=== PATIENT | male | born 1950 | race Caucasian/White ===

== ENCOUNTER 2020-03-28 08:29 | Outpatient (REF) | payer MEDICARE, SELFPAY ==
[2020-03-28 08:51] LABS: MANUAL DIFF FLAG NO
[2020-03-28 08:54] LABS: Basophils Absolute Auto 0.1 X10*3/uL (0.0-0.2); Basophils Percent Auto 0.6 % (0-2); Eosinophils Absolute Auto 0.3 X10*3/uL (0.0-0.4); Eosinophils Percent Auto 3.1 % (0-4); Hemoglobin 14.1 g/dl (14.0-18.0); Imm Gran Abs Auto 0.02 X10*3/uL (0.00-0.03); Imm Gran Pct Auto 0.2 % (0.0-0.4); Lymphocytes Absolute Auto 2.6 X10*3/uL (1.2-4.9); Lymphocytes Percent Auto 29.6 % (20-40); Mean Corpuscular Hemoglobin 30.7 pg (27.0-33.0); Mean Corpuscular Volume 95.9 fL (80-98); Mean Platelet Volume 10.6 fL (9.4-12.4); Monocytes Absolute Auto 0.6 X10*3/uL (0.1-1.2); Monocytes Percent Auto 6.4 % (2-11); Neutrophils Absolute Auto 5.2 X10*3/uL (2.0-8.3); Neutrophils Percent Auto 60.1 % (45-73); Platelet Count 245 X10*3/uL (160-400); Red Blood Count 4.59 X10*6/uL (4.60-5.80); Red Cell Distribution Width 11.8 % (11.0-16.0); White Blood Count 8.7 X10*3/uL (4.8-10.8)
[2020-03-28 09:02] LABS: Estimated Average Glucose 151 mg/dL; Hemoglobin A1c % 6.9 %
[2020-03-28 09:16] LABS: Alanine Aminotransferase 22 U/L (0-40); Albumin Level 4.3 g/dL (3.5-5.0); Alkaline Phosphatase 54 U/L (39-117); Anion Gap 12 (12-20); Aspartate Amino Transferase 18 U/L (5-37); Bilirubin Total 0.3 mg/dL (0.0-1.0); Blood Urea Nitrogen 23 mg/dL (9-16); Calcium 8.7 mg/dL (8.4-10.2); Carbon Dioxide 26 mmol/L (22-29); Chloride 106 mmol/L (96-108); Cholesterol 129 mg/dL; Estimated Glomerular Filt Rate 58; Glucose Fasting 144 mg/dL (60-99); HDL Cholesterol 41 mg/dL; LDL Cholesterol Calculated 56 mg/dl; Potassium 4.4 mmol/l (3.3-5.1); Sodium 140 mmol/L (135-145); Total Protein 6.6 g/dL (6.5-8.0); Triglycerides 160 mg/dL
[2020-03-28 09:36] LABS: Thyroid Stimulating Hormone 1.42 mIU/mL (0.32-4.0)
[2020-03-28 09:48] LABS: Creatinine Urine 137.87 mg/dL; Microalbum/Creatinine Ratio Ur 4.3 ug/mg cr
== END 2020-03-28 08:30 | disposition home or self-care (01) ==
LOC: HO.LAB 08:29
PROVIDERS: PCP Physician Assistant; Visit Provider Physician Assistant
DX: I25.10 Atherosclerotic heart disease of native coronary artery without angina pectoris (principal); E11.9 Type 2 diabetes mellitus without complications; I10 Essential (primary) hypertension
CPT/HCPCS: 36415; 80053; 80061; 82043; 83036; 84443; 85025

== ENCOUNTER 2020-04-03 09:29 | Day surgery (SDC) | payer MEDICARE, SELFPAY ==
[2020-03-31 14:42] VITALS: BMI 23.3
--- NOTE | 2020-04-01 10:01 | HO.ANESPROP2 ---
Documented by User: Evy Gallardo 04/01/20 10:04 HPI - Anesthesia Eval Consult details Narrative: 69yo M for Colonoscopy PMFSH Past Medical History Medical History Asthma Back pain CAD (coronary artery disease) Diabetes Elevated cholesterol HTN (hypertension) Myocardial infarction Family History Family History Father Medical history unknown Mother COPD (chronic obstructive pulmonary disease) Myocardial infarction CAD (coronary artery disease) Surgical History Surgical History H/O arthroscopy H/O colonoscopy Hx of heart artery stent Social History Social History Smoking Status: Former smoker Smoking Quit Date: 1989 Use of substances other than those prescribed or required for medical reasons: No Have you been hit, kicked, punched, or otherwise hurt by someone within the past year? If so, by whom?: No Advance Directives Information Provided: No Recently lost weight without trying: No Narrative Narrative: Stable CAD. Follows with PCP. Meds Allergies Allergy/AdvReac Type Severity Reaction Status Date / Time clopidogrel [Plavix] Allergy Intermediate extremity Verified 03/31/20 14:51 swelling, itch shellfish derived Allergy Intermediate Swelling Verified 03/31/20 14:51 simvastatin Allergy Intermediate Muscle Pain Verified 03/31/20 14:51 Ticlid Allergy Intermediate extremity Verified 03/31/20 14:51 swelling, itch atorvastatin AdvReac Intermediate muscle Verified 03/31/20 14:51 weakness, other Darvon AdvReac Mild headache/mi Verified 03/31/20 14:51 graine Home Medications Medication Instructions Recorded Confirmed Type albuterol sulfate 90 mcg/actuation 2 puff INHALATION Q6H PRN 03/30/20 03/31/20 History aerosol inhaler aspirin 81 mg tablet,delayed 81 mg PO DAILY 03/30/20 03/31/20 History release carvedilol 6.25 mg tablet 6.25 mg PO BID 03/30/20 03/31/20 History ezetimibe 10 mg tablet 10 mg PO DAILY 03/30/20 03/31/20 History latanoprost 0.005 % eye drops 1 drp OPHTHALMIC (EYE) QPM 03/30/20 03/31/20 History lisinopril 2.5 mg tablet 2.5 mg PO DAILY 03/30/20 03/31/20 History metformin 1,000 mg tablet 1,000 mg PO BID 03/30/20 03/31/20 History nitroglycerin 0.4 mg sublingual 0.4 mg SUBLINGUAL Q5M PRN 03/30/20 03/31/20 History tablet rosuvastatin 10 mg tablet 10 mg PO DAILY 03/30/20 03/31/20 History sitagliptin 100 mg tablet 100 mg PO DAILY 03/30/20 03/31/20 History tadalafil 5 mg tablet 5 mg PO DAILY 03/30/20 03/31/20 History Exam Exam Date and Time: April 01, 2020 1001 Height,Weight and Vital Signs: Height 5 ft 6 in Weight 65.771 kg Pertinent Lab Results Pertinent Lab Results: Laboratory Tests 03/28/20 03/28/20 08:42 08:42 WBC 8.7 Hgb 14.1 Hct 44.0 Plt Count 245 Sodium 140 Potassium 4.4 Chloride 106 BUN 23 H Creatinine 1.23 Assessment and Plan Assessment Anesthesia Assessment: Chart Reviewed Documented by User: Marta Paez 04/03/20 10:35 [facility] Past Medical History Medical History Asthma Back pain CAD (coronary artery disease) Diabetes Elevated cholesterol HTN (hypertension) Myocardial infarction Family History Family History Father Medical history unknown Mother COPD (chronic obstructive pulmonary disease) Myocardial infarction CAD (coronary artery disease) Surgical History Surgical History H/O arthroscopy H/O colonoscopy Hx of heart artery stent Social History Social History Smoking Status: Former smoker Smoking Quit Date: 1989 Use of substances other than those prescribed or required for medical reasons: No Have you been hit, kicked, punched, or otherwise hurt by someone within the past year? If so, by whom?: No Advance Directives Information Provided: No Recently lost weight without trying: No Meds Allergies Allergy/AdvReac Type Severity Reaction Status Date / Time clopidogrel [Plavix] Allergy Intermediate extremity Verified 03/31/20 14:51 swelling, itch shellfish derived Allergy Intermediate Swelling Verified 03/31/20 14:51 simvastatin Allergy Intermediate Muscle Pain Verified 03/31/20 14:51 Ticlid Allergy Intermediate extremity Verified 03/31/20 14:51 swelling, itch atorvastatin AdvReac Intermediate muscle Verified 03/31/20 14:51 weakness, other Darvon AdvReac Mild headache/mi Verified 03/31/20 14:51 graine Home Medications Medication Instructions Recorded Confirmed Type albuterol sulfate 90 mcg/actuation 2 puff INHALATION Q6H PRN 03/30/20 03/31/20 History aerosol inhaler aspirin 81 mg tablet,delayed 81 mg PO DAILY 03/30/20 03/31/20 History release carvedilol 6.25 mg tablet 6.25 mg PO BID 03/30/20 03/31/20 History ezetimibe 10 mg tablet 10 mg PO DAILY 03/30/20 03/31/20 History latanoprost 0.005 % eye drops 1 drp OPHTHALMIC (EYE) QPM 03/30/20 03/31/20 History lisinopril 2.5 mg tablet 2.5 mg PO DAILY 03/30/20 03/31/20 History metformin 1,000 mg tablet 1,000 mg PO BID 03/30/20 03/31/20 History nitroglycerin 0.4 mg sublingual 0.4 mg SUBLINGUAL Q5M PRN 03/30/20 03/31/20 History tablet rosuvastatin 10 mg tablet 10 mg PO DAILY 03/30/20 03/31/20 History sitagliptin 100 mg tablet 100 mg PO DAILY 03/30/20 03/31/20 History tadalafil 5 mg tablet 5 mg PO DAILY 03/30/20 03/31/20 History Exam Airway Mallampati Class: I TM Dist: >3cm Neck ROM: Full Heart: RRR Lungs: CTA Assessment and Plan Assessment Anesthesia Assessment: Anesthesia Plan Discussed and Chart Reviewed Final Anesthetic Review NPO: Yes ASA Class: III Final Preanesthetic Review: Meds/Allgs Chart Reviewed, Consent Obtained/Reviewed and Anes Risks/Benef Reviewed Patient Risk: Intermediate Procedure Risk: Low Anesthetic Plan Anesthetic Plan: MAC: Disposition: Standard PACU
[2020-04-03 10:04] VITALS: BP 106/63; PULSE 78; RESP 18; TEMP 36.2; O2SAT 98
[2020-04-03] MEDS: Lactated Ringers 1,000 ML 100 ML IVCONT (10:12)
[2020-04-03 10:14] LABS: Glucose, Whole Blood 120 mg/dL (60-115)
[2020-04-03 11:03] VITALS: BP 85/42; PULSE 73; RESP 12; TEMP 35.9; O2SAT 95
--- NOTE | 2020-04-03 11:05 | PM.OP ---
Brief Operative Note Date of procedure: 04/03/20 Pre-op diagnosis: Screening Post-op diagnosis: other (Colon polyps, Diverticulosis, Internal hemorrhoids) Procedure: Colonoscopy to cecum and TI with biopsy and removal of polyps Surgeon: Calixto Goncalves Anesthesia: MAC Estimated blood loss (mL): 3.0 Pathology: other (A. Proximal ascending colon polyps B. Transverse colon polyp C. Polyp at 50cm) Condition: stable Disposition: PACU
[2020-04-03 11:18] VITALS: BP 92/50; PULSE 67; RESP 16; O2SAT 96
--- NOTE | 2020-04-03 11:20 | OP_ITS ---
SURGEON: Calixto Goncalves MD INDICATIONS: The patient presents for evaluation of colorectal cancer screening and personal history of tubular adenoma of the colon. Full consent has been obtained from him for this, including risks of bleeding and perforation. PREOPERATIVE DIAGNOSIS: POSTOPERATIVE DIAGNOSIS: PROCEDURE PERFORMED: Colonoscopy to the cecum and terminal ileum with biopsy and removal of polyps. ESTIMATED BLOOD LOSS: COMPLICATIONS: ANESTHESIA: Monitored anesthesia care. ASSISTANTS: SPECIMENS: PREOPERATIVE DIAGNOSES: Colorectal cancer screening and personal history of tubular adenoma of the colon. POSTOPERATIVE DIAGNOSES: Colorectal cancer screening and personal history of tubular adenoma of the colon, colon polyps, diverticulosis and internal hemorrhoids. DESCRIPTION OF PROCEDURE: The patient was placed in the left lateral decubitus position. The digital rectal exam revealed no abnormalities. The Olympus video pediatric colonoscope was entered into the rectum and advanced easily to the cecum. Once in the cecum, I did identify cecal pouch with appendiceal orifice and a normal-appearing ileocecal valve. The terminal ileum was cannulated and appeared normal. The scope was withdrawn back in the colon. The entire cecum and ileocecal valve appeared normal. The scope was slowly withdrawn assessing all mucosal surfaces carefully. Preparation was excellent. In the proximal ascending colon, were several 5 mm or less flat polyps, which were all biopsied and completely removed with cold biopsy forceps. In the transverse colon and at 50 cm, were flat approximately 4 or 5 mm polyps, which were biopsied and completely removed with cold biopsy forceps. I did not visualize any other polyps, colitis, nor angiodysplasia. There was a moderate amount of sigmoid diverticulosis. In the rectum, scope was retroflexed visualizing internal hemorrhoids, but no other pathology. The rectal mucosa appeared normal. The scope was straightened out and withdrawn from the patient. He tolerated the procedure well and was returned to recovery area in stable condition. IMPRESSION: 1. Colon polyps, status post biopsy and removal. 2. Diverticulosis. 3. Internal hemorrhoids. PLAN: The results of the biopsy will be checked. I would recommend a repeat colonoscopy in 5 years for further surveillance. He was advised to resume his aspirin in 24 hours. This has been discussed with his . MD DERIC Infante/MARION / [id number]
[2020-04-03 11:33] VITALS: BP 111/68; PULSE 60; RESP 16; TEMP 36.1; O2SAT 97
--- NOTE | 2020-04-03 12:25 | HO.POSTANES ---
Post Anesthesia Evaluation Post Anesthesia Evaluation Vital Signs: Vital Signs Temp Pulse Resp BP Pulse Ox 04/03/20 11:33 97 F 60 16 111/68 97 04/03/20 11:18 67 16 92/50 L 96 04/03/20 11:03 96.6 F L 73 12 85/42 L 95 04/03/20 10:04 97.2 F 78 18 106/63 98 Anesthesia: Monitored Mental Status: Awake Pain Control: Satisfactory Nausea/Vomiting: None Hydration: Adequate Anesthesia-Related Issues: No Anes. Related Issues
== END 2020-04-03 12:15 | disposition home or self-care (01) ==
PROVIDERS: PCP Physician Assistant; Visit Provider Internal Medicine
PROC: 0DJD8ZZ Inspection of Lower Intestinal Tract, Via Natural or Artificial Opening Endoscopic (ICD-10-PCS; CPT 45378; principal; 2020-04-03 10:30)
DX: Z12.11 Encounter for screening for malignant neoplasm of colon (principal); Z86.010 Personal history of colon polyps; D12.2 Benign neoplasm of ascending colon; D12.3 Benign neoplasm of transverse colon; D12.5 Benign neoplasm of sigmoid colon; K57.30 Diverticulosis of large intestine without perforation or abscess without bleeding; K64.8 Other hemorrhoids; J45.909 Unspecified asthma, uncomplicated; I10 Essential (primary) hypertension; E11.9 Type 2 diabetes mellitus without complications; I25.10 Atherosclerotic heart disease of native coronary artery without angina pectoris; Z98.61 Coronary angioplasty status; Z79.82 Long term (current) use of aspirin; Z79.84 Long term (current) use of oral hypoglycemic drugs; Z79.899 Other long term (current) drug therapy; Z87.891 Personal history of nicotine dependence; Z88.8 Allergy status to other drugs, medicaments and biological substances
CPT/HCPCS: 45380; 82947; 88305

== ENCOUNTER 2020-06-29 08:58 | Outpatient (REF) | payer MEDICARE, SELFPAY ==
[2020-06-29 10:32] LABS: MANUAL DIFF FLAG NO
[2020-06-29 10:36] LABS: Basophils Absolute Auto 0.1 X10*3/uL (0.0-0.2); Basophils Percent Auto 0.8 % (0-2); Eosinophils Absolute Auto 0.2 X10*3/uL (0.0-0.4); Eosinophils Percent Auto 2.4 % (0-4); Hematocrit 46.4 % (42-52); Hemoglobin 14.9 g/dl (14.0-18.0); Imm Gran Abs Auto 0.04 X10*3/uL (0.00-0.03); Imm Gran Pct Auto 0.4 % (0.0-0.4); Lymphocytes Absolute Auto 2.4 X10*3/uL (1.2-4.9); Lymphocytes Percent Auto 24.1 % (20-40); Mean Corpuscular HGB Conc 32.1 g/dl (31.0-36.0); Mean Corpuscular Hemoglobin 30.8 pg (27.0-33.0); Mean Corpuscular Volume 95.9 fL (80-98); Monocytes Absolute Auto 0.6 X10*3/uL (0.1-1.2); Monocytes Percent Auto 6.5 % (2-11); Neutrophils Absolute Auto 6.5 X10*3/uL (2.0-8.3); Neutrophils Percent Auto 65.8 % (45-73); Platelet Count 221 X10*3/uL (160-400); Red Blood Count 4.84 X10*6/uL (4.60-5.80); White Blood Count 9.9 X10*3/uL (4.8-10.8)
[2020-06-29 11:08] LABS: Alanine Aminotransferase 22 U/L (0-40); Albumin Level 4.4 g/dL (3.5-5.0); Alkaline Phosphatase 61 U/L (39-117); Anion Gap 13 (12-20); Aspartate Amino Transferase 21 U/L (5-37); Bilirubin Total 0.6 mg/dL (0.0-1.0); Blood Urea Nitrogen 19 mg/dL (9-16); Calcium 9.6 mg/dL (8.4-10.2); Carbon Dioxide 29 mmol/L (22-29); Chloride 106 mmol/L (96-108); Cholesterol 117 mg/dL; Estimated Glomerular Filt Rate 57; Glucose Fasting 147 mg/dL (60-99); HDL Cholesterol 40 mg/dL; LDL Cholesterol Calculated 64 mg/dl; Potassium 5.2 mmol/L (3.3-5.1); Sodium 143 mmol/L (135-145); Total Protein 6.9 g/dL (6.5-8.0); Triglycerides 66 mg/dL
[2020-06-29 11:41] LABS: Estimated Average Glucose 143 mg/dL; Hemoglobin A1c % 6.6 %
== END 2020-06-29 08:59 | disposition home or self-care (01) ==
LOC: HO.WFDLDS 08:58
PROVIDERS: Visit Provider Physician Assistant
DX: E11.9 Type 2 diabetes mellitus without complications (principal); I25.10 Atherosclerotic heart disease of native coronary artery without angina pectoris
CPT/HCPCS: 36415; 80053; 80061; 83036; 85025

== ENCOUNTER 2021-01-02 08:11 | Outpatient (REF) | payer MEDICARE, SELFPAY ==
[2021-01-02 09:04] LABS: Hematocrit 44.9 % (42-52); Hemoglobin 14.6 g/dl (14.0-18.0); Mean Corpuscular HGB Conc 32.5 g/dl (31.0-36.0); Mean Corpuscular Hemoglobin 30.7 pg (27.0-33.0); Mean Corpuscular Volume 94.3 fL (80-98); Mean Platelet Volume 10.6 fL (9.4-12.4); Platelet Count 291 X10*3/uL (160-400); Red Blood Count 4.76 X10*6/uL (4.60-5.80); Red Cell Distribution Width 12.2 % (11.0-16.0); White Blood Count 10.2 X10*3/uL (4.8-10.8)
[2021-01-02 09:13] LABS: Estimated Average Glucose 151 mg/dL; Hemoglobin A1c % 6.9 %
[2021-01-02 09:58] LABS: Alanine Aminotransferase 20 U/L (0-40); Albumin Level 4.3 g/dL (3.5-5.0); Alkaline Phosphatase 61 U/L (39-117); Anion Gap 15 (12-20); Aspartate Amino Transferase 17 U/L (5-37); Bilirubin Total 0.5 mg/dL (0.0-1.0); Blood Urea Nitrogen 18 mg/dL (9-16); Calcium 10.1 mg/dL (8.4-10.2); Carbon Dioxide 24 mmol/L (22-29); Chloride 106 mmol/L (96-108); Cholesterol 111 mg/dL; Estimated Glomerular Filt Rate 50; Glucose Fasting 153 mg/dL (60-99); HDL Cholesterol 39 mg/dL; LDL Cholesterol Calculated 47 mg/dl; Sodium 140 mmol/L (135-145); Total Protein 6.8 g/dL (6.5-8.0); Triglycerides 127 mg/dL
[2021-01-02 10:12] LABS: TSH reflex Free T4 1.38 uIU/mL (0.32-4.0)
[2021-01-02 10:24] LABS: Creatinine Urine 69.08 mg/dL; Microalbum/Creatinine Ratio Ur 15.9 ug/mg cr
== END 2021-01-02 08:12 | disposition home or self-care (01) ==
LOC: HO.LAB 08:11
PROVIDERS: PCP Physician Assistant; Visit Provider Physician Assistant
DX: Z12.5 Encounter for screening for malignant neoplasm of prostate (principal); I10 Essential (primary) hypertension; E11.9 Type 2 diabetes mellitus without complications
CPT/HCPCS: 36415; 80053; 80061; 82043; 83036; 84153; 84443; 85027

== ENCOUNTER 2021-01-27 09:41 | Outpatient (REF) | payer MEDICARE, SELFPAY ==
--- NOTE | ~2021-01-27 | CT_ITS ---
EXAMINATION: CT ABDOMEN AND PELVIS WITH CONTRAST CLINICAL INFORMATION: Left lower quadrant pain COMPARISON: None TECHNIQUE: Multidetector volumetric images were obtained from the superior aspect of the liver through the pubic symphysis following administration 85 mL of Omnipaque 350 intravenous contrast. Sagittal and coronal reformatted images were obtained on the technologist's workstation. Oral contrast: Yes This CT examination was performed using dose optimization techniques as appropriate, variously including the following: *Automated exposure control *Adjustment of mA and/or kV according to patient size (this includes techniques or standardized protocols for targeted exams where dose is matched to indication/reason for exam; i.e. extremities or head) *Use of iterative reconstruction technique DLP: 351 mGy-cm FINDINGS: LUNG BASES: There is a 3 mm semisolid left lower lobe pulmonary nodule. Bases are otherwise clear. LIVER, GALLBLADDER, AND BILIARY TREE: The liver is normal in size, shape, and attenuation. No focal hepatic lesion or biliary ductal dilatation is present. The gallbladder is unremarkable with no evidence of radiopaque gallstones, gallbladder wall thickening, or obvious pericholecystic inflammatory changes. PANCREAS: Unremarkable. SPLEEN: There is a wedge-shaped area of decreased attenuation seen in the spleen. This probably represents a splenic infarct. Differential would include changes related to trauma. There is no ascites. ADRENAL GLANDS: Unremarkable. KIDNEYS AND URETERS: The kidneys are normal in size, shape, and attenuation. No hydronephrosis, hydroureter, or calculi seen. No perinephric stranding. BLADDER: Unremarkable. GASTROINTESTINAL TRACT: There is diverticulosis of the colon. No evidence of diverticulitis is seen. There is question of mild bowel wall thickening of the duodenum. The small and large bowel are otherwise unremarkable. The appendix is unremarkable. ABDOMINAL WALL: There is a small right inguinal hernia containing fat. LYMPH NODES: Normal. VASCULAR: There is evidence of atherosclerotic disease. No aneurysm is seen. PELVIC VISCERA: The prostate gland is slightly enlarged measuring 3.8 x 4.2 cm. OSSEOUS STRUCTURES: Unremarkable. CT/CT abdomen pelvis w con IMPRESSION: Wedge-shaped low-attenuation in the spleen suggestive of a splenic infarct. Differential would include changes related to trauma. Clinical correlation recommended. Diverticulosis of the colon. No evidence of diverticulitis. Question wall thickening of the duodenum.
[2021-01-27] MEDS: iohexoL 350 MG/ML 100 ML INFUS..BTL IV (12:51)
[2021-01-27] MEDS: Barium Sulfate Oral (Berry) 450 ML ORAL.SUSP 900 ML PO (12:52)
== END 2021-01-27 09:42 | disposition home or self-care (01) ==
LOC: HO.CT 09:41
PROVIDERS: PCP Physician Assistant; Visit Provider Physician Assistant
DX: R10.32 Left lower quadrant pain (principal)
CPT/HCPCS: 74177; Q9967

== ENCOUNTER 2021-04-17 08:02 | Outpatient (REF) | payer MEDICARE, SELFPAY ==
[2021-04-17 10:14] LABS: Estimated Average Glucose 140 mg/dL; Hemoglobin A1c % 6.5 %
[2021-04-17 10:20] LABS: Alanine Aminotransferase 27 U/L (0-40); Albumin Level 4.2 g/dL (3.5-5.0); Alkaline Phosphatase 55 U/L (39-117); Anion Gap 12 (12-20); Aspartate Amino Transferase 18 U/L (5-37); Bilirubin Total 0.6 mg/dL (0.0-1.0); Blood Urea Nitrogen 17 mg/dL (9-16); Calcium 9.5 mg/dL (8.4-10.2); Carbon Dioxide 26 mmol/L (22-29); Chloride 107 mmol/L (96-108); Cholesterol 134 mg/dL; Estimated Glomerular Filt Rate 58; Glucose Fasting 125 mg/dL (60-99); HDL Cholesterol 39 mg/dL; LDL Cholesterol Calculated 69 mg/dl; Potassium 5.2 mmol/L (3.3-5.1); Sodium 140 mmol/L (135-145); Total Protein 6.5 g/dL (6.5-8.0); Triglycerides 130 mg/dL
[2021-04-17 10:43] LABS: TSH reflex Free T4 1.54 uIU/mL (0.32-4.0)
== END 2021-04-17 08:03 | disposition home or self-care (01) ==
LOC: HO.LAB 08:02
PROVIDERS: PCP Physician Assistant; Visit Provider Physician Assistant
DX: R10.32 Left lower quadrant pain (principal); I10 Essential (primary) hypertension; E11.9 Type 2 diabetes mellitus without complications
CPT/HCPCS: 36415; 80048; 80053; 80061; 83036; 84443

== ENCOUNTER 2021-07-16 09:16 | Outpatient (REF) | payer MEDICARE, SELFPAY ==
[2021-07-16 10:00] LABS: Hematocrit 43.2 % (42.0-52.0); Mean Corpuscular HGB Conc 32.4 g/dl (31.0-36.0); Mean Corpuscular Hemoglobin 30.7 pg (27.0-33.0); Mean Corpuscular Volume 94.7 fL (80.0-98.0); Mean Platelet Volume 10.9 fL (9.4-12.4); Platelet Count 227 X10*3/uL (160-400); Red Blood Count 4.56 X10*6/uL (4.60-5.80); Red Cell Distribution Width 12.1 % (11.0-16.0); White Blood Count 8.5 X10*3/uL (4.8-10.8)
[2021-07-16 10:25] LABS: Alanine Aminotransferase 27 U/L (0-40); Albumin Level 4.2 g/dL (3.5-5.0); Alkaline Phosphatase 55 U/L (39-117); Anion Gap 12 (12-20); Aspartate Amino Transferase 19 U/L (5-37); Bilirubin Total 0.5 mg/dL (0.0-1.0); Blood Urea Nitrogen 22 mg/dL (9-16); Calcium 9.7 mg/dL (8.4-10.2); Carbon Dioxide 27 mmol/L (22-29); Chloride 108 mmol/L (96-108); Cholesterol 128 mg/dL; Estimated Glomerular Filt Rate > 60; Glucose Fasting 133 mg/dL (60-99); HDL Cholesterol 40 mg/dL; LDL Cholesterol Calculated 61 mg/dl; Potassium 4.7 mmol/L (3.3-5.1); Sodium 142 mmol/L (135-145); Total Protein 6.6 g/dL (6.5-8.0); Triglycerides 138 mg/dL
[2021-07-16 10:26] LABS: Estimated Average Glucose 148 mg/dL; Hemoglobin A1c % 6.8 %
[2021-07-16 10:50] LABS: TSH reflex Free T4 1.22 uIU/mL (0.32-4.0)
[2021-07-16 11:19] LABS: Creatinine Urine 177.25 mg/dL; Microalbum/Creatinine Ratio Ur 12.9 ug/mg cr
[2021-07-16 11:21] LABS: Prostate Specific Antigen Scr 3.94 ng/mL (<0.05-4.0)
== END 2021-07-16 09:17 | disposition home or self-care (01) ==
LOC: HO.LAB 09:16
PROVIDERS: PCP Physician Assistant; Visit Provider Physician Assistant
DX: Z12.5 Encounter for screening for malignant neoplasm of prostate (principal); E11.9 Type 2 diabetes mellitus without complications; I10 Essential (primary) hypertension
CPT/HCPCS: 36415; 80053; 80061; 82043; 83036; 84153; 84443; 85027

== ENCOUNTER 2021-12-18 07:13 | Outpatient (REF) | payer MEDICARE, SELFPAY ==
[2021-12-18 07:49] LABS: Hematocrit 46.1 % (42.0-52.0); Hemoglobin 14.8 g/dl (14.0-18.0); Mean Corpuscular HGB Conc 32.1 g/dl (31.0-36.0); Mean Corpuscular Hemoglobin 30.3 pg (27.0-33.0); Mean Corpuscular Volume 94.5 fL (80.0-98.0); Mean Platelet Volume 10.2 fL (9.4-12.4); Platelet Count 247 X10*3/uL (160-400); Red Blood Count 4.88 X10*6/uL (4.60-5.80); Red Cell Distribution Width 12.3 % (11.0-16.0); White Blood Count 7.9 X10*3/uL (4.8-10.8)
[2021-12-18 08:21] LABS: Estimated Average Glucose 148 mg/dL; Hemoglobin A1c % 6.8 %
[2021-12-18 09:07] LABS: Alanine Aminotransferase 32 U/L (0-40); Albumin Level 4.3 g/dL (3.5-5.0); Alkaline Phosphatase 59 U/L (39-117); Anion Gap 10 (12-20); Aspartate Amino Transferase 25 U/L (5-37); Bilirubin Total < 0.2 mg/dL (0.0-1.0); Blood Urea Nitrogen 17 mg/dL (9-16); Calcium 9.4 mg/dL (8.4-10.2); Carbon Dioxide 28 mmol/L (22-29); Chloride 107 mmol/L (96-108); Cholesterol 124 mg/dL; Estimated Glomerular Filt Rate 50; Glucose Fasting 173 mg/dL (60-99); HDL Cholesterol 35 mg/dL; LDL Cholesterol Calculated 57 mg/dl; Sodium 140 mmol/L (135-145); Total Protein 6.7 g/dL (6.5-8.0); Triglycerides 160 mg/dL
== END 2021-12-18 07:14 | disposition home or self-care (01) ==
LOC: HO.LAB 07:13
PROVIDERS: PCP Physician Assistant; Visit Provider Physician Assistant
DX: E11.9 Type 2 diabetes mellitus without complications (principal); I10 Essential (primary) hypertension
CPT/HCPCS: 36415; 80053; 80061; 83036; 85027

== ENCOUNTER 2021-12-23 13:57 | Outpatient (REF) | payer MEDICARE, SELFPAY ==
--- NOTE | ~2021-12-23 | XR_ITS ---
EXAMINATION: XR CHEST CLINICAL INFORMATION: Shortness of breath COMPARISON: Previous chest x-ray November 2007 TECHNIQUE: 2 views of the chest were obtained. FINDINGS: No significant abnormality is noted involving the heart, lungs, mediastinum, bony thorax or soft tissues. XR/XR chest 2V IMPRESSION: Unremarkable examination.
== END 2021-12-23 13:58 | disposition home or self-care (01) ==
LOC: HO.XRAY 13:57
PROVIDERS: PCP Physician Assistant; Visit Provider Physician Assistant
DX: R06.02 Shortness of breath (principal)
CPT/HCPCS: 71046

== ENCOUNTER 2022-01-13 07:50 | Outpatient (REF) | payer MEDICARE, SELFPAY ==
--- NOTE | 2022-01-13 13:13 | PFT_ITS ---
FLOWS: FEV1 96% of predicted at 2.69 L. FVC 94% of predicted at 3.59 L. FEV1 to FVC ratio of 0.75. No bronchodilator response. LUNG VOLUMES: Total lung capacity 83% of predicted at 5.30 L. Residual volume 73% of predicted at 1.67 L. Slow vital capacity 89% of predicted at 3.63 L. Expiratory reserve volume 57% of predicted at 0.60 L. Diffusion capacity is mildly decreased. IMPRESSION: No obstructive or restrictive ventilatory defect. No bronchodilator response. Decreased diffusion capacity suggests emphysema. Mitch Torres MD AP/MODL / [id number]
== END 2022-01-13 07:51 | disposition home or self-care (01) ==
LOC: HO.RESP 07:50
PROVIDERS: PCP Physician Assistant; Visit Provider Physician Assistant
DX: R06.02 Shortness of breath (principal)
CPT/HCPCS: 94060; 94727; 94729

== ENCOUNTER 2022-06-18 07:37 | Outpatient (REF) | payer MEDICARE, SELFPAY ==
[2022-06-18 08:32] LABS: Hematocrit 43.6 % (42.0-52.0); Hemoglobin 14.1 g/dl (14.0-18.0); Mean Corpuscular HGB Conc 32.3 g/dl (31.0-36.0); Mean Corpuscular Hemoglobin 30.7 pg (27.0-33.0); Mean Platelet Volume 10.8 fL (9.4-12.4); Platelet Count 236 X10*3/uL (160-400); Red Blood Count 4.59 X10*6/uL (4.60-5.80); Red Cell Distribution Width 11.9 % (11.0-16.0); White Blood Count 7.6 X10*3/uL (4.8-10.8)
[2022-06-18 08:50] LABS: Estimated Average Glucose 148 mg/dL; Hemoglobin A1c % 6.8 %
[2022-06-18 09:16] LABS: Alanine Aminotransferase 18 U/L (0-40); Albumin Level 4.1 g/dL (3.5-5.0); Alkaline Phosphatase 47 U/L (39-117); Anion Gap 12 (12-20); Aspartate Amino Transferase 15 U/L (5-37); Bilirubin Total 0.5 mg/dL (0.0-1.0); Blood Urea Nitrogen 19 mg/dL (9-16); Calcium 9.6 mg/dL (8.4-10.2); Carbon Dioxide 27 mmol/L (22-29); Chloride 109 mmol/L (96-108); Cholesterol 119 mg/dL; Estimated Glomerular Filt Rate 58; Glucose Fasting 128 mg/dL (60-99); HDL Cholesterol 37 mg/dL; LDL Cholesterol Calculated 55 mg/dl; Potassium 4.7 mmol/L (3.3-5.1); Sodium 143 mmol/L (135-145); Total Protein 6.3 g/dL (6.5-8.0); Triglycerides 138 mg/dL
[2022-06-18 09:36] LABS: TSH reflex Free T4 1.56 uIU/mL (0.32-4.0)
[2022-06-18 10:40] LABS: Creatinine Urine 214.05 mg/dL; Microalbum/Creatinine Ratio Ur 14.9 ug/mg cr
== END 2022-06-18 07:38 | disposition home or self-care (01) ==
LOC: HO.LAB 07:37
PROVIDERS: PCP Physician Assistant; Visit Provider Physician Assistant
DX: E11.9 Type 2 diabetes mellitus without complications (principal); I10 Essential (primary) hypertension; I25.10 Atherosclerotic heart disease of native coronary artery without angina pectoris
CPT/HCPCS: 36415; 80053; 80061; 82043; 83036; 84443; 85027

== ENCOUNTER 2022-06-21 13:31 | Outpatient (REF) | payer MEDICARE, SELFPAY ==
--- NOTE | ~2022-06-21 | XR_ITS ---
EXAMINATION: XR LUMBOSACRAL SPINE CLINICAL INFORMATION: Dorsalgia COMPARISON: None TECHNIQUE: Three views of the lumbosacral spine. FINDINGS: There is maintained thoracic kyphosis. The vertebral heights and alignment is normal. The disc heights are normal. No visible acute fracture, dislocation or subluxation seen. No aggressive lytic or sclerotic process seen. The paravertebral soft tissues are normal. The SI joints are normal. XR/XR lumbar spine 2-3V IMPRESSION: Unremarkable lumbar spine exam. No visible acute fracture, dislocation or lytic process seen.
== END 2022-06-21 13:32 | disposition home or self-care (01) ==
LOC: HO.XRAY 13:31
PROVIDERS: PCP Physician Assistant; Visit Provider Nurse Practitioner Family
DX: M54.9 Dorsalgia, unspecified (principal)
CPT/HCPCS: 72100

== ENCOUNTER 2022-07-15 13:00 | Outpatient (RCR) | payer MEDICARE, SELFPAY ==
--- NOTE | 2022-07-12 17:12 | MHC.PT.EP ---
[facility] [place] Office [place] Office [place] Office [address] Padmini Sylvester [address] [phone] F: [phone] F: [phone] F: [phone] F: [phone] Physical Therapy Plan of Care Date of Evaluation: Date of Surgery: Diagnosis: dorsalgia Assessment: Patient is a 71 y.o. male who is referred to PT by Dr. Lizette Pineda MD with Dx of dorsalgia. PT diagnosis is acute on chronic low back pain from mechanical dysfunction from muscle imbalances in L hip and lumbar spine. Patient impairments include pain, limited ROM, weakness, antalgic gait. Patient current functional limitations are bending, twisting, lifting, golfing, prolonged sitting. Patient will benefit from skilled PT to address aforementioned impairments and functional limitations to meet established goals. Frequency and Duration: The patient will be seen 1x/week for 6 weeks Short Term Goals: 3 weeks Patient demonstrates consistency and independence with HEP to self manage symptoms. Patient presents with L hip flexion strength 5/5 to be able to bend/squat to low surfaces. Correction Goals: 6 weeks Patient presents with increased L glute med strength 5/5 to be able to sit for prolonged period of time without sxs. Patient presents with increased lumbar SB 15 degrees bilaterally to be able to play gold. Treatment Plan: Modalities to reduce pain, spasms and effusion. Manual therapy to restore motion and function. Therapeutic exercise to improve strength and flexibility. Neuromuscular re-education for posture and balance. Therapeutic activities to return to functional activities of daily living. Electronically signed by: Cameron Mathew, PT, DPT Please sign and return to therapist. Thank you for your referral.
--- NOTE | 2022-08-25 17:45 | MHC.PT.DC ---
[facility] [place] Office [place] Office [place] Office [address] Padmini Sylvester [address] [phone] F: [phone] F: [phone] F: [phone] F: [phone] Physical Therapy Discharge Report Diagnosis: dorsalgia Date of Surgery: Date of Evaluation: 07/12/22 Date of Discharge: 08/25/22 Treatments to Date: 2 Cancellations to Date: No Shows to Date: Discharge Status: Visit Non-compliance Discharge Summary: Patient was last treated in PT on 07/15/2022. He then let us know he was going on vacation and scheduled FUP for his return on 08/24/2022. He did not show to this appointment and is therefore discharged from PT. He will need new Rx to return to PT in the future. Electronically signed by: Cameron Mathew, PT, DPT Please sign and return to therapist. Thank you for your referral.
== END 2022-08-25 17:45 | disposition home or self-care (01) ==
LOC: HO.PT 13:00
PROVIDERS: PCP Physician Assistant; Visit Provider Nurse Practitioner Family
DX: M54.9 Dorsalgia, unspecified (principal)
CPT/HCPCS: 97110; 97140; 97162

== ENCOUNTER 2022-12-16 07:22 | Outpatient (REF) | payer MEDICARE, SELFPAY ==
[2022-12-16 08:46] LABS: Hematocrit 41.9 % (42.0-52.0); Hemoglobin 13.5 g/dl (14.0-18.0); Mean Corpuscular HGB Conc 32.2 g/dl (31.0-36.0); Mean Corpuscular Hemoglobin 30.7 pg (27.0-33.0); Mean Corpuscular Volume 95.2 fL (80.0-98.0); Mean Platelet Volume 10.7 fL (9.4-12.4); Platelet Count 245 X10*3/uL (160-400); Red Cell Distribution Width 11.9 % (11.0-16.0); White Blood Count 8.9 X10*3/uL (4.8-10.8)
[2022-12-16 09:35] LABS: Alanine Aminotransferase 17 U/L (0-40); Alkaline Phosphatase 50 U/L (39-117); Anion Gap 11 (12-20); Aspartate Amino Transferase 18 U/L (5-37); Bilirubin Total 0.3 mg/dL (0.0-1.0); Blood Urea Nitrogen 21 mg/dL (9-16); Calcium 9.4 mg/dL (8.4-10.2); Carbon Dioxide 25 mmol/L (22-29); Chloride 106 mmol/L (96-108); Cholesterol 113 mg/dL; Estimated Glomerular Filt Rate > 60; Glucose Fasting 98 mg/dL (60-99); HDL Cholesterol 35 mg/dL; LDL Cholesterol Calculated 43 mg/dl; Potassium 3.8 mmol/L (3.3-5.1); Sodium 138 mmol/L (135-145); Total Protein 6.5 g/dL (6.5-8.0); Triglycerides 175 mg/dL
[2022-12-16 09:36] LABS: Creatinine Urine 124.37 mg/dL; Microalbum/Creatinine Ratio Ur 15.2 ug/mg cr
== END 2022-12-16 07:23 | disposition home or self-care (01) ==
LOC: HO.LAB 07:22
PROVIDERS: PCP Internal Medicine; Visit Provider Physician Assistant
DX: I10 Essential (primary) hypertension (principal); I25.10 Atherosclerotic heart disease of native coronary artery without angina pectoris; E11.9 Type 2 diabetes mellitus without complications
CPT/HCPCS: 36415; 80053; 80061; 82043; 85027

== ENCOUNTER 2022-12-20 08:36 | Outpatient (AMB) | payer MEDICARE, SELFPAY ==
--- NOTE | 2022-12-20 08:42 | A.OFFPC_ITS ---
Vital Signs 12/20/22 08:43 Height 5 ft 7 in Weight 156 lb BMI 24.4 BP 138/72 Blood Pressure Location Lt brachial Position Sitting Pulse 59 Pulse Source Pulse Oximeter Temp Source Skin Pulse Oximetry (%) 98 Oxygen Delivery Method Room Air Intake Visit Reasons: DM, HTN, Back pain Allergies clopidogrel [Plavix] Allergy (Intermediate, Verified 12/20/22 09:04) extremity swelling, itch shellfish derived Allergy (Intermediate, Verified 12/20/22 09:04) Swelling simvastatin Allergy (Intermediate, Verified 12/20/22 09:04) Muscle Pain ticlopidine [From Ticlid] Allergy (Intermediate, Verified 12/20/22 09:04) Extremity swelling, itch atorvastatin Adverse Reaction (Intermediate, Verified 12/20/22 09:04) muscle weakness, other propoxyphene [From Darvon] Adverse Reaction (Mild, Verified 12/20/22 09:04) Headache, Migraine Medication List - Last Reconciled 12/20/22 by Lamont Currie PA-C albuterol sulfate 90 mcg/actuation 2 puffs inhalation Q6H aspirin 81 mg PO DAILY carvedilol 9.375 mg (1.5 x 6.25 mg) PO BID codeine-guaifenesin 10-100 mg/5 mL 5 mL PO Q6H PRN 5 days diclofenac sodium 1% (Arthritis Pain (diclofenac)) 2 grams topical QID PRN 10 days ezetimibe 10 mg PO DAILY latanoprost 0.005% 1 drp ophthalmic (eye) QPM lisinopril 2.5 mg PO DAILY metformin 1,000 mg PO BID 90 days nitroglycerin 0.4 mg sublingual Q5M PRN rosuvastatin 10 mg PO DAILY sitagliptin phosphate (Januvia) 100 mg PO DAILY 90 days tadalafil 5 mg PO DAILY Tobacco use date assessed: 12/20/22 Fall risk assessment: No Falls in past year Last assessed Fall Risk: 12/20/22 Dental Screening Dental Screen Date: 12/20/22 Did you have a dental visit in the last 12 months?: Yes Did you have a dental problem in the last 6 months where you did not have access to dental care?: No Was dental information given to patient?: Patient has dentist HPI DM, HTN, Back pain HPI Details Patient is a 72-year-old male here today for a f/u visit. Patient has a past medical history significant for type 2 diabetes, hypertension, hyperlipidemia, coronary artery disease, asthma, splenic infarct . . Concerns--> report having loose / water stools as of late, unclear if diet related. does report having heart burn at time as of late. Uses Tums which does relieve the symptoms. Of note noted slight anemia on most recent labs which makes peptic ulcer disease concerning. Will refer to GI for possible endoscopy. Also weighed reports issues with his concentration over the last 2 years, he is unsure if this is related to COVID infections or new COVID MRNA vaccines. He reports family members have noticed he has been impulsive and having difficulty with his concentration. He reports this has became an issue in his life. ? .. ? Type 2 diabetes: Most recent A1c is 6.8. Patient reports his diet has not changed much over last 3 months. LDL below 100. ? .. ? Hypertension: Patient reports blood pressures have been stable at home. Denies any headaches, chest pain, shortness of breath. .. CAD: Lipid panel has been acceptable on current dose of statin therapy. He otherwise denies any chest discomfort, dizziness, shortness of breath. 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 Laboratory Tests 12/16/22 12/16/22 12/16/22 07:32 07:32 07:35 RBC 4.40 L Hgb 13.5 L BUN 21 H Creatinine 1.10 Cholesterol 113 LDL Cholesterol, C alc 43 Urine Microalbumin 19.0 PFSH Medical History (Updated 12/20/22 @ 09:20 by Lamont Currie PA-C) Asthma Back pain CAD (coronary artery disease) Diabetes Elevated cholesterol HTN (hypertension) Myocardial infarction Surgical History H/O arthroscopy H/O cataract extraction H/O colonoscopy Hx of heart artery stent Family History Father Medical history unknown Mother COPD (chronic obstructive pulmonary disease) Myocardial infarction CAD (coronary artery disease) Social History Housing: House Alcohol intake: current Alcohol intake frequency: holidays/special occasions only Patient Tobacco Use Status: Former Tobacco user (33 years ago) Quit Date: 1985 Tobacco use type: Cigarette Cigarette Packs Per Day: 0.5 e-Cigarette/Vaping Use: Never Used Second Hand Smoke Exposure: No service: Yes Current occupational status: retired Cognitive needs: No Hearing needs: No Vision needs: No Questionnaire Thrive Questionnaire Date Thrive assessed: 06/20/22 AUDIT C Alcohol Use Questionnaire (AUDIT-C) 1. How often do you have a drink containing alcohol?: Monthly or less 2. How many drinks containing alcohol do you have on a typical day when you are drinking?: 1 or 2 3. How often do you have six or more drinks on one occasion?: Never Total Score: 1 AMARILYS-7 AMB Questionnaire AMARILYS-7 Date AMARILYS - 7 assessed: 06/20/22 Source: Developed by Drs. Calixto Gold, Daina Escobar, Jeremie Porras and colleagues, with an educational carri from [employer]. Review of Systems Const Denies headache(s) Eyes Denies loss of vision ENT Denies vertigo, Denies dizziness, Denies headache(s) and Denies sore throat Card Denies chest pain, Denies leg edema and Denies lightheadedness Resp Denies cough, Denies hemoptysis and Denies wheezing GI Denies abdominal pain, Denies melena, Denies constipation, Denies diarrhea and Denies vomiting Denies dysuria, Denies urinary frequency and Denies urinary urgency Musc Denies arthralgias, Denies joint swelling, Denies numbness and Denies tingling Neuro Denies Abnormal speech present, Denies behavioral changes, Denies vertigo, Denies dizziness, Denies headache(s), Denies loss of vision, Reports memory loss, Denies numbness and Denies tingling Psych Denies anxiety, Denies behavioral changes, Denies depression, Reports difficulty concentrating, Reports memory loss and Denies panic attacks Sumeet/Lymph Denies easy bleeding and Denies easy bruising Aller/Immun Denies wheezing Physical exam (Primary Care) Vital Signs: Last Vital Signs Pulse 59 12/20/22 08:43 BP 138/72 12/20/22 08:43 Pulse Ox 98 12/20/22 08:43 Oxygen Delivery Method Room Air 12/20/22 08:43 BMI result Body Mass Index 24.4 Tobacco/Smoking Status: Tobacco use Status Tobacco use date assessed 12/20/22 12/20/22 08:44 Patient Tobacco Use Status Former Tobacco user (33 12/20/22 08:44 years ago) Tobacco use type Cigarette 12/20/22 08:44 e-Cigarette/Vaping Use Never Used 12/20/22 08:44 Thrive Assessment: Date of Thrive Assessment Date Thrive assessed 06/20/22 12/20/22 08:44 Const General: healthy appearing, no acute distress, alert and awake Nutritional Appearance: well nourished Orientation/consciousness: oriented to person, oriented to place and oriented to time HENMT Ears: TM's normal bilaterally General nose exam: Normal nasal mucous membranes and turbinates present Eyes Conjunctivae: conjunctivae normal Sclerae: sclerae normal Pupils: Equal, round and reactive pupils present Neck Neck: Yes no lymphadenopathy and Yes no JVD Thyroid: Thyroid normal Carotids: no bruits Resp Effort & Inspection: normal respiratory effort and not tachypneic Auscultation: no crackles, no rales, no rhonchi and no wheezes Cardio Rate: regular rate Rhythm: regular rhythm Heart sounds: no murmurs and normal S1 and S2 GI Palpation (GI): Soft to palpation, nontender, no hepatomegaly and no splenomegaly Auscultation: normal bowel sounds Skin General skin exam: no rashes or lesions noted and dry skin Neuro General: oriented to person, oriented to place and oriented to time Cranial nerves: Yes Equal, round and reactive pupils present Speech: No Abnormal speech present Gait exam (Neuro): Normal gait present Motor exam (neuro): no tremor noted Extrem Right upper extremity: full ROM Left upper extremity: full ROM Right lower extremity: full ROM; no edema Left lower extremity: full ROM; no edema Psych Mental Status: mental status grossly normal Speech and movement: Normal speech and movement present Affect: normal affect Attitude: cooperative Thought process: Normal thought process present Results AMB Hemoglobin A1c AMB Hemoglobin A1c 6.8 % Last Edit by KAYLEIGH Link on 12/20/22 09:04 Results Reviewed Results Reviewed: Laboratory Last Values Hgb A1c (Clinic) 6.8 % (4.0-6.0) H 12/20/22 08:44 Assessment and Plan Assessment & Plan (1) DMII (diabetes mellitus, type 2): Code(s): E11.9 - Type 2 diabetes mellitus without complications Qualifiers: Diabetes mellitus complication status: without complication 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 Goal A1c is to remain below 7.0. (2) CAD (coronary artery disease): Code(s): I25.10 - Atherosclerotic heart disease of [place] coronary artery without angina pectoris Qualifiers: Associated angina: without angina Coronary Disease-Associated Artery/Lesion type: [place] artery [place] vs. transplanted heart: [place] heart Qualified Code(s): I25.10 - Atherosclerotic heart disease of [place] coronary artery without angina pectoris Plan: Patient has been asymptomatic, most recent lipid panel showing excellent control over his total cholesterol and LDL. Goal LDL to remain below 70 (3) HTN (hypertension): Code(s): I10 - Essential (primary) hypertension Qualifiers: Hypertension type: essential hypertension Qualified Code(s): I10 - Essential (primary) hypertension Plan: Patient's blood pressure acceptable today in office. Will continue current antihypertensive medication with goal blood pressure to remain below 140/90 (4) GERD (gastroesophageal reflux disease): Code(s): K21.9 - Gastro-esophageal reflux disease without esophagitis Qualifiers: Esophagitis presence: without esophagitis Qualified Code(s): K21.9 - Gastro-esophageal reflux disease without esophagitis Plan: Patient reports recently having intermittent episodes of GERD like symptoms to which he takes Tums and relieves his symptoms. Also having some lower abdominal pain and some loose stools at times. Unsure if this is diet related. Noted slight anemia on most recent labs which raises concern for peptic ulcer disease. Will start PPI therapy and refer to GI for possible endoscopy. (5) Anemia: Code(s): D64.9 - Anemia, unspecified Qualifiers: Anemia type: iron deficiency Iron deficiency anemia type: chronic blood loss Qualified Code(s): D50.0 - Iron deficiency anemia secondary to blood loss (chronic) (6) Short-term memory loss: Code(s): R41.3 - Other amnesia (7) Concentration deficit: Code(s): R41.840 - Attention and concentration deficit Plan: As above patient has noted some concentration deficits that have been hinder to his lifestyle. He reports his family has noted his concentration issues and impulsivity. Also having some memory impairment in the short-term. Will send for MRI of brain to evaluate for any intracranial pathology that could explain his symptoms. Orders: Orders IRON PROFILE Today D50.0 - Iron deficiency anemia secondary to blood loss (chronic), D50.9 - Iron deficiency anemia, unspecified Complete Blood Count no Diff Today D50.0 - Iron deficiency anemia secondary to blood loss (chronic) Lipid Panel Today I25.10 - Atherosclerotic heart disease of [place] coronary artery without angina pectoris Comprehensive [place]. Panel Fast Today I25.10 - Atherosclerotic heart disease of [place] coronary artery without angina pectoris Prostate Specific Antigen Scr Today I25.10 - Atherosclerotic heart disease of [place] coronary artery without angina pectoris, Z12.5 - Encounter for screening for malignant neoplasm of prostate MR head/brain wo con Today R41.3 - Other amnesia, R41.840 - Attention and concentration deficit AMB Hemoglobin A1c Today E11.9 - Type 2 diabetes mellitus without complications Referrals Gastroenterology Referral D64.9 - Anemia, unspecified, K21.9 - Gastro- esophageal reflux disease without esophagitis Neurology Referral R41.3 - Other amnesia, R41.840 - Attention and concentration deficit Medications: New omeprazole 20 mg PO DAILY 90 days 90 caps 1RF D50.0 - Iron deficiency anemia secondary to blood loss (chronic), K21.9 - Gastro-esophageal reflux disease without esophagitis Refilled tadalafil 5 mg PO DAILY 90 tabs 1RF N52.9 - Male erectile dysfunction, unsp ecified Coding Level of Care Code Est Pt Level 4 (38159) Diagnoses DMII (diabetes mellitus, type 2) E11.9 Diabetes mellitus complication status: without complication Diabetes mellitus [facility] insulin use: without [facility] use CAD (coronary artery disease) I25.10 Associated angina: without angina Coronary Disease-Associated Artery/Lesion type: [place] artery [place] vs. transplanted heart: [place] heart HTN (hypertension) I10 Hypertension type: essential hypertension GERD (gastroesophageal reflux disease) K21.9 Esophagitis presence: without esophagitis Anemia D50.0 Anemia type: iron deficiency Iron deficiency anemia type: chronic blood loss Short-term memory loss R41.3 Concentration deficit R41.840
[2022-12-20 08:43] VITALS: BP 138/72; PULSE 59; O2SAT 98; BMI 24.4
== END 2022-12-20 09:35 | disposition home or self-care (01) ==
PROVIDERS: PCP Internal Medicine; Visit Provider Physician Assistant
DX: E11.9 Type 2 diabetes mellitus without complications (principal); I25.10 Atherosclerotic heart disease of native coronary artery without angina pectoris; I10 Essential (primary) hypertension; K21.9 Gastro-esophageal reflux disease without esophagitis; D50.0 Iron deficiency anemia secondary to blood loss (chronic); R41.3 Other amnesia; R41.840 Attention and concentration deficit
CPT/HCPCS: 83036; 99214

== ENCOUNTER 2023-01-23 12:51 | Outpatient (REF) | payer MEDICARE, SELFPAY ==
[2023-01-23 13:30] LABS: Hematocrit 47.3 % (42.0-52.0); Hemoglobin 15.3 g/dl (14.0-18.0); Mean Corpuscular HGB Conc 32.3 g/dl (31.0-36.0); Mean Corpuscular Volume 95.7 fL (80.0-98.0); Mean Platelet Volume 10.7 fL (9.4-12.4); Platelet Count 247 X10*3/uL (160-400); Red Blood Count 4.94 X10*6/uL (4.60-5.80); Red Cell Distribution Width 12.2 % (11.0-16.0); White Blood Count 10.7 X10*3/uL (4.8-10.8)
[2023-01-23 13:53] LABS: Alanine Aminotransferase 27 U/L (0-40); Albumin Level 4.3 g/dL (3.5-5.0); Alkaline Phosphatase 57 U/L (39-117); Anion Gap 13 (12-20); Aspartate Amino Transferase 21 U/L (5-37); Bilirubin Total 0.4 mg/dL (0.0-1.0); Blood Urea Nitrogen 19 mg/dL (9-16); Calcium 9.9 mg/dL (8.4-10.2); Carbon Dioxide 25 mmol/L (22-29); Chloride 106 mmol/L (96-108); Cholesterol 134 mg/dL (<200); Estimated Glomerular Filt Rate > 60; Glucose Fasting 93 mg/dL (60-99); HDL Cholesterol 43 mg/dL (>40); Iron 87 mcg/dL (45-160); LDL Cholesterol Calculated 61 mg/dL (<100); Percent Iron Saturation 28 % (15-50); Potassium 4.6 mmol/L (3.3-5.1); Sodium 139 mmol/L (135-145); Total Iron Binding Capacity 313 mcg/dL (228-428); Triglycerides 152 mg/dL (<150); Unsaturated Iron Binding 226 ug/dL
[2023-01-23 14:06] LABS: Prostate Specific Antigen Scr 4.32 ng/mL (<0.05-4.0)
== END 2023-01-23 12:52 | disposition home or self-care (01) ==
LOC: HO.LAB 12:51
PROVIDERS: PCP Physician Assistant; Visit Provider Physician Assistant
DX: Z12.5 Encounter for screening for malignant neoplasm of prostate (principal); D50.0 Iron deficiency anemia secondary to blood loss (chronic); I25.10 Atherosclerotic heart disease of native coronary artery without angina pectoris
CPT/HCPCS: 36415; 80053; 80061; 83540; 84153; 85027

== ENCOUNTER 2023-02-03 10:43 | Outpatient (REF) | payer MEDICARE, SELFPAY ==
[2023-02-03 12:31] LABS: PSA,Total (Free>4and<10) 4.74 ng/mL (0.00-4.00)
[2023-02-05 11:13] LABS: Free Prostate Spec Ag 1.5 ng/mL; Percent Free Prostate Spec Ag 35 % (calc) (>25); Prostate Specific Ag Total 4.3 ng/mL (< OR = 4.0)
== END 2023-02-03 10:44 | disposition home or self-care (01) ==
LOC: HO.LAB 10:43
PROVIDERS: PCP Physician Assistant; Visit Provider Nurse Practitioner Family
DX: Z12.5 Encounter for screening for malignant neoplasm of prostate (principal); R97.20 Elevated prostate specific antigen [PSA]
CPT/HCPCS: 36415; 84153; 84154

== ENCOUNTER 2023-02-10 08:01 | Outpatient (REF) | payer MEDICARE, SELFPAY ==
--- NOTE | ~2023-02-10 | MR_ITS ---
EXAMINATION: MR BRAIN WITHOUT CONTRAST CLINICAL INFORMATION: Attention and concentration deficit COMPARISON: None TECHNIQUE: Multiplanar multisequence MR imaging of the brain was obtained without intravenous contrast. FINDINGS: There is no acute infarct on diffusion-weighted imaging. There is a 6 mm focus of susceptibility artifact and T2 hypointense signal in the anterior mesial left temporal lobe, which may reflect sequela of microhemorrhage versus a small cavernoma. No extra-axial collection or mass effect/herniation. Scattered periventricular and deep white matter T2 FLAIR hyperintensities consistent with mild underlying microangiopathy. No hydrocephalus. The ventricles are normal in morphology and size. The major flow voids at the skull base are preserved. The midline structures are normal. The cerebellar tonsils are normally positioned. The craniocervical junction is normal. Marrow signal is within normal limits. The visualized soft tissues are without significant abnormality. Small left maxillary sinus retention cyst. Mild ethmoid sinus mucosal thickening. MR/MR head/brain wo con IMPRESSION: 1. No acute intracranial abnormality. 2. Mild chronic white matter microangiopathy. 3. 6 mm focus of susceptibility artifact in the mesial left temporal lobe may reflect sequela of microhemorrhage versus a small cavernoma.
== END 2023-02-10 08:02 | disposition home or self-care (01) ==
LOC: HO.MRI 08:01
PROVIDERS: PCP Physician Assistant; Visit Provider Physician Assistant
DX: R41.840 Attention and concentration deficit (principal); R41.3 Other amnesia
CPT/HCPCS: 70551

== ENCOUNTER 2023-05-16 08:22 | Outpatient (AMB) | payer MEDICARE, SELFPAY ==
--- NOTE | 2023-05-16 08:41 | MHC.OFFVIS ---
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 Intake Note: Pt presents tothe office for new pt evaluation for attention and concentration deficit. 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 Allergies clopidogrel [Plavix] Allergy (Intermediate, Verified 05/16/23 08:44) extremity swelling, itch shellfish derived Allergy (Intermediate, Verified 05/16/23 08:44) Swelling simvastatin Allergy (Intermediate, Verified 05/16/23 08:44) Muscle Pain ticlopidine [From Ticlid] Allergy (Intermediate, Verified 05/16/23 08:44) Extremity swelling, itch atorvastatin Adverse Reaction (Intermediate, Verified 05/16/23 08:44) muscle weakness, other propoxyphene [From Darvon] Adverse Reaction (Mild, Verified 05/16/23 08:44) Headache, Migraine Medication List - Last Reconciled 05/16/23 by Regina Stratton MD albuterol sulfate 90 mcg/actuation 2 puffs inhalation Q6H aspirin 81 mg PO DAILY carvedilol 9.375 mg (1.5 x 6.25 mg) PO BID codeine-guaifenesin 10-100 mg/5 mL 5 mL PO Q6H PRN 5 days diclofenac sodium 1% (Arthritis Pain (diclofenac)) 2 grams topical QID PRN 10 days ezetimibe 10 mg PO DAILY latanoprost 0.005% 1 drp ophthalmic (eye) QPM lisinopril 2.5 mg PO DAILY metformin 1,000 mg PO BID 90 days nitroglycerin 0.4 mg sublingual Q5M PRN omeprazole 20 mg PO DAILY 90 days rosuvastatin 10 mg PO DAILY sitagliptin phosphate (Januvia) 100 mg PO DAILY 90 days tadalafil 10 mg PO DAILY HPI HPI Comments History of Present Illness Details 72y/o male comes for evaluation of short term memory issues.He had COVID last year and since then he has noticed short term memory issues. He has trouble recalling thoughts, conversations etc.He also feels he frequently interjects conversations so he would not forget what he was going to say. He denies misplacing things or forgetting medications. He always had problems with names. He is independent in all his ADLS.He usually has a routine of prayer and meditation in the morning. But he has realized he cannot focus and sit through , he is distracted in 5 minutes. His sleep is good. He denies any head injury . He denies depression and anxiety. [facility] Medical History (Updated 05/16/23 @ 09:35 by Regina Stratton MD) Mild cognitive disorder Back pain Diabetes Asthma Elevated cholesterol Myocardial infarction CAD (coronary artery disease) HTN (hypertension) Surgical History H/O cataract extraction H/O colonoscopy Hx of heart artery stent H/O arthroscopy Family History Father Medical history unknown Mother COPD (chronic obstructive pulmonary disease) Myocardial infarction CAD (coronary artery disease) Social History Housing: House Alcohol intake: current Alcohol intake frequency: holidays/special occasions only Patient Tobacco Use Status: Former Tobacco user (33 years ago) Quit Date: 1985 Tobacco use type: Cigarette Cigarette Packs Per Day: 0.5 e-Cigarette/Vaping Use: Never Used Second Hand Smoke Exposure: No service: Yes Current occupational status: retired Cognitive needs: No Hearing needs: No Vision needs: No Physical Exam Vital Signs: Last Vital Signs Pulse 64 05/16/23 08:44 Resp 15 05/16/23 08:44 BP 132/78 05/16/23 08:44 Pulse Ox 98 05/16/23 08:44 Oxygen Delivery Method Room Air 05/16/23 08:44 BMI result Body Mass Index 25.3 Const General: cooperative, healthy appearing, comfortable and no acute distress Nutritional Appearance: average body habitus Orientation/consciousness: patient oriented x3 Eyes Pupils: Equal, round and reactive pupils present Neuro General: patient oriented x3, gait normal, tone normal and no focal motor deficits Cranial nerves: Yes Facial sensation intact/muscles of mastication intact, Yes Equal, round and reactive pupils present, Yes Bilaterally intact EOM present, Yes Nystagmus not present, Yes Normal facial strength present, Yes Midline tongue present and Yes Symmetric palate elevation present Cognition (Neuro): normal cognition Gait exam (Neuro): Normal gait present Motor exam (neuro): 5/5 motor strength present throughout and Normal motor muscle tone present throughout Deep tendon reflexes (DTR's): Right triceps reflex intensity grade: 1+, Left triceps reflex intensity grade: 1+, Rt Biceps (C5, C6): 1+, Left biceps reflex intensity grade: 1+, Right brachioradialis reflex intensity grade: 1+, Left brachioradialis reflex intensity grade: 1+, Right patellar reflex intensity grade: 1+ and Left patellar reflex intensity grade: 1+ Coordination: [id number] test normal Orientation What is the (year) (season) (date) (day) (month)?: year, season, date, day and month Where are we (state) (county) (town or city) (hospital) (floor)?: state, county, town or city, hospital/clinic and floor Registration Name of 3 unrelated objects clearly and slowly, then ask patient to repeat all 3 of them. (1st repeat determines score. Make sure they can repeat all three): object 1, object 2 and object 3 Attention & Calculation (CHOOSE ONE) Spell WORLD backwards (DLROW): 5 letters Recall Ask patient to repeat the 3 items from question #3.: object 1 Language Show patient a wristwatch & ask what it is. Repeat for pencil.: watch and pencil Ask the patient to repeat the phrase 'No ifs, ands, or buts' after you.: correct Ask the patient to 'take a piece of paper with their right hand' 'fold paper in half' 'place paper on floor': take paper in right hand, fold paper in half and place paper on floor Print the sentence 'CLOSE YOUR EYES' on a piece. If patient actually closes eyes then score.: followed written direction Give patient a blank piece of paper & ask to write a sentence. Score if it contains a noun & verb.: sentence contains subject and verb Ask patient to copy figure of intersecting pentagons exactly. Score if all 10 angles & 2 intersects are included.: all 10 angles present & 2 are intersected Score Score: 28 Assessment & Plan Assessment & Plan (1) Mild cognitive disorder: Comment: age related ? poor attention ? anxiety Code(s): F09 - Unspecified mental disorder due to known physiological condition Plan He did well on MMSE. I reviewed his MRI- showed mild white matter changes and an incidental cavernoma I will check his TSH B12 Vit D levels Discussed about various mind games and i will refer him for cognitive therapy to improve attention. Orders: Orders TSH reflex Free T4 Today R41.3 - Other amnesia Vitamin B12 and Folate Today R41.3 - Other amnesia Vitamin D 25-OH (D2 and D3) Today R41.3 - Other amnesia Erythrocyte Sedimentation Rate Today R41.3 - Other amnesia Referrals Speech and Hearing Referral R41.3 - Other amnesia Coding Level of Care Code New Pt Level 4 (91335) Diagnoses Mild cognitive disorder F09
[2023-05-16 08:44] VITALS: BP 132/78; PULSE 64; RESP 15; O2SAT 98; BMI 25.3
== END 2023-05-16 09:24 | disposition home or self-care (01) ==
PROVIDERS: PCP Internal Medicine; Visit Provider Psychiatry & Neurology Neurology
DX: G31.84 Mild cognitive impairment of uncertain or unknown etiology (principal)
CPT/HCPCS: 99204

== ENCOUNTER 2023-05-16 08:22 | Outpatient (REF) | payer MEDICARE, SELFPAY ==
[2023-05-16 11:33] LABS: Erythrocyte Sedimentation Rate 7 MM/HR (0-15)
[2023-05-16 11:40] LABS: TSH reflex Free T4 1.52 uIU/mL (0.32-4.0)
[2023-05-16 12:17] LABS: Vitamin B12 207 pg/mL (200-900)
[2023-05-16 13:30] LABS: Folate 10.5 ng/mL (> or = 4.0)
[2023-05-20 12:13] LABS: Vitamin D 25-OH, D2 <4 ng/mL; Vitamin D 25-OH, D3 15 ng/mL; Vitamin D 25-OH, Total 15 ng/mL (30-100)
== END 2023-05-16 08:23 | disposition home or self-care (01) ==
LOC: HO.LAB 08:22
PROVIDERS: PCP Internal Medicine; Visit Provider Psychiatry & Neurology Neurology
DX: R41.3 Other amnesia (principal); F09 Unspecified mental disorder due to known physiological condition
CPT/HCPCS: 36415; 82306; 82607; 82746; 84443; 85652; 99202

== ENCOUNTER 2023-05-24 13:58 | Outpatient (REF) | payer MEDICARE, SELFPAY ==
[2023-05-25 12:48] LABS: Gliadin Deamidated IgA Ab <1.0 U/mL; Gliadin Deamidated IgG Ab <1.0 U/mL; Immunoglobulin A 210 mg/dL (70-320); Transglutaminase Ab IgG <1.0 U/mL; Transglutaminase IgA <1.0 U/mL
[2023-05-27 12:38] LABS: Endomysial IgA Antibody Negative (Negative)
== END 2023-05-24 13:59 | disposition home or self-care (01) ==
LOC: HO.LAB 13:58
PROVIDERS: PCP Physician Assistant; Visit Provider Internal Medicine
DX: R19.4 Change in bowel habit (principal); R19.7 Diarrhea, unspecified
CPT/HCPCS: 36415; 82784; 86231; 86258; 86364

== ENCOUNTER 2023-05-30 06:23 | Day surgery (SDC) | payer MEDICARE, SELFPAY ==
[2023-05-30 06:41] VITALS: BMI 25.0
--- NOTE | 2023-05-30 07:20 | HO.ANESPROP2 ---
Documented by User: Evy Gallardo NP 05/26/23 09:34 HPI - Anesthesia Eval Consult details Narrative: 72yo M for Upper Endoscopy Anesthesia Pre-Procedure Meds Is the patient on any of the following meds?: Any other SGL-1 drugs or drugs that delay gastric emptying (Januvia) [facility] Active Problems Active Problems: All Active Problems (Updated 05/16/23 @ 09:35 by Regina Stratton MD) Mild cognitive disorder (Acute) Elevated PSA (Acute) Concentration deficit (Acute) Short-term memory loss (Acute) Anemia (Acute) GERD (gastroesophageal reflux disease) (Acute) Post-viral cough syndrome (Acute) SOB (shortness of breath) (Acute) BPPV (benign paroxysmal positional vertigo) (Acute) Exposure to COVID-19 virus (Acute) Back pain (Acute) Pre-op evaluation (Acute) Splenic infarct (Chronic) Cough (Acute) Loose stools (Acute) LLQ abdominal pain (Acute) Annual physical exam (Acute) Erectile dysfunction (Acute) Tick bite (Acute) HTN (hypertension) (Acute) DMII (diabetes mellitus, type 2) (Acute) CAD (coronary artery disease) (Acute) Past Medical History Medical History Mild cognitive disorder Back pain Diabetes Asthma Elevated cholesterol Myocardial infarction CAD (coronary artery disease) HTN (hypertension) Family History Family History Father Medical history unknown Mother COPD (chronic obstructive pulmonary disease) Myocardial infarction CAD (coronary artery disease) Surgical History Surgical History H/O foot surgery H/O cataract extraction H/O colonoscopy Hx of heart artery stent H/O arthroscopy Social History Social History Housing: House Alcohol intake: current Alcohol intake frequency: holidays/special occasions only Patient Tobacco Use Status: Former Tobacco user Quit Date: 1989 Tobacco use type: Cigarette Cigarette Packs Per Day: 0.5 Smoked in Last 30 Days: No e-Cigarette/Vaping Use: Never Used Second Hand Smoke Exposure: No Use of substances other than those prescribed or required for medical reasons: No Are you DNR?: No Advance Directives: No Advance Directives Information Provided: Yes service: Yes Current occupational status: retired Cognitive needs: No Hearing needs: No Vision needs: No Meds Allergies Allergy/AdvReac Type Severity Reaction Status Date / Time clopidogrel [Plavix] Allergy Intermediate extremity Verified 05/30/23 06:40 swelling, itch shellfish derived Allergy Intermediate Swelling Verified 05/30/23 06:40 simvastatin Allergy Intermediate Muscle Pain Verified 05/30/23 06:40 ticlopidine [From Ticlid] Allergy Intermediate Extremity Verified 05/30/23 06:40 swelling, itch atorvastatin AdvReac Intermediate muscle Verified 05/30/23 06:40 weakness, other propoxyphene [From Darvon] AdvReac Mild Headache, Verified 05/30/23 06:40 Migraine Home Medications Medication Instructions Recorded Confirmed Last Taken Type aspirin 81 mg tablet,delayed 81 mg PO DAILY 03/30/20 05/30/23 05/27/23 History release latanoprost 0.005 % eye drops 1 drp ophthalmic (eye) QPM 03/30/20 05/30/23 Unknown History nitroglycerin 0.4 mg sublingual 0.4 mg sublingual Q5M PRN Chest 03/30/20 05/30/23 Unknown History tablet Pain Exam Pertinent Lab Results Pertinent Lab Results: Laboratory Tests 01/23/23 13:07 WBC 10.7 Hgb 15.3 Hct 47.3 Plt Count 247 Sodium 139 Potassium 4.6 D Chloride 106 Carbon Dioxide 25 BUN 19 H Creatinine 1.11 Assessment and Plan Assessment Anesthesia Assessment: Chart Reviewed Documented by User: Elissa Hood DO 05/30/23 07:32 HPI - Anesthesia Eval Anesthesia Pre-Procedure Meds If Yes to any meds - educate patient: Pt education - increased risk of aspiration (last dose 05/27/23) PMFSH Past Medical History Medical History Mild cognitive disorder Back pain Diabetes Asthma Elevated cholesterol Myocardial infarction CAD (coronary artery disease) HTN (hypertension) Family History Family History Father Medical history unknown Mother COPD (chronic obstructive pulmonary disease) Myocardial infarction CAD (coronary artery disease) Family history of problems with anesthesia: No Surgical History Surgical History H/O foot surgery H/O cataract extraction H/O colonoscopy Hx of heart artery stent H/O arthroscopy History of Problems with Anesthesia: No Social History Social History Housing: House Alcohol intake: current Alcohol intake frequency: holidays/special occasions only Patient Tobacco Use Status: Former Tobacco user Quit Date: 1989 Tobacco use type: Cigarette Cigarette Packs Per Day: 0.5 Smoked in Last 30 Days: No e-Cigarette/Vaping Use: Never Used Second Hand Smoke Exposure: No Use of substances other than those prescribed or required for medical reasons: No Are you DNR?: No Advance Directives: No Advance Directives Information Provided: Yes service: Yes Current occupational status: retired Cognitive needs: No Hearing needs: No Vision needs: No Meds Allergies Allergy/AdvReac Type Severity Reaction Status Date / Time clopidogrel [Plavix] Allergy Intermediate extremity Verified 05/30/23 06:40 swelling, itch shellfish derived Allergy Intermediate Swelling Verified 05/30/23 06:40 simvastatin Allergy Intermediate Muscle Pain Verified 05/30/23 06:40 ticlopidine [From Ticlid] Allergy Intermediate Extremity Verified 05/30/23 06:40 swelling, itch atorvastatin AdvReac Intermediate muscle Verified 05/30/23 06:40 weakness, other propoxyphene [From Darvon] AdvReac Mild Headache, Verified 05/30/23 06:40 Migraine Home Medications Medication Instructions Recorded Confirmed Last Taken Type aspirin 81 mg tablet,delayed 81 mg PO DAILY 03/30/20 05/30/23 05/27/23 History release latanoprost 0.005 % eye drops 1 drp ophthalmic (eye) QPM 03/30/20 05/30/23 Unknown History nitroglycerin 0.4 mg sublingual 0.4 mg sublingual Q5M PRN Chest 03/30/20 05/30/23 Unknown History tablet Pain Exam Exam Date and Time: May 30, 2023 0720 Height,Weight and Vital Signs: Height 5 ft 7 in Weight 72.393 kg Vital Signs Temperature 98.0 F 05/30/23 07:24 Pulse Rate 77 05/30/23 07:24 Respiratory Rate 16 05/30/23 07:24 Blood Pressure 141/76 H 05/30/23 07:24 Pulse Oximetry 98 05/30/23 07:24 Oxygen Delivery Method Room Air 05/30/23 07:24 Temperature 98.0 F 05/30/23 07:24 Pulse Rate 77 05/30/23 07:24 Respiratory Rate 16 05/30/23 07:24 Blood Pressure 141/76 H 05/30/23 07:24 Pulse Oximetry 98 05/30/23 07:24 Oxygen Delivery Method Room Air 05/30/23 07:24 Airway Mallampati Class: I TM Dist: >3cm Neck ROM: Full Loose/Missing/Broken Teeth: No Heart: S1S2 Lungs: CTAB Assessment and Plan Final Anesthetic Review Family History of Problems with Anesthesia: No History of Problems with Anesthesia: No NPO: Yes ASA Class: III Final Preanesthetic Review: No Changes in Pt Med Stat, Meds/Allgs Chart Reviewed, Consent Obtained/Reviewed and Anes Risks/Benef Reviewed Patient Risk: Intermediate Procedure Risk: Low Anesthetic Plan Anesthetic Plan: GA (elective intubation - patient had full meal last night and is on Januvia) and Agree w/ Assess. and Plan Disposition: Standard PACU
[2023-05-30 07:24] VITALS: BP 141/76; PULSE 77; RESP 16; TEMP 36.7; O2SAT 98
[2023-05-30] MEDS: Lactated Ringers 1,000 ML 100 ML IVCONT (07:26)
[2023-05-30 08:03] VITALS: BP 105/51; PULSE 81; RESP 16; TEMP 36.2; O2SAT 98
[2023-05-30 08:06] LABS: Glucose, Whole Blood 146 mg/dL (60-115)
[2023-05-30 08:08] VITALS: BP 105/61; PULSE 74; RESP 16; O2SAT 98
--- NOTE | 2023-05-30 08:08 | P.BOP_ITS ---
Brief Operative Note Date of Service: 05/30/23 Pre-op diagnosis: GERD, Abdominal pain Post-op diagnosis: other (Esophagitis, R/O Greenwood's, Hiatal hernia) Procedure: EGD with biopsies Surgeon: Calixto Goncalves MD Anesthesia: GETA Was an Beauty [employer] used for this Procedure?: No Estimated blood loss (mL): 2.0 Pathology: other (A. Descending duodenum B. Gastric antrum C. Esophagus 34-35cm) Condition: stable Disposition: PACU
[2023-05-30 08:13] VITALS: BP 102/54; PULSE 78; RESP 16; O2SAT 96
[2023-05-30 08:18] VITALS: BP 114/55; PULSE 78; RESP 16; O2SAT 96
[2023-05-30 08:33] VITALS: BP 114/53; PULSE 67; RESP 18; TEMP 36.5; O2SAT 97
--- NOTE | 2023-05-30 09:06 | OP_ITS ---
DATE OF SERVICE: 05/30/2023 SURGEON: Calixto Goncalves MD INDICATIONS: The patient presents for evaluation of gastroesophageal reflux and abdominal discomfort. Full consent was obtained from him for this, including risks of bleeding and perforation. PREOPERATIVE DIAGNOSIS: POSTOPERATIVE DIAGNOSIS: Gastroesophageal reflux and abdominal discomfort. Erosive esophagitis, rule out Greenwood's esophagus, hiatal hernia, rule out celiac disease, minimal gastric retention. PROCEDURE PERFORMED: Esophagogastroduodenoscopy with biopsies. ESTIMATED BLOOD LOSS: COMPLICATIONS: ANESTHESIA: General anesthesia. ASSISTANTS: SPECIMENS: PREOPERATIVE DIAGNOSES: Gastroesophageal reflux and abdominal discomfort. DESCRIPTION OF PROCEDURE: The patient was placed in the supine position. The Olympus video gastroscope was passed in the posterior oropharynx and upper esophagus under direct vision. The scope was passed slowly to the distal esophagus. The gastroesophageal junction appeared at 35 cm. Extending from this to 34 cm were 2 segments of possible Greenwood's mucosa with some overlying ulceration. There was no evidence of any lesions. There was no stricture. The scope entered the stomach. There was a small to moderate-sized hiatal hernia. The scope was advanced to the pylorus and the duodenum was cannulated to the descending portion. The duodenum including the bulb appeared normal without mass or ulceration. Biopsies were obtained in the duodenum. The scope was withdrawn back to the stomach. There was a small amount of retained old food but peristalsis appeared normal. The gastric antrum and body appeared normal. Biopsies were obtained from the gastric antrum. The scope was retroflexed visualizing the proximal stomach carefully, which appeared normal, without any sign of mass, ulceration, nor any food. The scope was straightened and withdrawn back to the esophagus. Biopsies were obtained between 34 and 35 cm. Proximal to 34 cm, the esophageal mucosa appeared normal. The scope was withdrawn from the patient. He tolerated the procedure well and was returned to the recovery area in stable condition. IMPRESSION: 1. Erosive esophagitis, rule out Greenwood's esophagus. 2. Hiatal hernia. 3. Minimal gastric retention. 4. Rule out celiac disease. 5. Rule out Helicobacter pylori. PLAN: The results of the biopsies will be checked. He had been using omeprazole 20 mg daily but did stop that recently. I shall switch him to omeprazole 40 mg daily. He has been advised to continue that electronic wirer. He was advised not to use any NSAIDs, but he will resume his daily 81 mg aspirin tomorrow. He was advised to not eat for several hours before bedtime. Given the ulcerations, I will plan to repeat the endoscopy after he returns from his trip in the early spring. This has been discussed with his . MD DERIC Infante/MARION / [id number] MTDD
== END 2023-05-30 09:16 | disposition home or self-care (01) ==
PROVIDERS: PCP Internal Medicine; Visit Provider Internal Medicine
PROC: 0DJ08ZZ Inspection of Upper Intestinal Tract, Via Natural or Artificial Opening Endoscopic (ICD-10-PCS; CPT 43235; principal; 2023-05-30 07:30)
DX: K21.9 Gastro-esophageal reflux disease without esophagitis (principal); K20.80 Other esophagitis without bleeding; K31.89 Other diseases of stomach and duodenum; K44.9 Diaphragmatic hernia without obstruction or gangrene; D64.9 Anemia, unspecified; I25.2 Old myocardial infarction; I25.10 Atherosclerotic heart disease of native coronary artery without angina pectoris; Z95.5 Presence of coronary angioplasty implant and graft; I10 Essential (primary) hypertension; E78.5 Hyperlipidemia, unspecified; E11.9 Type 2 diabetes mellitus without complications; Z79.84 Long term (current) use of oral hypoglycemic drugs; Z79.899 Other long term (current) drug therapy; Z79.82 Long term (current) use of aspirin; Z86.16 Personal history of COVID-19; Z87.891 Personal history of nicotine dependence
CPT/HCPCS: 43239; 82947; 88305; 88342; J0330; J1100; J2405; J2704

== ENCOUNTER 2023-06-01 09:17 | Outpatient (AMB) | payer MEDICARE, SELFPAY ==
--- NOTE | 2023-06-01 09:18 | MHC.PC.OV ---
Vital Signs 06/01/23 09:21 Height 5 ft 7 in Weight 156 lb 8 oz BMI 24.5 BP 120/62 Blood Pressure Location Lt brachial Position Sitting Respiration 17 Pulse 80 Pulse Source Palpation Intake Visit Reasons: f/u CAD/ DMII/ anemia Intake Note: Patient is here today for a physical. 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 Accompanied by: Self / Same As Patient Allergies clopidogrel [Plavix] Allergy (Intermediate, Verified 06/01/23 09:47) extremity swelling, itch shellfish derived Allergy (Intermediate, Verified 06/01/23 09:47) Swelling simvastatin Allergy (Intermediate, Verified 06/01/23 09:47) Muscle Pain ticlopidine [From Ticlid] Allergy (Intermediate, Verified 06/01/23 09:47) Extremity swelling, itch atorvastatin Adverse Reaction (Intermediate, Verified 06/01/23 09:47) muscle weakness, other propoxyphene [From Darvon] Adverse Reaction (Mild, Verified 06/01/23 09:47) Headache, Migraine Medication List - Last Reconciled 06/01/23 by Lamont Currie PA-C albuterol sulfate 90 mcg/actuation 2 puffs inhalation Q6H aspirin 81 mg PO DAILY carvedilol 9.375 mg (1.5 x 6.25 mg) PO BID diclofenac sodium 1% (Arthritis Pain (diclofenac)) 2 grams topical QID PRN 10 days ezetimibe 10 mg PO DAILY latanoprost 0.005% 1 drp ophthalmic (eye) QPM lisinopril 2.5 mg PO DAILY metformin 1,000 mg PO BID 90 days nitroglycerin 0.4 mg sublingual Q5M PRN omeprazole 20 mg PO DAILY 90 days rosuvastatin 10 mg PO DAILY sitagliptin phosphate (Januvia) 100 mg PO DAILY 90 days tadalafil 10 mg PO DAILY Tobacco use date assessed: 06/01/23 Fall risk assessment: No Falls in past year Last assessed Fall Risk: 06/01/23 Dental Screening Dental Screen Date: 06/01/23 Did you have a dental visit in the last 12 months?: Yes Did you have a dental problem in the last 6 months where you did not have access to dental care?: No Was dental information given to patient?: Patient has dentist HPI f/u CAD/ DMII/ anemia HPI Details Patient is a 72-year-old male here today for a f/u visit. Patient has a past medical history significant for type 2 diabetes, hypertension, hyperlipidemia, coronary artery disease, asthma, splenic infarct . . Concerns--> continues to have some memory deficit in the short-term. Has follow-up with Neurology about this and no future concerns. ? .. ? Type 2 diabetes:. Patient's type 2 diabetes has been slightly suboptimally controlled. Today's A1c is 7.2. Dietary indiscretion due to the holidays. Will get up back on track with his diet.. ? .. ? Hypertension: Patient reports blood pressures have been stable at home. Denies any headaches, chest pain, shortness of breath. .. CAD: Lipid panel has been acceptable on current dose of statin therapy. He otherwise denies any chest discomfort, dizziness, shortness of breath. 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 .. Vaccine: UTD with Tdap, UTD with PCV, UTD with COVID pfizer. Up-to-date with RSV and shingles vaccines Laboratory Tests 12/20/22 06/01/23 08:44 09:37 Hgb A1c (Clinic) 6.8 H 7.2 H PFSH Medical History Mild cognitive disorder Back pain Diabetes Asthma Elevated cholesterol Myocardial infarction CAD (coronary artery disease) HTN (hypertension) Surgical History H/O foot surgery H/O cataract extraction H/O colonoscopy Hx of heart artery stent H/O arthroscopy Family History Father Medical history unknown Mother COPD (chronic obstructive pulmonary disease) Myocardial infarction CAD (coronary artery disease) Social History Housing: House Alcohol intake: current Alcohol intake frequency: holidays/special occasions only Patient Tobacco Use Status: Former Tobacco user Quit Date: 1989 Tobacco use type: Cigarette Cigarette Packs Per Day: 0.5 e-Cigarette/Vaping Use: Never Used Second Hand Smoke Exposure: No service: Yes Current occupational status: retired Cognitive needs: No Hearing needs: No Vision needs: No Questionnaire PHQ-9 Over the last 2 weeks, how often have you been bothered by any of the following problems? 1. Little interest or pleasure in doing things: not at all 2. Feeling down, depressed, or hopeless: not at all 3. Trouble falling or staying asleep, or sleeping too much: not at all 4. Feeling tired or having little energy: not at all 5. Poor appetite or overeating: not at all 6. Feeling bad about yourself - or that you are a failure or have let yourself or your family down: not at all 7. Trouble concentrating on things, such as reading the newspaper or watching television: not at all 8. Moving or speaking so slowly that other people could have noticed. Or the opposite - being so fidgety or restless that you have been moving around a lot more than usual: not at all 9. Thoughts that you would be better off or of hurting yourself in some way: not at all Total score: 0 Depression Screening Interpretation: Negative Depression Screening Done: Yes 31697 - PHQ-9 Billing: Yes Source: Developed by Drs. Calixto Gold, Daina Escobar, Jeremie Porras and colleagues, with an educational carri from [employer]. Thrive Questionnaire Date Thrive assessed: 06/01/23 I am a: Patient What is your living situation today?: I have a steady place to live Within the past 12 months, did the food you bought not last and you didn't have the money to get more?: Never true Within the past 12 months, did you worry whether your food would run out before you got money to buy more?: Never true Do you have trouble paying for medicines?: No Do you have trouble getting transportation to medical appointments?: No Do you have trouble paying your heating and electricity bill?: No Do you have trouble taking care of your child, family member or friend?: No Do you have trouble with day-to-day activities such as bathing, preparing meals, shopping, managing finances, etc.?: No Are you currently unemployed and looking for a job?: No Are you interested in more education?: No Please select the resources that you would like help with: None Currently or been in a relationship where the following occur: no concerns reported AUDIT C Alcohol Use Questionnaire (AUDIT-C) 1. How often do you have a drink containing alcohol?: Monthly or less 2. How many drinks containing alcohol do you have on a typical day when you are drinking?: 1 or 2 3. How often do you have six or more drinks on one occasion?: Never Total Score: 1 Score Reviewed/Action Taken: Yes AMARILYS-7 AMB Questionnaire AMARILYS-7 Date AMARILYS - 7 assessed: 06/01/23 Feeling nervous, anxious, or on edge: 0 = Not at all Not being able to stop or control worryin = Not at all Worrying too much about different things: 0 = Not at all Trouble relaxin = Not at all Being so restless that it is hard to sit still: 0 = Not at all Becoming easily annoyed or irritable: 0 = Not at all Feeling afraid as if something awful might happen: 0 = Not at all Total AMARILYS-7 score (0-4 normal; 5-9 mild; 10-14 moderate; 15-21 severe): 0 Source: Developed by Drs. Calixto Gold, Daina Escobar, Jeremie Porras and colleagues, with an educational carri from [employer]. AMARILYS-7 Assessment Billing AMARILYS-7 Assessment Tool: AMARILYS-7 Assessment 39753 Review of Systems Const Denies body aches, Denies chills, Denies excessive sweating, Denies fatigue, Denies fever(s) and Denies headache(s) Eyes Denies blurry vision ENT Denies dysphagia, Denies vertigo, Denies dizziness, Denies headache(s), Denies hearing loss and Denies tinnitus Card Denies chest pain, Denies chest pain with activity, Denies syncope, Denies irregular heart rhythm and Denies dyspnea Resp Denies chest congestion, Denies cough, Denies hemoptysis, Denies dyspnea and Denies wheezing GI Denies abdominal pain, Denies melena, Denies hematochezia, Denies coffee ground emesis, Denies dysphagia, Denies diarrhea, Denies nausea and Denies vomiting Denies difficulty urinating, Denies dysuria, Denies urinary frequency, Denies urinary hesitancy and Denies urinary urgency Musc Denies arthralgias, Denies limited range of motion, Denies muscle cramps and Denies muscle weakness Skin/Breast Denies rash and Denies skin ulcer Neuro Denies Abnormal speech present, Denies confusion, Denies vertigo, Denies dizziness, Denies syncope, Denies headache(s), Denies memory loss and Denies seizure-like activity Psych Denies anxiety, Denies confusion, Denies depression, Denies memory loss, Denies panic attacks and Denies paranoia Endo Denies excessive sweating, Denies fatigue, Denies flushing, Denies polydipsia and Denies polyuria Aller/Immun Denies wheezing Physical exam (Primary Care) Vital Signs: Last Vital Signs Pulse 80 06/01/23 09:21 Resp 17 06/01/23 09:21 BP 120/62 06/01/23 09:21 BMI result Body Mass Index 24.5 Tobacco/Smoking Status: Tobacco use Status Tobacco use date assessed 06/01/23 06/01/23 09:37 Patient Tobacco Use Status Former Tobacco user 06/01/23 09:18 Tobacco use type Cigarette 06/01/23 09:18 e-Cigarette/Vaping Use Never Used 06/01/23 09:18 PHQ-9: PHQ-9 Score PHQ-9: Total score 0 06/01/23 09:37 Depression Screening Interpretation: Negative Thrive Assessment: Date of Thrive Assessment Date Thrive assessed 06/01/23 06/01/23 09:37 Currently or been in a relationship where the following occur: no concerns reported Const General: cooperative, comfortable, no acute distress, alert and awake; No confusion Orientation/consciousness: oriented to person, oriented to place, patient oriented x3 and No confusion HENMT Head: Yes normocephalic Ears: external ears normal and TM's normal bilaterally Face and sinus: No sinus tenderness Mouth: Normal oral and palatal mucosa present and tongue normal Teeth and gingiva: dentition normal and gingiva normal Throat: Yes posterior oropharynx normal, Yes tonsils normal and Yes uvula midline Eyes Conjunctivae: conjunctivae normal Sclerae: sclerae normal Pupils: Equal, round and reactive pupils present EOM: EOMs intact bilaterally Direct Ophthalmoscopy: No no photophobia Neck Neck: Yes no lymphadenopathy, No tender and Yes no JVD Thyroid: Thyroid normal Carotids: no bruits Chest Chest palpation & inspection: no tenderness Resp Effort & Inspection: normal respiratory effort, no audible wheezes, not labored and no stridor Auscultation: no crackles, no rales, no rhonchi and no wheezes Cardio Jugular venous distension: no JVD Rate: regular rate, not bradycardic and not tachycardic Rhythm: regular rhythm Bruits: no carotid bruits Peripheral pulses: Peripheral pulses 2+ throughout GI Inspection: Yes normal to inspection, No abdominal wall ecchymosis and No visible herniation Palpation (GI): Soft to palpation, nontender, no guarding, not rigid and No hepatosplenomegaly present Auscultation: normoactive bowel sounds General: Yes no CVA tenderness Back/Spine/Pelvis Back: no CVA tenderness and No back tenderness Cervical Spine: cervical ROM normal Thoracic/Lumbar Spine: thoracic and lumbar spine normal to inspection, straight leg raise negative bilaterally, No thoraco-lumbar ROM limited and No lumbar spinal tenderness Skin Lesions: no lesions Rashes: no rashes Wounds: no wounds Neuro General: oriented to person, oriented to place, patient oriented x3, CN's II-XI intact bilaterally and No confusion Cranial nerves: Yes Equal, round and reactive pupils present and Yes Normal accommodation reflex present Cognition (Neuro): normal cognition Speech: No Abnormal speech present Gait exam (Neuro): Normal gait present Motor exam (neuro): 5/5 motor strength present throughout Extrem Right upper extremity: full ROM; no cyanosis Left upper extremity: full ROM; no cyanosis Right lower extremity: no edema Left lower extremity: no edema Psych Appearance: grossly normal Mental Status: mental status grossly normal Affect: normal affect Attitude: cooperative Thought process: Normal thought process present Results AMB Hemoglobin A1c AMB Hemoglobin A1c 7.2 % Last Edit by KENNEDY Dawson on 06/01/23 09:38 Results Reviewed Results Reviewed: Laboratory Last Values Hgb A1c (Clinic) 7.2 % (4.0-6.0) H 06/01/23 09:37 Assessment and Plan Assessment & Plan (1) Annual physical exam: Code(s): Z00.00 - Encounter for general adult medical examination without abnormal findings (2) DMII (diabetes mellitus, type 2): Code(s): E11.9 - Type 2 diabetes mellitus without complications Qualifiers: Diabetes mellitus residential insulin use: without residential use Diabetes mellitus complication status: without complication Qualified Code(s): E11.9 - Type 2 diabetes mellitus without complications Plan: Patient's type 2 diabetes has been suboptimally cold told recently. Today's A1c is 7.2. He does admit to dietary indiscretion over the holidays. Will continue his current dose of anti-hyperglycemic medication. Goal A1c is to remain below 7.0. (3) CAD (coronary artery disease): Code(s): I25.10 - Atherosclerotic heart disease of [place] coronary artery without angina pectoris Qualifiers: Coronary Disease-Associated Artery/Lesion type: [place] artery [place] vs. transplanted heart: [place] heart Associated angina: without angina Qualified Code(s): I25.10 - Atherosclerotic heart disease of [place] coronary artery without angina pectoris Plan: Patient has been asymptomatic, most recent lipid panel showing excellent control over his total cholesterol and LDL. Goal LDL to remain below 70 (4) HTN (hypertension): Code(s): I10 - Essential (primary) hypertension Qualifiers: Hypertension type: essential hypertension Qualified Code(s): I10 - Essential (primary) hypertension Plan: Patient's blood pressure acceptable today in office. Will continue current antihypertensive medication with goal blood pressure to remain below 140/90 (5) GERD (gastroesophageal reflux disease): Code(s): K21.9 - Gastro-esophageal reflux disease without esophagitis Qualifiers: Esophagitis presence: without esophagitis Qualified Code(s): K21.9 - Gastro-esophageal reflux disease without esophagitis Plan: Recently underwent endoscopy and did have small ulcerations, no [place]'s esophagus. Recommendations to made of increasing his omeprazole to 40 mg. (6) Concentration deficit: Code(s): R41.840 - Attention and concentration deficit Plan: Has followed up with Neurology and reviewed his brain MRI. Concentration and memory deficits likely due to age. Patient does attribute his memory issues to COVID infection. Orders: Orders AMB Hemoglobin A1c Today E11.9 - Type 2 diabetes mellitus without complications Complete Blood Count no Diff Today D50.0 - Iron deficiency anemia secondary to blood loss (chronic) IRON PROFILE Today D50.0 - Iron deficiency anemia secondary to blood loss (chronic), D50.9 - Iron deficiency anemia, unspecified Comprehensive [place]. Panel Fast Today E11.9 - Type 2 diabetes mellitus without complications Microalbumin, Random (w Creat) Today E11.9 - Type 2 diabetes mellitus without complications Lipid Panel Today I25.10 - Atherosclerotic heart disease of [place] coronary artery without angina pectoris Prostate Specific Antigen Scr Today I25.10 - Atherosclerotic heart disease of [place] coronary artery without angina pectoris, Z12.5 - Encounter for screening for malignant neoplasm of prostate Medications: New omeprazole 40 mg PO DAILY 90 days 90 caps 1RF K21.9 - Gastro-esophageal reflux disease without esophagitis Discontinued omeprazole Discontinued Reason: Doctor's Order 20 mg PO DAILY 90 days 90 caps 1RF D50.0 - Iron deficiency anemia secondary to blood loss (chronic), K21.9 - Gastro-esophageal reflux disease without esophagitis Coding Level of Care Code Est Pt Prev Care >65y(49906) Diagnoses Annual physical exam Z00.00 Type 2 diabetes mellitus without complication, without long-term current use of insulin E11.9 Diabetes mellitus residential insulin use: without residential use Diabetes mellitus complication status: without complication Coronary artery disease involving [place] coronary artery of [place] heart without angina pectoris I25.10 Coronary Disease-Associated Artery/Lesion type: [place] artery [place] vs. transplanted heart: [place] heart Associated angina: without angina Essential hypertension I10 Hypertension type: essential hypertension Gastroesophageal reflux disease without esophagitis K21.9 Esophagitis presence: without esophagitis Concentration deficit R41.840 Additional Codes AMARILYS-7 Assessment Billing - AMARILYS-7 Assessment Tool: AMARILYS-7 Assessment [id number] ([id number])
[2023-06-01 09:21] VITALS: BP 120/62; PULSE 80; RESP 17; BMI 24.5
== END 2023-06-01 10:16 | disposition home or self-care (01) ==
PROVIDERS: PCP Internal Medicine; Visit Provider Physician Assistant
DX: Z00.00 Encounter for general adult medical examination without abnormal findings (principal); E11.9 Type 2 diabetes mellitus without complications; I25.10 Atherosclerotic heart disease of native coronary artery without angina pectoris; I10 Essential (primary) hypertension; K21.9 Gastro-esophageal reflux disease without esophagitis; R41.840 Attention and concentration deficit
CPT/HCPCS: 83036; 99397

== ENCOUNTER 2023-06-02 08:53 | Outpatient (REF) | payer MEDICARE, SELFPAY | END 2023-06-02 08:54 | disposition home or self-care (01) | LOC: HO.HMGCX 08:53 | PROVIDERS: PCP Internal Medicine; Visit Provider Internal Medicine | DX: R10.10 Upper abdominal pain, unspecified (principal) | CPT/HCPCS: 76700 ==

== ENCOUNTER 2023-08-31 12:40 | Outpatient (RCR) | payer MEDICARE, SELFPAY ==
--- NOTE | 2023-08-31 16:28 | MHC.SP.ADU ---
Referring provider: Regina Costa MD Reason for Referral: cognitive-linguistic testing Type of Treatment: 38456 Standardized Cognitive Performance Testing, per hour Date of Plan of Treatment: 08/31/23 Onset of Symptoms/Illness: 05/29/2022 Date Treatment Started: 08/31/23 Medical Diagnosis: Other amnesia Primary Speech Language Diagnosis: R41.841 Cognitive communication disorder History Deepak is a 72 year old male referred to [facility] for cognitive-linguistic testing by Regina Stratton MD. Deepak?s referral reported a score of 28 on the Mini-Mental State Examination (MMSE). A score of 25 or higher is classified as normal, with 30 as the highest possible score. His referral also noted a recent MRI which showed ?mild white matter changes and an incidental cavernoma.? Per patient intake form, Deepak reported concern in following areas: expressing thoughts, being understood by others, understanding what others are saying to you, orientation/memory, problem solving, focusing/attention, finding words, maintaining topic of conversation, and following directions. During the patient interview Deepak highlights difficulty in the areas of memory and sustained attention, particularly when distractions are present. He reports difficulty in his activities of daily living that are of great importance to him, including getting through daily prayer in the mornings and engaging in social situations. He reports that he sometimes gets accused of not listening in conversations with others. Deepak reports using memory strategies such as repetition and writing down information to assist in daily activities at home and socially. He reports that he noticed these challenges began and progressively worsened after he had COVID in May 2022. Medical History: Acid Reflux Allergies Bronchitis Cardiovascular Disease Diabetes Head Injury Heart Attack Pneumonia Other: Ear Infections Medication List: crestor, metformin, lisinopril, zetia, coreg, xalatan, aspirin, nitroglycerine, cialis, famotidine, januvia Recent Hospitalizations: No Respiratory Needs: Room Air Patient Orientation: Alert & Oriented x 4 Social History: Employment Status: Retired Highest level of education obtained: Some college Current Living Situation: Private residence w/ spouse Past Speech Language Therapy: None reported Other Therapies Seen in Current Calendar Year: None Swallowing History: Dysphagia Specific: Within Functional Limits Comments: No difficulty swallowing was reported Pre-eval Risk for Aspiration: History of Pneumonia Reported Speech, Language, Cognition difficulties: Understanding Attention Memory Cognition Problem Solving Assessment Tests of Cognition: RBANS: Repeatable Battery for the Assessment of Neuropsychological Status The RBANS-Updated Form A assesses aspects of cognitive memory, language, and attention skills. The RBANS is considered a screening battery for cognitive function and is repeatable for the purpose of evaluating any changes in function. It is intended for use with adolescents and adults, ages 12 to 89 years. Composite domains assessed in this test are: Immediate Memory, Visuospatial/Constructional, Language, Attention, and Delayed Memory. Interpretation of test performance is based on normative data on individuals between ages 70-79. Deepak?s performance is summarized below: IMMEDIATE MEMORY: This domain assesses the individual's ability to remember information immediately after it is presented. Deepak was read a list of 10 words and asked to repeat back as many words as he could. Upon the first reading of the wordlist, Deepak recalled 4 words accurately. The word list was repeated three additional times and Deepak was able to recall an increasing number of words; up to 9. Deepak was then read aloud a story and asked to recall as many details as possible. Upon the first reading of the story, Deepak recalled 7 of 12 henriquez details. Following the second reading, Deepak recalled 12 of 12 henriquez details. Because Deepak was able to recall more words from a wordlist and more details of a story with subsequent repetitions, this may indicate that repetition of information is a strategy to help facilitate memory recall. List Learning Total Score: 26 Scaled Score: 10 Interpretation: Average Story Memory Total Score: 18 Scaled Score: 11 Interpretation: Average Immediate Memory Index Score: 103 Interpretation: Average VISUOSPATIAL/CONSTUCTIONAL: This domain assesses the individual's ability to perceive spatial relations and to construct a spatially accurate copy of a drawing. During the Figure Copy task, Deepak was given an example of a specific figure to copy onto a piece of paper. At times, he presented with difficulty with size and location of placing specific details of the figure onto the paper. He was later asked to draw the figure again out of memory towards the end of the test. This figure looked nearly identical to the first drawing, with one item out of place, and a few others demonstrating difficutly with size and location. He also demonstrated difficulty in the Line Orientation task in which she was asked to match two lines below to a series of numbered lines above. It is recommended that visuospatial skills be evaluated further through the Cognitive Linguistic Quick Test (CLQT). Figure Copy Total Score: 17 Scaled Score: 9 Interpretation: Average Line Orientation Total Score: 13 Percentile Group: 10-16 Interpretation: Low Average Visuospatial/Constructional Index Score: 87 Interpretation: Low Average LANGUAGE: This domain assesses the individual's ability to respond verbally to either naming or retrieving learned material. Deepak presents with a relative strength of naming the word of various line drawings presented, scoring 10/10. He was then asked to name as many fruits and vegetables as he could in one minute in a Semantic Fluency task. Deepak was observed to name 15 items in the first 30 seconds and 5 in the second 30 seconds, one of which was a repetition (apple). Picture Naming Total Score: 10 Percentile Group: 51-75 Interpretation: Average Semantic Fluency Total Score: 19 Scaled Score: 9 Interpretation: Average Language Index Score: 99 Interpretation: Average ATTENTION: This domain assesses the individual's capacity to remember and manipulate both visually and orally presented information in short-term memory storage Deepak was read aloud strings of numbers of varying lengths then asked to recall the numbers. He quickly and accurately recalled strings of 5 numbers. When given strings of 6 numbers, he inverted the third and fourth number both times. In the coding subtest, Deepak was asked to write numbers to their matching symbols as quickly and efficiently as possible within 90 seconds. Deepak attended appropriately to the 90 second task and produced no errors. Digit Span Total Score: 8 Scaled Score: 7 Interpretation: Low Average Coding Total Score: 46 Scaled Score: 12 Interpretation: High Average Attention Index Score: 97 Interpretation: Average DELAYED MEMORY: This domain assesses the individual's anterograde memory capacity. Low scores indicate difficulties with recognition and retrieval of information from long-term memory stores. Deepak demonstrated a greater strength with recognizing the words in the 10-wordlist than recalling the words without any cueing. He also demonstrated a greater strength recalling the details of a story as compared to a novel wordlist. This may indicate that recognition cueing and storytelling may be incorporated into strategies to support Deepak?s memory. List Recall Total Score: 3 Percentile Group: 17-25 Interpretation: Low Average List Recognition Total Score: 19 Percentile Group: 26-50 Interpretation: Average Story Recall Total Score: 8 Scaled Score: 9 Interpretation: Average Figure Recall Total Score: 14 Scaled Score: 11 Interpretation: Average Delayed Memory Index Score: 101 Interpretation: Average Sum of Index Scores: 487 Total Scale Score: 95 Percentile: 37 Interpretation: Average Jaun Whitmore (1998). Repeatable Battery for the Assessment of Neuropsychological Status [Manual]. [place]: Ilene. Impressions and Recommendations Summary: Although Deepak scored low average to high average on all sections of the RBANS, he reports daily challenges associated with cognitive-linguistic skills. Some of the reported challenges may be related to hearing loss. It is recommended that Deepak be referred for an audiological evaluation to rule in/out hearing loss. It is recommended that Deepak attend speech therapy for 3-6 sessions to participate in further testing and treatment to improve skills in the areas of attention and memory to ultimately support cognitive-linguistic function during social and personal activities of daily living. Deepak presents as motivated and has the potential of gaining useful and tangible skills through speech therapy. ? Impact on Daily Function/Activity Limitations: Daily Activities: Mild Interpersonal Interactions: Mild Employment: Mild Prognosis for Improvement: Good Recommendation for Speech Therapy: Further Testing Needed Outpatient Speech Therapy Frequency/Duration: 1x/week x 3-6 weeks [facility] Goals: LTG 1 Deepak will complete additional standardized testing to obtain standardized scores and update goals as appropriate. LTG 2 Deepak will improve cognitive skills in the area of memory LTG 3 Deepak will improve cognitive skills in the area of sustained attention Short Term Goals: STG 1.1 Deepak will complete the Cognitive Linguistic Quick Test (CLQT) with 100% completion to better inform goals. Goal Status: New Goal STG 2.1 Deepak will independently recall 3 memory strategies STG 2.2 Deepak will recall information with >80% accuracy using spaced retrieval throughout one speech therapy with minimal cueing Goal Status: New Goal STG 3.1 Deepak will sustain attention to a task for 10+ minutes in an environment, with noise and/or other distractions present, across three consecutive sessions Goal Status: New Goal Recommended Referrals to be Discussed with Primary Care Provider: Audiological Evaluation It is recommended that Deepak be referred for an audiological evaluation to rule in/out hearing loss Patient Education: Completed: Yes Patient/Caregiver Education: Described Results of Evaluation Patient expressed understanding of evaluation Patient agrees with goals and treatment plan It was a pleasure to meet and work with Deepak. If you have any questions about the contents of this report, do not hesitate to contact me at [phone] or [email or web address] Demographic Analyst Clinican/Clinical Fellow: No Supervisory Statement: N/A Speech Language Pathologist: Manuela Sterling M.A., CCC-CDL [employer]
== END 2023-09-08 12:15 | disposition still patient (30) ==
LOC: HO.SH 12:40
PROVIDERS: PCP Physician Assistant; Visit Provider Psychiatry & Neurology Neurology
DX: R41.3 Other amnesia (principal); R41.841 Cognitive communication deficit
CPT/HCPCS: 96125

== ENCOUNTER 2023-11-22 10:50 | Outpatient (AMB) | payer MEDICARE, SELFPAY ==
[2023-11-22 10:56] VITALS: BP 120/70; PULSE 82; O2SAT 99; BMI 24.1
--- NOTE | 2023-11-22 10:56 | MHC.PC.OV ---
Vital Signs 11/22/23 10:56 Height 5 ft 7 in Weight 154 lb BMI 24.1 BP 120/70 Blood Pressure Location Lt brachial Position Sitting Pulse 82 Pulse Source Pulse Oximeter Pulse Oximetry (%) 99 Oxygen Delivery Method Room Air Intake Visit Reasons: cough/diarrea Trial Examiner Required: No Accompanied by: Spouse Allergies clopidogrel [Plavix] Allergy (Intermediate, Verified 11/22/23 11:26) extremity swelling, itch shellfish derived Allergy (Intermediate, Verified 11/22/23 11:26) Swelling simvastatin Allergy (Intermediate, Verified 11/22/23 11:26) Muscle Pain ticlopidine [From Ticlid] Allergy (Intermediate, Verified 11/22/23 11:26) Extremity swelling, itch atorvastatin Adverse Reaction (Intermediate, Verified 11/22/23 11:26) muscle weakness, other propoxyphene [From Darvon] Adverse Reaction (Mild, Verified 11/22/23 11:26) Headache, Migraine Medication List - Last Reconciled 11/22/23 by Lamont Currie PA-C albuterol sulfate 2.5 mg (3 mL) inhalation Q6H PRN 30 days albuterol sulfate 90 mcg/actuation 2 puffs inhalation Q6H aspirin 81 mg PO DAILY carvedilol 9.375 mg (1.5 x 6.25 mg) PO BID cholecalciferol (vitamin D3) 125 mcg PO DAILY codeine-guaifenesin 10-100 mg/5 mL 5 mL PO Q6H PRN 5 days diclofenac sodium 1% (Arthritis Pain (diclofenac)) 2 grams topical QID PRN 10 days ezetimibe 10 mg PO DAILY famotidine 20 mg PO DAILY latanoprost 0.005% 1 drp ophthalmic (eye) QPM lisinopril 2.5 mg PO DAILY metformin 1,000 mg PO BID 90 days nebulizers (AeroEclipse II Nebulizer) As directed nitroglycerin 0.4 mg sublingual Q5M PRN prednisone 10 mg PO DIRECTED 9 days rosuvastatin 10 mg PO DAILY sitagliptin phosphate (Januvia) 100 mg PO DAILY 90 days tadalafil 10 mg PO DAILY Tobacco use date assessed: 06/01/23 Fall risk assessment: No Falls in past year Last assessed Fall Risk: 11/22/23 Dental Screening Dental Screen Date: 06/01/23 HPI cough/diarrea HPI Details Patient is a 73 year-old male here today for a problem visit. Patient has a past medical history significant for type 2 diabetes, hypertension, hyperlipidemia, coronary artery disease, asthma, splenic infarct . . Concerns--> reports having a cough and some diarrhea over the last 5 weeks. Reports being on vacation and may have caught a viral illness. Has been using [id number] cough medication and prescription codeine cough medication without much relief. Of note patient does have asthma and has been using his albuterol inhaler without much relief. Interested in getting a nebulizer to do updraft treatments. He does report prednisone has been helpful for him in the past for his pulmonary symptoms. [facility] Medical History Mild cognitive disorder Back pain Diabetes Asthma Elevated cholesterol Myocardial infarction CAD (coronary artery disease) HTN (hypertension) Surgical History H/O foot surgery H/O cataract extraction H/O colonoscopy Hx of heart artery stent H/O arthroscopy Family History Father Medical history unknown Mother COPD (chronic obstructive pulmonary disease) Myocardial infarction CAD (coronary artery disease) Social History Housing: House Alcohol intake: current Alcohol intake frequency: holidays/special occasions only Patient Tobacco Use Status: Former Tobacco user Tobacco use type: Cigarette Cigarette Packs Per Day: 0.5 e-Cigarette/Vaping Use: Never Used Second Hand Smoke Exposure: No service: Yes Current occupational status: retired Cognitive needs: No Hearing needs: No Vision needs: No Questionnaire Thrive Questionnaire Date Thrive assessed: 06/01/23 AMARILYS-7 AMB Questionnaire AMARILYS-7 Date AMARILYS - 7 assessed: 06/01/23 Source: Developed by Drs. Calixto Gold, Daina Escobar, Jeremie Porras and colleagues, with an educational carri from [employer]. Review of Systems Const Denies headache(s) Eyes Denies loss of vision ENT Denies vertigo, Denies dizziness, Denies headache(s) and Denies sore throat Card Denies chest pain, Denies leg edema and Denies lightheadedness Resp Reports cough, Denies hemoptysis and Denies wheezing GI Denies abdominal pain, Denies melena, Denies constipation, Denies diarrhea and Denies vomiting Denies dysuria, Denies urinary frequency and Denies urinary urgency Musc Denies arthralgias, Denies joint swelling, Denies numbness and Denies tingling Neuro Denies Abnormal speech present, Denies behavioral changes, Denies vertigo, Denies dizziness, Denies headache(s), Denies loss of vision, Denies memory loss, Denies numbness and Denies tingling Psych Denies anxiety, Denies behavioral changes, Denies depression, Denies memory loss and Denies panic attacks Sumeet/Lymph Denies easy bleeding and Denies easy bruising Aller/Immun Denies wheezing Physical exam (Primary Care) Vital Signs: Last Vital Signs Pulse 82 11/22/23 10:56 BP 120/70 11/22/23 10:56 Pulse Ox 99 11/22/23 10:56 Oxygen Delivery Method Room Air 11/22/23 10:56 BMI result Body Mass Index 24.1 Tobacco/Smoking Status: Tobacco use Status Tobacco use date assessed 06/01/23 11/22/23 10:59 Patient Tobacco Use Status Former Tobacco user 11/22/23 10:59 Tobacco use type Cigarette 11/22/23 10:59 e-Cigarette/Vaping Use Never Used 11/22/23 10:59 Thrive Assessment: Date of Thrive Assessment Date Thrive assessed 06/01/23 11/22/23 10:59 Const General: healthy appearing, no acute distress, alert and awake Nutritional Appearance: well nourished Orientation/consciousness: oriented to person, oriented to place and oriented to time [facility] Ears: TM's normal bilaterally General nose exam: Normal nasal mucous membranes and turbinates present Eyes Conjunctivae: conjunctivae normal Sclerae: sclerae normal Pupils: Equal, round and reactive pupils present Neck Neck: Yes no lymphadenopathy and Yes no JVD Thyroid: Thyroid normal Carotids: no bruits Resp Effort & Inspection: normal respiratory effort and not tachypneic Auscultation: no crackles, no rales, no rhonchi and no wheezes Cardio Rate: regular rate Rhythm: regular rhythm Heart sounds: no murmurs and normal S1 and S2 GI Palpation (GI): Soft to palpation, nontender, no hepatomegaly and no splenomegaly Auscultation: normal bowel sounds Skin General skin exam: no rashes or lesions noted and dry skin Neuro General: oriented to person, oriented to place and oriented to time Cranial nerves: Yes Equal, round and reactive pupils present Speech: No Abnormal speech present Gait exam (Neuro): Normal gait present Motor exam (neuro): no tremor noted Extrem Right upper extremity: full ROM Left upper extremity: full ROM Right lower extremity: full ROM; no edema Left lower extremity: full ROM; no edema Psych Mental Status: mental status grossly normal Speech and movement: Normal speech and movement present Affect: normal affect Attitude: cooperative Thought process: Normal thought process present Assessment and Plan Assessment & Plan (1) Asthma: Comment: allergy induced symptoms-has prn inhaler Code(s): J45.909 - Unspecified asthma, uncomplicated Qualifiers: Asthma severity: mild Asthma persistence: persistent Asthma complication type: with acute exacerbation Qualified Code(s): J45.31 - Mild persistent asthma with (acute) exacerbation Plan: Patient seems to be having an asthma exacerbation. Will supply patient paper Rx for nebulizer and albuterol solution. Will supply also a prednisone taper to reduce his asthma symptoms and cough. Will send for chest x-ray to evaluate for any pulmonary infiltrate (2) SNHL (sensorineural hearing loss): Code(s): H90.5 - Unspecified sensorineural hearing loss Qualifiers: Laterality: bilateral Qualified Code(s): H90.3 - Sensorineural hearing loss, bilateral Plan: Has been having worsening hearing over the last few years. He reports his hearing is worse when there is background noise. Would like to get hearing exam Orders: Orders XR chest 2V Today J45.31 - Mild persistent asthma with (acute) exacerbation Referrals Speech and Hearing Referral H90.3 - Sensorineural hearing loss, bilateral Medications: New nebulizers (AeroEclipse II Nebulizer) As directed 1 ea 0RF J45.31 - Mild persistent asthma with (acute) exacerbation albuterol sulfate 2.5 mg (3 mL) inhalation Q6H 30 days PRN 180 mL 0RF shortness of breath or wheezing J45.31 - Mild persistent asthma with (acute) exacerbation prednisone take 3 tablets x3 days, 2 tablets x3 days, 1 tablet x3 days 10 mg PO DIRECTED 9 days 18 tabs 0RF J45.31 - Mild persistent asthma with (acute) exacerbation codeine-guaifenesin 10-100 mg/5 mL 5 mL PO Q6H 5 days PRN 120 mL 0RF cough J45.31 - Mild persistent asthma with (acute) exacerbation Coding Level of Care Code Est Pt Level 3 (45134) Diagnoses Mild persistent asthma with acute exacerbation J45.31 Asthma severity: mild Asthma persistence: persistent Asthma complication type: with acute exacerbation Sensorineural hearing loss (SNHL) of both ears H90.3 Laterality: bilateral
== END 2023-11-22 11:32 | disposition home or self-care (01) ==
PROVIDERS: PCP Internal Medicine; Visit Provider Physician Assistant
DX: J45.31 Mild persistent asthma with (acute) exacerbation (principal); H90.3 Sensorineural hearing loss, bilateral
CPT/HCPCS: 99213

== ENCOUNTER 2023-11-22 11:38 | Outpatient (REF) | payer MEDICARE, SELFPAY ==
--- NOTE | ~2023-11-22 | XR_ITS ---
EXAMINATION: XR CHEST CLINICAL INFORMATION: Mild persistent asthma with acute exacerbation, cough for five weeks. COMPARISON: 12/23/2021. TECHNIQUE: 2 views of the chest were obtained. FINDINGS: There is no gross pneumothorax. Heart size is normal. Possible 1.5 cm nodule versus nipple shadow at the left lung base and possible similar, less prominent nodular opacity at the right lung base. Repeat view with nipple markers recommended. If findings persist, CT scan recommended for further evaluation. No gross pleural effusion. Degenerative changes in the thoracic spine. XR/XR chest 2V IMPRESSION: Possible 1.5 cm nodule versus nipple shadow at the left lung base and possible similar, less prominent nodular opacity at the right lung base. Repeat view with nipple markers recommended. If findings persist, CT scan recommended for further evaluation. This study was presented to [place] December 13, 2023 for interpretation. PSA staff will provide results to referring provider at this time.
== END 2023-11-22 11:39 | disposition home or self-care (01) ==
LOC: HO.XRAY 11:38
PROVIDERS: PCP Physician Assistant; Visit Provider Physician Assistant
DX: J45.31 Mild persistent asthma with (acute) exacerbation (principal)
CPT/HCPCS: 71046

== ENCOUNTER 2023-11-29 13:30 | Outpatient (RCR) | payer MEDICARE, SELFPAY ==
--- NOTE | 2024-01-04 13:46 | MHC.SL.SOA ---
Referring Provider: Regina Costa MD Reason for Referral: cognitive-linguistic testing Date of Plan of Treatment:08/31/23 Onset of Symptoms/Illness:05/29/22 Date Treatment Started:08/31/23 Medical Diagnosis:MCI Primary Speech Language Diagnosis:R41.841 Cognitive communication disorder Reason for Visit:[id number] Individual Treatment Subjective:This an administrative discharge for Deepak Bauer. Deepak was initially evaluated on 08/31/23. He was seen for 4 visits on 10/04/23, 10/11/23, 10/18/23 and 11/29/23. I Objective: The following goals were recommended at evaluation: STG 1.1 Deepak will complete the Cognitive Linguistic Quick Test (CLQT) with 100% completion to better inform goals. STG 2.1 Deepak will independently recall 3 memory strategies STG 2.2 Deepak will recall information with >80% accuracy using spaced retrieval throughout one speech therapy with minimal cueing STG 3.1 Deepak will sustain attention to a task for 10+ minutes in an environment, with noise and/or other distractions present, across three consecutive sessions. During his return visit on 11/29/23 he reports resolution of his symptoms. Assessment:Deepak initially wanted to trial therapy before a planned Summer vacation. Unfortunately he suffered a in the family at the end of September, and would not have been able to dedicate his focus to treatment. It was deemed appropriate for him to return after his vacation for a one month follow-up. At that time, he reported feeling much better about his symptoms and the he did not feel he needed to continue with Cognitive-Communication Therapy at this time. ACTUARIAL MATHEMATICIAN concurred, and he was invited to return for re-assessment at a later date if he though he would benefit from our services. Plan: Goal # : STG 1.1 Deepak will complete the Cognitive Linguistic Quick Test (CLQT) with 100% completion to better inform goals. Status of Goal: Discharge Goal Goal # : STG 2.1 Deepak will independently recall 3 memory strategies STG 2.2 Deepak will recall information with >80% accuracy using spaced retrieval throughout one speech therapy with minimal cueing Status of Goal: Discharge Goal Goal # : STG 3.1 Deepak will sustain attention to a task for 10+ minutes in an environment, with noise and/or other distractions present, across three consecutive sessions Status of Goal: Discharge Goal Seen by: Graduate/Clinical Fellow: No Supervisory Statement: f_Reg Query Last Value , MHC.AU.SIGNATUR Speech Language Pathologist: Sai Barker M.A., [facility]-ACTUARIAL MATHEMATICIAN
== END 2024-01-05 09:15 | disposition home or self-care (01) ==
LOC: HO.SH 13:30
PROVIDERS: PCP Internal Medicine; Visit Provider Psychiatry & Neurology Neurology
DX: R41.3 Other amnesia (principal)
CPT/HCPCS: 92507

== ENCOUNTER 2023-12-04 10:39 | Outpatient (REF) | payer MEDICARE, SELFPAY | END 2023-12-04 10:40 | disposition home or self-care (01) | LOC: HO.SH 10:39 | PROVIDERS: PCP Physician Assistant; Visit Provider Physician Assistant | DX: Z01.118 Encounter for examination of ears and hearing with other abnormal findings (principal); H90.3 Sensorineural hearing loss, bilateral | CPT/HCPCS: 92557; 92567 ==

== ENCOUNTER 2023-12-13 10:15 | Outpatient (REF) | payer MEDICARE, SELFPAY ==
--- NOTE | ~2023-12-13 | XR_ITS ---
EXAMINATION: XR chest 2V CLINICAL INFORMATION: Reason for Exam J45.31 - Mild persistent asthma with (acute) exacerbation COMPARISON: No prior chest x-ray available in our system for comparison at the time of this dictation. TECHNIQUE: XR chest 2V, 2 Views Lungs and Stephanie: Both lungs are clear. Nipple marker superimposed on the density left lung base consistent with a nipple shadow. Pleura: Normal. Costophrenic angles are sharp. No pneumothorax. Heart: The heart is normal in size. Mediastinum: The mediastinum is within normal limits.. Bones: Skeletal structures included are normal for patient's age. XR/XR chest 2V IMPRESSION: Nipple shadow projecting over the left lung base superimposed on a nipple marker. No radiographic evidence of acute cardiopulmonary disease.
== END 2023-12-13 10:16 | disposition home or self-care (01) ==
LOC: HO.XRAY 10:15
PROVIDERS: PCP Physician Assistant; Visit Provider Physician Assistant
DX: J45.31 Mild persistent asthma with (acute) exacerbation (principal)
CPT/HCPCS: 71046

== ENCOUNTER 2023-12-13 10:53 | Day surgery (SDC) | payer MEDICARE, SELFPAY ==
[2023-12-11 14:12] VITALS: BMI 25.5
[2023-12-13 11:12] VITALS: BMI 25.3
[2023-12-13 11:29] VITALS: BP 134/66; PULSE 70; RESP 16; TEMP 36.3; O2SAT 98
--- NOTE | 2023-12-13 11:35 | HO.ANESPROP2 ---
Documented by User: Evy Gallardo NP 12/12/23 10:28 HPI - Anesthesia Eval Consult details Narrative: 73yo M for Upper Endoscopy s/p EGD 05/2023 with GA-ETT 7.5 (elective intubation - patient had full meal last night and is on Januvia) Anesthesia Pre-Procedure Meds Is the patient on any of the following meds?: GLP1/DPP4 PMFSH Active Problems Active Problems: All Active Problems SNHL (sensorineural hearing loss) (Acute) Asthma (Acute) Elevated PSA (Acute) Concentration deficit (Acute) Short-term memory loss (Acute) Anemia (Acute) GERD (gastroesophageal reflux disease) (Acute) Post-viral cough syndrome (Acute) SOB (shortness of breath) (Acute) BPPV (benign paroxysmal positional vertigo) (Acute) Exposure to COVID-19 virus (Acute) Pre-op evaluation (Acute) Splenic infarct (Chronic) Cough (Acute) Loose stools (Acute) LLQ abdominal pain (Acute) Annual physical exam (Acute) Erectile dysfunction (Acute) Tick bite (Acute) CAD (coronary artery disease) (Acute) DMII (diabetes mellitus, type 2) (Acute) HTN (hypertension) (Acute) Mild cognitive disorder (Acute) Back pain (Acute) Past Medical History Medical History Mild cognitive disorder Back pain Diabetes Asthma Elevated cholesterol Myocardial infarction CAD (coronary artery disease) HTN (hypertension) Family History Family History Father Medical history unknown Mother COPD (chronic obstructive pulmonary disease) Myocardial infarction CAD (coronary artery disease) Family history of problems with anesthesia: No Surgical History Surgical History H/O foot surgery H/O cataract extraction H/O colonoscopy Hx of heart artery stent H/O arthroscopy History of Problems with Anesthesia: No Social History Social History Housing: House Alcohol intake: current Alcohol intake frequency: holidays/special occasions only Patient Tobacco Use Status: Former Tobacco user Tobacco use type: Cigarette Cigarette Packs Per Day: 0.5 Years Smoked: 20 e-Cigarette/Vaping Use: Never Used Second Hand Smoke Exposure: No Use of substances other than those prescribed or required for medical reasons: No Are you DNR?: No Advance Directives: No Advance Directives Information Provided: Yes service: Yes Current occupational status: retired Cognitive needs: No Hearing needs: No Vision needs: No Meds Allergies Allergy/AdvReac Type Severity Reaction Status Date / Time clopidogrel [Plavix] Allergy Intermediate extremity Verified 11/22/23 11:26 swelling, itch shellfish derived Allergy Intermediate Swelling Verified 11/22/23 11:26 simvastatin Allergy Intermediate Muscle Pain Verified 11/22/23 11:26 ticlopidine [From Ticlid] Allergy Intermediate Extremity Verified 11/22/23 11:26 swelling, itch atorvastatin AdvReac Intermediate muscle Verified 11/22/23 11:26 weakness, other propoxyphene [From Darvon] AdvReac Mild Headache, Verified 11/22/23 11:26 Migraine Home Medications ?Medication ?Instructions ?Recorded ?Confirmed ?Last Taken ?Type aspirin 81 mg tablet,delayed 81 mg PO DAILY 03/30/20 12/11/23 05/27/23 History release latanoprost 0.005 % eye drops 1 drp ophthalmic (eye) QPM 03/30/20 12/11/23 Unknown History nitroglycerin 0.4 mg sublingual 0.4 mg sublingual Q5M PRN Chest 03/30/20 12/11/23 Unknown History tablet Pain Exam Height,Weight and Vital Signs: Height 5 ft 6 in Weight 71.668 kg Assessment and Plan Assessment Anesthesia Assessment: Chart Reviewed Final Anesthetic Review Family History of Problems with Anesthesia: No History of Problems with Anesthesia: No Documented by User: Elissa Hood DO 12/13/23 11:41 HPI - Anesthesia Eval Anesthesia Pre-Procedure Meds Is the patient on any of the following meds?: GLP1/DPP4 If yes to any meds - educate patient: Pt education - increased risk of aspiration and/or euvolemic DKA [facility] Past Medical History Medical History Mild cognitive disorder Back pain Diabetes Asthma Elevated cholesterol Myocardial infarction CAD (coronary artery disease) HTN (hypertension) Family History Family History Father Medical history unknown Mother COPD (chronic obstructive pulmonary disease) Myocardial infarction CAD (coronary artery disease) Family history of problems with anesthesia: No Surgical History Surgical History H/O foot surgery H/O cataract extraction H/O colonoscopy Hx of heart artery stent H/O arthroscopy History of Problems with Anesthesia: No Social History Social History Housing: House Alcohol intake: current Alcohol intake frequency: holidays/special occasions only Patient Tobacco Use Status: Former Tobacco user Tobacco use type: Cigarette Cigarette Packs Per Day: 0.5 Years Smoked: 20 e-Cigarette/Vaping Use: Never Used Second Hand Smoke Exposure: No Use of substances other than those prescribed or required for medical reasons: No Are you DNR?: No Advance Directives: No Advance Directives Information Provided: Yes service: Yes Current occupational status: retired Cognitive needs: No Hearing needs: No Vision needs: No Meds Allergies Allergy/AdvReac Type Severity Reaction Status Date / Time clopidogrel [Plavix] Allergy Intermediate extremity Verified 11/22/23 11:26 swelling, itch shellfish derived Allergy Intermediate Swelling Verified 11/22/23 11:26 simvastatin Allergy Intermediate Muscle Pain Verified 11/22/23 11:26 ticlopidine [From Ticlid] Allergy Intermediate Extremity Verified 11/22/23 11:26 swelling, itch atorvastatin AdvReac Intermediate muscle Verified 11/22/23 11:26 weakness, other propoxyphene [From Darvon] AdvReac Mild Headache, Verified 11/22/23 11:26 Migraine Home Medications ?Medication ?Instructions ?Recorded ?Confirmed ?Last Taken ?Type aspirin 81 mg tablet,delayed 81 mg PO DAILY 03/30/20 12/11/23 05/27/23 History release latanoprost 0.005 % eye drops 1 drp ophthalmic (eye) QPM 03/30/20 12/11/23 Unknown History nitroglycerin 0.4 mg sublingual 0.4 mg sublingual Q5M PRN Chest 03/30/20 12/11/23 Unknown History tablet Pain Exam Exam Date and Time: December 13, 2023 1135 Height,Weight and Vital Signs: Height 5 ft 6 in Weight 71.668 kg Vital Signs Temperature 97.4 F 12/13/23 11:29 Pulse Rate 70 12/13/23 11:29 Respiratory Rate 16 12/13/23 11:29 Blood Pressure 134/66 12/13/23 11:29 Pulse Oximetry 98 12/13/23 11:29 Oxygen Delivery Method Room Air 12/13/23 11:29 Temperature 97.4 F 12/13/23 11:29 Pulse Rate 70 12/13/23 11:29 Respiratory Rate 16 12/13/23 11:29 Blood Pressure 134/66 12/13/23 11:29 Pulse Oximetry 98 12/13/23 11:29 Oxygen Delivery Method Room Air 12/13/23 11:29 Airway Mallampati Class: I TM Dist: >3cm Neck ROM: Full Partial: Upper Heart: S1S2 Lungs: CTAB Assessment and Plan Assessment Anesthesia Assessment: Anesthesia Plan Discussed and Chart Reviewed Final Anesthetic Review Family History of Problems with Anesthesia: No History of Problems with Anesthesia: No NPO: Yes ASA Class: III Final Preanesthetic Review: No Changes in Pt Med Stat, Meds/Allgs Chart Reviewed, Consent Obtained/Reviewed and Anes Risks/Benef Reviewed Patient Risk: Intermediate Procedure Risk: Low Anesthetic Plan Anesthetic Plan: MAC: and Agree w/ Assess. and Plan Disposition: Standard PACU
[2023-12-13] MEDS: Lactated Ringers 1,000 ML 100 ML IVCONT (11:37)
--- NOTE | 2023-12-13 11:46 | PC.NURSE ---
24hr update documented on paper
--- NOTE | 2023-12-13 12:25 | PM.OP ---
Brief Operative Note Date of Service: 12/13/23 Pre-op diagnosis: Erosive esophagitis Post-op diagnosis: other (Hiatal hernia, healed esophagitis, R/O Greenwood's, mild gastric retention) Procedure: EGD with biopsies Surgeon: Calixto Goncalves MD Anesthesia: GETA Was an Tank Shop Supervisor used for this Procedure?: No Estimated blood loss (mL): 2.0 Pathology: other (A. EG Junction at 35cm) Condition: stable Disposition: PACU
[2023-12-13 12:28] VITALS: BP 127/68; PULSE 75; RESP 16; TEMP 36.4; O2SAT 99
[2023-12-13 12:33] VITALS: BP 127/67; PULSE 78; RESP 17; O2SAT 99
[2023-12-13 12:38] VITALS: BP 130/64; PULSE 76; RESP 17; O2SAT 96
[2023-12-13 12:43] VITALS: BP 114/57; PULSE 80; RESP 17; O2SAT 95
[2023-12-13 12:59] VITALS: BP 121/73; PULSE 76; TEMP 36.1; O2SAT 96
--- NOTE | 2023-12-13 13:01 | OP_ITS ---
DATE OF SERVICE: 12/13/2023 SURGEON: Calixto Goncalves MD INDICATIONS: The patient presents for followup of erosive esophagitis and belching. Full consent has been obtained from him for this, including risks of bleeding and perforation. PREOPERATIVE DIAGNOSIS: POSTOPERATIVE DIAGNOSIS: PROCEDURE PERFORMED: Esophagogastroduodenoscopy with biopsies. ESTIMATED BLOOD LOSS: COMPLICATIONS: ANESTHESIA: Monitored anesthesia care, which was then converted to general anesthesia during the case as it was noted he had food in his stomach. ASSISTANTS: SPECIMENS: PREOPERATIVE DIAGNOSES: Erosive esophagitis and belching. POSTOPERATIVE DIAGNOSES: Erosive esophagitis and belching, healed esophagitis, rule out Greenwood esophagus, hiatal hernia, small amount of gastric retention. DESCRIPTION OF PROCEDURE: The patient was initially placed in the left lateral decubitus position. The Olympus video gastroscope was passed in the posterior oropharynx and upper esophagus under direct vision. The scope was passed slowly into the distal esophagus. The gastroesophageal junction appeared at 35 cm. I did not see any sign of residual erosive esophagitis, although there was some slight irregularity consistent with reflux and possible small areas of Greenwood mucosa. The scope entered the stomach. Immediately upon entering the stomach, there was a small amount of retained food and therefore, the scope was removed. The patient was then intubated and kept in the supine position. I passed the gastroscope under direct vision again into the stomach. The scope was advanced to the pylorus, and the duodenum was cannulated to the descending portion. The duodenum including the bulb appeared normal without mass or ulceration. The scope was withdrawn back to the stomach. The gastric antrum and body appeared normal without any sign of mass or ulceration. Subjectively, peristalsis did appear to be diminished. The scope was retroflexed, visualizing the proximal stomach carefully, which appeared normal, without mass or ulceration. The small amount of gastric retained food was noted in the proximal stomach. The scope was straightened and withdrawn back to the esophagus. Multiple biopsies were obtained at the EG junction at 35 cm. Proximal to that, the esophageal mucosa appeared normal. The scope was withdrawn from the patient. He tolerated the procedure well and was returned to recovery area in stable condition. IMPRESSION: 1. Healed esophagitis. 2. Hiatal hernia. 3. Rule out Greenwood esophagus. 4. Gastric retention. PLAN: The patient will continue famotidine, but I will increase it to 40 mg b.i.d. He was not able to tolerate a PPI due to headaches. I shall also arrange for a nuclear medicine gastric emptying study to further assess his gastric retention. He may have some component of diabetes-induced gastroparesis, but may also be having some side effects from his Januvia medication. He was instructed not to eat for 3 hours before bedtime and to try to eat smaller meals during the day. His belching may very well be in relation to the gastric retention. He will see me in followup as well. This has been discussed with his . MD DERIC Infante/MARION / [phone]
== END 2023-12-13 13:25 | disposition home or self-care (01) ==
PROVIDERS: PCP Physician Assistant; Visit Provider Internal Medicine
PROC: 0DJ08ZZ Inspection of Upper Intestinal Tract, Via Natural or Artificial Opening Endoscopic (ICD-10-PCS; CPT 43235; principal; 2023-12-13 11:50)
DX: K20.80 Other esophagitis without bleeding (principal); R14.2 Eructation; K31.89 Other diseases of stomach and duodenum; K21.9 Gastro-esophageal reflux disease without esophagitis; K44.9 Diaphragmatic hernia without obstruction or gangrene; I10 Essential (primary) hypertension; I25.10 Atherosclerotic heart disease of native coronary artery without angina pectoris; Z95.5 Presence of coronary angioplasty implant and graft; I25.2 Old myocardial infarction; E78.5 Hyperlipidemia, unspecified; E11.9 Type 2 diabetes mellitus without complications; Z79.82 Long term (current) use of aspirin; Z79.84 Long term (current) use of oral hypoglycemic drugs; Z79.899 Other long term (current) drug therapy; Z88.8 Allergy status to other drugs, medicaments and biological substances; Z87.891 Personal history of nicotine dependence
CPT/HCPCS: 43239; 88305; 88313

== ENCOUNTER 2023-12-25 08:11 | Outpatient (REF) | payer MEDICARE, SELFPAY ==
[2023-12-25 09:22] LABS: Hematocrit 42.2 % (42.0-52.0); Hemoglobin 13.7 g/dl (14.0-18.0); Mean Corpuscular HGB Conc 32.5 g/dl (31.0-36.0); Mean Corpuscular Hemoglobin 31.5 pg (27.0-33.0); Mean Platelet Volume 10.6 fL (9.4-12.4); Platelet Count 234 X10*3/uL (160-400); Red Blood Count 4.35 X10*6/uL (4.60-5.80); Red Cell Distribution Width 12.8 % (11.0-16.0); White Blood Count 6.5 X10*3/uL (4.8-10.8)
[2023-12-25 10:09] LABS: Alanine Aminotransferase 18 U/L (0-40); Albumin Level 4.2 g/dL (3.5-5.0); Alkaline Phosphatase 54 U/L (39-117); Anion Gap 11 (12-20); Aspartate Amino Transferase 15 U/L (5-37); Bilirubin Total 0.3 mg/dL (0.0-1.0); Blood Urea Nitrogen 16 mg/dL (9-16); Calcium 9.6 mg/dL (8.4-10.2); Carbon Dioxide 27 mmol/L (22-29); Chloride 108 mmol/L (96-108); Cholesterol 116 mg/dL (<200); Estimated Glomerular Filt Rate > 60; Glucose Fasting 145 mg/dL (60-99); HDL Cholesterol 42 mg/dL (>40); Iron 94 mcg/dL (45-160); LDL Cholesterol Calculated 53 mg/dL (<100); Percent Iron Saturation 33 % (15-50); Potassium 4.3 mmol/L (3.3-5.1); Sodium 142 mmol/L (135-145); Total Iron Binding Capacity 288 mcg/dL (228-428); Total Protein 6.6 g/dL (6.5-8.0); Triglycerides 106 mg/dL (<150); Unsaturated Iron Binding 194 ug/dL
[2023-12-25 10:31] LABS: Prostate Specific Antigen Scr 4.44 ng/mL (<0.05-4.0)
[2023-12-25 10:51] LABS: Creatinine Urine 157.38 mg/dL; Microalbum/Creatinine Ratio Ur 20.3 ug/mg cr (<30)
== END 2023-12-25 08:12 | disposition home or self-care (01) ==
LOC: HO.LAB 08:11
PROVIDERS: PCP Physician Assistant; Visit Provider Physician Assistant
DX: D50.9 Iron deficiency anemia, unspecified (principal); D50.0 Iron deficiency anemia secondary to blood loss (chronic); Z12.5 Encounter for screening for malignant neoplasm of prostate; I25.10 Atherosclerotic heart disease of native coronary artery without angina pectoris; E11.9 Type 2 diabetes mellitus without complications
CPT/HCPCS: 36415; 80053; 80061; 82043; 82570; 83540; 84153; 85027

== ENCOUNTER 2023-12-27 10:12 | Outpatient (AMB) | payer MEDICARE, SELFPAY ==
[2023-12-27 10:19] VITALS: BP 122/70; PULSE 63; O2SAT 96; BMI 24.9
--- NOTE | 2023-12-27 10:19 | A.OFFPC_ITS ---
Vital Signs 12/27/23 10:19 Height 5 ft 6 in Weight 154 lb 2 oz BMI 24.9 BP 122/70 Blood Pressure Location Lt brachial Position Sitting Pulse 63 Pulse Source Pulse Oximeter Pulse Oximetry (%) 96 Oxygen Delivery Method Room Air Intake Visit Reasons: 6mth f/u Maintenance Foreman Required: No Accompanied by: Self / Same As Patient Allergies clopidogrel [Plavix] Allergy (Intermediate, Verified 12/27/23 10:40) extremity swelling, itch shellfish derived Allergy (Intermediate, Verified 12/27/23 10:40) Swelling simvastatin Allergy (Intermediate, Verified 12/27/23 10:40) Muscle Pain ticlopidine [From Ticlid] Allergy (Intermediate, Verified 12/27/23 10:40) Extremity swelling, itch atorvastatin Adverse Reaction (Intermediate, Verified 12/27/23 10:40) muscle weakness, other propoxyphene [From Darvon] Adverse Reaction (Mild, Verified 12/27/23 10:40) Headache, Migraine Medication List - Last Reconciled 12/27/23 by Lamont Currie PA-C albuterol sulfate 2.5 mg (3 mL) inhalation Q6H PRN 30 days albuterol sulfate 90 mcg/actuation 2 puffs inhalation Q6H aspirin 81 mg PO DAILY carvedilol 9.375 mg (1.5 x 6.25 mg) PO BID cholecalciferol (vitamin D3) 125 mcg PO DAILY codeine-guaifenesin 10-100 mg/5 mL 5 mL PO Q6H PRN 5 days diclofenac sodium 1% (Arthritis Pain (diclofenac)) 2 grams topical QID PRN 10 days ezetimibe 10 mg PO DAILY famotidine 20 mg PO DAILY latanoprost 0.005% 1 drp ophthalmic (eye) QPM lisinopril 2.5 mg PO DAILY metformin 1,000 mg PO BID 90 days nebulizers (AeroEclipse II Nebulizer) As directed nitroglycerin 0.4 mg sublingual Q5M PRN rosuvastatin 10 mg PO DAILY sitagliptin phosphate (Januvia) 100 mg PO DAILY 90 days tadalafil 10 mg PO DAILY Tobacco use date assessed: 06/01/23 Fall risk assessment: No Falls in past year Last assessed Fall Risk: 12/27/23 Dental Screening Dental Screen Date: 06/01/23 HPI 6mth f/u HPI Details Patient is a 73-year-old male here today for a f/u visit. Patient has a past medical history significant for type 2 diabetes, hypertension, hyperlipidemia, c oronary artery disease, asthma. . . Concerns--> continues to follow up with Gastroenterology about his GERD symptoms. He continues on famotidine b.i.d. with good effect. Most recent endoscopy showing healing gastritis ? .. ? Type 2 diabetes:. Patient's type 2 diabetes has been slightly suboptimally controlled. Today's A1c is 6.9. Dietary indiscretion due to the holidays. Will get up back on track with his diet.. ? .. ? Hypertension: Patient reports blood pressures have been stable at home. Denies any headaches, chest pain, shortness of breath. .. CAD: Lipid panel has been acceptable on current dose of statin therapy. He otherwise denies any chest discomfort, dizziness, shortness of breath. 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 Tests 12/16/22 01/23/23 06/01/23 07:35 13:07 09:37 RBC Hgb Fasting Glucose Hgb A1c (Clinic) 7.2 H Cholesterol LDL Cholesterol, C alc PSA Screen 4.32 H Urine Microalbumin 19.0 12/25/23 12/25/23 08:40 Unknown RBC 4.35 L Hgb 13.7 L Fasting Glucose 145 H Hgb A1c (Clinic) Cholesterol 116 LDL Cholesterol, C alc 53 PSA Screen 4.44 H Urine Microalbumin 32.0 PFSH Medical History (Updated 12/27/23 @ 13:28 by Lamont Currie PA-C) Splenic infarct Short-term memory loss Mild cognitive disorder Back pain Diabetes Asthma Elevated cholesterol Myocardial infarction CAD (coronary artery disease) HTN (hypertension) Surgical History H/O foot surgery H/O cataract extraction H/O colonoscopy Hx of heart artery stent H/O arthroscopy Family History Father Medical history unknown Mother COPD (chronic obstructive pulmonary disease) Myocardial infarction CAD (coronary artery disease) Social History Housing: House Alcohol intake: current Alcohol intake frequency: holidays/special occasions only Patient Tobacco Use Status: Former Tobacco user Tobacco use type: Cigarette Cigarette Packs Per Day: 0.5 Years Smoked: 20 e-Cigarette/Vaping Use: Never Used Second Hand Smoke Exposure: No service: Yes Current occupational status: retired Cognitive needs: No Hearing needs: No Vision needs: No Questionnaire Thrive Questionnaire Date Thrive assessed: 06/01/23 AMARILYS-7 AMB Questionnaire AMARILYS-7 Date AMARILYS - 7 assessed: 06/01/23 Source: Developed by Drs. Calixto Gold, Daina Escobar, Jeremie Porras and colleagues, with an educational carri from [employer]. Review of Systems Const Denies headache(s) Eyes Denies loss of vision ENT Denies vertigo, Denies dizziness, Denies headache(s) and Denies sore throat Card Denies chest pain, Denies leg edema and Denies lightheadedness Resp Denies cough, Denies hemoptysis and Denies wheezing GI Denies abdominal pain, Denies melena, Denies constipation, Denies diarrhea and Denies vomiting Denies dysuria, Denies urinary frequency and Denies urinary urgency Musc Denies arthralgias, Denies joint swelling, Denies numbness and Denies tingling Neuro Denies Abnormal speech present, Denies behavioral changes, Denies vertigo, Denies dizziness, Denies headache(s), Denies loss of vision, Denies memory loss, Denies numbness and Denies tingling Psych Denies anxiety, Denies behavioral changes, Denies depression, Denies memory loss and Denies panic attacks Sumeet/Lymph Denies easy bleeding and Denies easy bruising Aller/Immun Denies wheezing Physical exam (Primary Care) Vital Signs: Last Vital Signs Pulse 63 12/27/23 10:19 BP 122/70 12/27/23 10:19 Pulse Ox 96 12/27/23 10:19 Oxygen Delivery Method Room Air 12/27/23 10:19 BMI result Body Mass Index 24.9 Tobacco/Smoking Status: Tobacco use Status Tobacco use date assessed 06/01/23 12/27/23 10:20 Patient Tobacco Use Status Former Tobacco user 12/27/23 10:20 Tobacco use type Cigarette 12/27/23 10:20 e-Cigarette/Vaping Use Never Used 12/27/23 10:20 Thrive Assessment: Date of Thrive Assessment Date Thrive assessed 06/01/23 12/27/23 10:20 Const General: healthy appearing, no acute distress, alert and awake Nutritional Appearance: well nourished Orientation/consciousness: oriented to person, oriented to place and oriented to time HENMT Ears: TM's normal bilaterally General nose exam: Normal nasal mucous membranes and turbinates present Eyes Conjunctivae: conjunctivae normal Sclerae: sclerae normal Pupils: Equal, round and reactive pupils present Neck Neck: Yes no lymphadenopathy and Yes no JVD Thyroid: Thyroid normal Carotids: no bruits Resp Effort & Inspection: normal respiratory effort and not tachypneic Auscultation: no crackles, no rales, no rhonchi and no wheezes Cardio Rate: regular rate Rhythm: regular rhythm Heart sounds: no murmurs and normal S1 and S2 GI Palpation (GI): Soft to palpation, nontender, no hepatomegaly and no splenomegaly Auscultation: normal bowel sounds Skin General skin exam: no rashes or lesions noted and dry skin Neuro General: oriented to person, oriented to place and oriented to time Cranial nerves: Yes Equal, round and reactive pupils present Speech: No Abnormal speech present Gait exam (Neuro): Normal gait present Motor exam (neuro): no tremor noted Extrem Right upper extremity: full ROM Left upper extremity: full ROM Right lower extremity: full ROM; no edema Left lower extremity: full ROM; no edema Psych Mental Status: mental status grossly normal Speech and movement: Normal speech and movement present Affect: normal affect Attitude: cooperative Thought process: Normal thought process present Results AMB Hemoglobin A1c AMB Hemoglobin A1c 6.9 % Last Edit by KENNEDY Dawson on 12/27/23 10:57 Results Reviewed Results Reviewed: Laboratory Last Values Hgb A1c (Clinic) 6.9 % (4.0-6.0) H 12/27/23 10:56 Assessment and Plan Assessment & Plan (1) DMII (diabetes mellitus, type 2): Code(s): E11.9 - Type 2 diabetes mellitus without complications Qualifiers: Diabetes mellitus complication status: without complication Diabetes mellitus terminal block assembler insulin use: without terminal block assembler use Qualified Code(s): E11.9 - Type 2 diabetes mellitus without complications Plan: Patient's type 2 diabetes has been well controlled. Today's A1c is 6.9 from 7.2. He does admit to dietary indiscretion over the holidays. Will continue his current dose of anti-hyperglycemic medication. Goal A1c is to remain below 7.0. (2) CAD (coronary artery disease): Code(s): I25.10 - Atherosclerotic heart disease of [place] coronary artery without angina pectoris Qualifiers: Associated angina: without angina Coronary Disease-Associated Artery/Lesion type: [place] artery [place] vs. transplanted heart: [place] heart Qualified Code(s): I25.10 - Atherosclerotic heart disease of [place] coronary artery without angina pectoris Plan: Patient has been asymptomatic, most recent lipid panel showing excellent control over his total cholesterol and LDL. Goal LDL to remain below 70 (3) HTN (hypertension): Code(s): I10 - Essential (primary) hypertension Qualifiers: Hypertension type: essential hypertension Qualified Code(s): I10 - Ess ential (primary) hypertension Plan: Patient's blood pressure acceptable today in office. Will continue current antihypertensive medication with goal blood pressure to remain below 140/90 (4) GERD (gastroesophageal reflux disease): Code(s): K21.9 - Gastro-esophageal reflux disease without esophagitis Qualifiers: Esophagitis presence: without esophagitis Qualified Code(s): K21.9 - Gastro-esophageal reflux disease without esophagitis Plan: By gastroenterology (Dr. Goncalves) Recently underwent endoscopy and did have small ulcerations, no Greenwood's esophagus. He continues on famotidine with good effect. (5) Asthma: Comment: allergy induced symptoms-has prn inhaler Code(s): J45.909 - Unspecified asthma, uncomplicated Qualifiers: Asthma complication type: with acute exacerbation Asthma persistence: persistent Asthma severity: mild Qualified Code(s): J45.31 - Mild persistent asthma with (acute) exacerbation Plan: Patient reports his asthma has been fairly well controlled. Does use an al buterol inhaler on as needed basis. Did a recent exacerbation that was treated with p.o. steroids with excellent results. (6) Elevated PSA: Code(s): R97.20 - Elevated prostate specific antigen [PSA] Plan: Does have slightly elevated PSA over the last 2 years. He denies any nighttime awakenings to urinate or weak urinary stream. Will continue to follow PSA Orders: Orders AMB Hemoglobin A1c Today E11.9 - Type 2 diabetes mellitus without complications Comprehensive [place]. Panel Fast Today E11.9 - Type 2 diabetes mellitus without complications Complete Blood Count no Diff Today J45.31 - Mild persistent asthma with (acute) exacerbation Lipid Panel Today I25.10 - Atherosclerotic heart disease of [place] coronary artery without angina pectoris Medications: Changed From nitroglycerin do not exceed 3 doses per episode 0.4 mg sublingual Q5M PRN Chest Pain I25.10 - Atherosclerotic heart disease of [place] coronary artery without angina pectoris To nitroglycerin do not exceed 3 doses per episode 0.4 mg sublingual Q5M 14 days PRN 14 tabs 0RF Chest Pain I25.10 - Atherosclerotic heart disease of [place] coronary artery without angina pectoris Patient Instructions: Goal: Blood pressure to remain below 140/90, LDL to remain below 70 Barriers: Adherence to physical activity and healthy eating habits Coding Level of Care Code Est Pt Level 4 (80115) Diagnoses Type 2 diabetes mellitus without complication, without long-term current use of insulin E11.9 Diabetes mellitus complication status: without complication Diabetes mellitus terminal block assembler insulin use: without terminal block assembler use Coronary artery disease involving [place] coronary artery of [place] heart without angina pectoris I25.10 Associated angina: without angina Coronary Disease-Associated Artery/Lesion type: [place] artery [place] vs. transplanted heart: [place] heart Essential hypertension I10 Hypertension type: essential hypertension Gastroesophageal reflux disease without esophagitis K21.9 Esophagitis presence: without esophagitis Mild persistent asthma with acute exacerbation J45.31 Asthma complication type: with acute exacerbation Asthma persistence: persistent Asthma severity: mild Elevated PSA R97.20
== END 2023-12-27 10:59 | disposition home or self-care (01) ==
PROVIDERS: PCP Physician Assistant; Visit Provider Physician Assistant
DX: E11.9 Type 2 diabetes mellitus without complications (principal); I25.10 Atherosclerotic heart disease of native coronary artery without angina pectoris; I10 Essential (primary) hypertension; K21.9 Gastro-esophageal reflux disease without esophagitis; J45.31 Mild persistent asthma with (acute) exacerbation; R97.20 Elevated prostate specific antigen [PSA]
CPT/HCPCS: 83036; 99214

== ENCOUNTER → 2024-01-18 07:46 | Outpatient (REF) | payer MEDICARE, SELFPAY ==
--- NOTE | ~2024-01-18 | NM_ITS ---
EXAMINATION: RADIONUCLIDE SOLID FOOD GASTRIC EMPTYING 4-HOUR STUDY CLINICAL INFORMATION: Retained food in stomach. COMPARISON: No previous gastric emptying study is available for comparison. TECHNIQUE: A standard meal consisting of 4 oz of Egg Beaters brand tagged with 150 microcuries Tc-99m Sulfur Colloid, 8 oz water and 2 slices of toast with jelly was administered orally to the patient. Images were obtained using a dual head gamma camera in the anterior and posterior projections over of the stomach immediately post ingestion and at hourly intervals up to 3 hours post ingestion. Images were not obtained at 4 hours due to the minimal retention at 3 hours. The anterior and posterior counts at each time interval were averaged using the geometric mean and expressed as percentage of the immediate post ingestion counts. FINDINGS: There is good visualization of activity in the stomach immediately post ingestion. As the study progresses, there is good clearance of activity from the stomach and visualization of progressively increasing small bowel activity. By the end of the study, there is almost no retention noted in the stomach. Retention in the stomach at each time interval was: 1 hour 62% (normal 37%-90%) 2 hours 10% (normal 30%-60%) 3 hours 4% 4 hours (Not Obtained) (normal 0%-10%) NM/NM gastric emptying study IMPRESSION: Normal solid food gastric emptying study. Gastric emptying study grading per JNMT Consensus Recommendations in 2008: https://tech.snmjournals.org/content/36/44 Grade 1 (mild retention): 11-20% at 4 hours Grade 2 (moderate retention): 21-35% at 4 hours Grade 3 (severe retention): 36-50% at 4 hours Grade 4 (very severe retention): >50% retention at 4 hours Electronically signed by: Phoenix Mascorro MD 02/06/2024 04:41 PM EDT
== END ==
LOC: HO.NUCMED 07:46
PROVIDERS: PCP Physician Assistant; Visit Provider Internal Medicine
DX: K31.89 Other diseases of stomach and duodenum (principal)
CPT/HCPCS: 78264; A9541

== ENCOUNTER 2024-04-30 07:58 | Outpatient (REF) | payer MEDICARE, SELFPAY ==
[2024-04-30 08:36] LABS: Hematocrit 42.8 % (42.0-52.0); Hemoglobin 13.9 g/dl (14.0-18.0); Mean Corpuscular HGB Conc 32.5 g/dl (31.0-36.0); Mean Corpuscular Hemoglobin 30.8 pg (27.0-33.0); Mean Corpuscular Volume 94.9 fL (80.0-98.0); Mean Platelet Volume 10.7 fL (9.4-12.4); Platelet Count 225 X10*3/uL (160-400); Red Blood Count 4.51 X10*6/uL (4.60-5.80); Red Cell Distribution Width 12.3 % (11.0-16.0); White Blood Count 12.1 X10*3/uL (4.8-10.8)
[2024-04-30 09:18] LABS: Alanine Aminotransferase 18 U/L (0-40); Albumin Level 4.2 g/dL (3.5-5.0); Alkaline Phosphatase 51 U/L (39-117); Anion Gap 10 (12-20); Aspartate Amino Transferase 21 U/L (5-37); Bilirubin Total 0.5 mg/dL (0.0-1.0); Blood Urea Nitrogen 19 mg/dL (9-16); Calcium 9.8 mg/dL (8.4-10.2); Carbon Dioxide 29 mmol/L (22-29); Chloride 107 mmol/L (96-108); Cholesterol 125 mg/dL (<200); Estimated Glomerular Filt Rate > 60; Glucose Fasting 145 mg/dL (60-99); HDL Cholesterol 41 mg/dL (>40); LDL Cholesterol Calculated 61 mg/dL (<100); Potassium 4.5 mmol/L (3.3-5.1); Sodium 141 mmol/L (135-145); Total Protein 6.6 g/dL (6.5-8.0); Triglycerides 119 mg/dL (<150)
== END 2024-04-30 07:59 | disposition home or self-care (01) ==
LOC: HO.LAB 07:58
PROVIDERS: PCP Physician Assistant; Visit Provider Physician Assistant
DX: J45.31 Mild persistent asthma with (acute) exacerbation (principal); E11.9 Type 2 diabetes mellitus without complications; I25.10 Atherosclerotic heart disease of native coronary artery without angina pectoris
CPT/HCPCS: 36415; 80053; 80061; 85027

== ENCOUNTER 2024-05-02 09:46 | Outpatient (AMB) | payer MEDICARE, SELFPAY ==
[2024-05-02 09:53] VITALS: BP 130/72; PULSE 76; O2SAT 97; BMI 25.8
--- NOTE | 2024-05-02 09:53 | MHC.PC.OV ---
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: No Accompanied by: Self / Same As Patient Allergies clopidogrel [Plavix] Allergy (Intermediate, Verified 05/02/24 10:13) extremity swelling, itch shellfish derived Allergy (Intermediate, Verified 05/02/24 10:13) Swelling simvastatin Allergy (Intermediate, Verified 05/02/24 10:13) Muscle Pain ticlopidine [From Ticlid] Allergy (Intermediate, Verified 05/02/24 10:13) Extremity swelling, itch atorvastatin Adverse Reaction (Intermediate, Verified 05/02/24 10:13) muscle weakness, other propoxyphene [From Darvon] Adverse Reaction (Mild, Verified 05/02/24 10:13) Headache, Migraine Medication List - Last Reconciled 05/02/24 by Lamont Currie PA-C albuterol sulfate 2.5 mg (3 mL) inhalation Q6H PRN 30 days albuterol sulfate 90 mcg/actuation 2 puffs inhalation Q6H aspirin 81 mg PO DAILY carvedilol 9.375 mg (1.5 x 6.25 mg) PO BID cholecalciferol (vitamin D3) 125 mcg PO DAILY diclofenac sodium 1% (Arthritis Pain (diclofenac)) 2 grams topical QID PRN 10 days ezetimibe 10 mg PO DAILY famotidine 20 mg PO DAILY latanoprost 0.005% 1 drp ophthalmic (eye) QPM lisinopril 2.5 mg PO DAILY metformin 1,000 mg PO BID 90 days nebulizers (AeroEclipse II Nebulizer) As directed nirmatrelvir-ritonavir 300 mg (150 mg x 2)-100 mg (Paxlovid) take TWO 150 mg tablets of nirmatrelvir with ONE 100 mg tablet of ritonavir twice daily for 5 days PO nitroglycerin 0.4 mg sublingual Q5M PRN 14 days rosuvastatin 10 mg PO DAILY sitagliptin phosphate (Januvia) 100 mg PO DAILY 90 days tadalafil 10 mg PO DAILY Tobacco use date assessed: 06/01/23 Fall risk assessment: No Falls in past year Last assessed Fall Risk: 05/02/24 Dental Screening Dental Screen Date: 05/02/24 Did you have a dental visit in the last 12 months?: Yes Did you have a dental problem in the last 6 months where you did not have access to dental care?: No Was dental information given to patient?: Patient has dentist HPI f/u DMII HPI Details Patient is a 73-year-old male here today for a f/u visit. Patient has a past medical history significant for type 2 diabetes, hypertension, hyperlipidemia, coronary artery disease, asthma. . . Concerns--> continues to have concerned about his memory and concentration. 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 Did have MRI of brain and see Neurology though no significant findings has been found. ? .. ? Type 2 diabetes:. Patient's type 2 diabetes has been slightly suboptimally controlled. Most recent A1c at 6.0. Dietary indiscretion due to the holidays. ? .. ? Hypertension: Patient reports blood pressures have been stable at home. Denies any headaches, chest pain, shortness of breath. .. CAD: Lipid panel has been acceptable on current dose of statin therapy. Most recently lipid panel shoing excellent control of his LDL. He otherwise denies any chest discomfort, dizziness, shortness of breath. 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 Reviewed labs with patient and noted a slightly elevated white blood cell count. Will recheck CBC in 1 week to trend white blood cell count Laboratory Tests 12/25/23 12/27/23 04/30/24 Unknown 10:56 08:12 WBC 12.1 H RBC 4.51 L Hgb 13.9 L Fasting Glucose 145 H Hgb A1c (Clinic) 6.9 H Cholesterol 125 LDL Cholesterol, C alc 61 Urine Microalbumin 32.0 05/02/24 09:58 WBC RBC Hgb Fasting Glucose Hgb A1c (Clinic) 6.0 Cholesterol LDL Cholesterol, C alc Urine Microalbumin [facility] Medical History Splenic infarct Short-term memory loss Mild cognitive disorder Back pain Diabetes Asthma Elevated cholesterol Myocardial infarction CAD (coronary artery disease) HTN (hypertension) Surgical History H/O foot surgery H/O cataract extraction H/O colonoscopy Hx of heart artery stent H/O arthroscopy Family History Father Medical history unknown Mother COPD (chronic obstructive pulmonary disease) Myocardial infarction CAD (coronary artery disease) Social History Housing: House Alcohol intake: current Alcohol intake frequency: holidays/special occasions only Patient Tobacco Use Status: Former Tobacco user Tobacco use type: Cigarette Cigarette Packs Per Day: 0.5 Years Smoked: 20 e-Cigarette/Vaping Use: Never Used Second Hand Smoke Exposure: No service: Yes Current occupational status: retired Cognitive needs: No Hearing needs: No Vision needs: No Questionnaire Thrive Questionnaire Date Thrive assessed: 06/01/23 AUDIT C Alcohol Use Questionnaire (AUDIT-C) 3. How often do you have six or more drinks on one occasion?: Never Total Score: 0 AMARILYS-7 AMB Questionnaire AMARILYS-7 Date AMARILYS - 7 assessed: 06/01/23 Source: Developed by Drs. Calixto Gold, Daina Escobar, Jeremie Porras and colleagues, with an educational carri from [employer]. Review of Systems Const Denies headache(s) Eyes Denies loss of vision ENT Denies vertigo, Denies dizziness, Denies headache(s) and Denies sore throat Card Denies chest pain, Denies leg edema and Denies lightheadedness Resp Denies cough, Denies hemoptysis and Denies wheezing GI Denies abdominal pain, Denies melena, Denies constipation, Denies diarrhea and Denies vomiting Denies dysuria, Denies urinary frequency and Denies urinary urgency Musc Denies arthralgias, Denies joint swelling, Denies numbness and Denies tingling Neuro Denies Abnormal speech present, Denies behavioral changes, Denies vertigo, Denies dizziness, Denies headache(s), Denies loss of vision, Denies memory loss, Denies numbness and Denies tingling Psych Denies anxiety, Denies behavioral changes, Denies depression, Denies memory loss and Denies panic attacks Sumeet/Lymph Denies easy bleeding and Denies easy bruising Aller/Immun Denies wheezing Physical exam (Primary Care) Vital Signs: Last Vital Signs Pulse 76 05/02/24 09:53 BP 130/72 05/02/24 09:53 Pulse Ox 97 05/02/24 09:53 Oxygen Delivery Method Room Air 05/02/24 09:53 BMI result Body Mass Index 25.8 Tobacco/Smoking Status: Tobacco use Status Tobacco use date assessed 06/01/23 05/02/24 09:56 Patient Tobacco Use Status Former Tobacco user 05/02/24 09:56 Tobacco use type Cigarette 05/02/24 09:56 e-Cigarette/Vaping Use Never Used 05/02/24 09:56 Thrive Assessment: Date of Thrive Assessment Date Thrive assessed 06/01/23 05/02/24 09:56 Const General: healthy appearing, no acute distress, alert and awake Nutritional Appearance: well nourished Orientation/consciousness: oriented to person, oriented to place and oriented to time HENMT Ears: TM's normal bilaterally General nose exam: Normal nasal mucous membranes and turbinates present Eyes Conjunctivae: conjunctivae normal Sclerae: sclerae normal Pupils: Equal, round and reactive pupils present Neck Neck: Yes no lymphadenopathy and Yes no JVD Thyroid: Thyroid normal Carotids: no bruits Resp Effort & Inspection: normal respiratory effort and not tachypneic Auscultation: no crackles, no rales, no rhonchi and no wheezes Cardio Rate: regular rate Rhythm: regular rhythm Heart sounds: no murmurs and normal S1 and S2 GI Palpation (GI): Soft to palpation, nontender, no hepatomegaly and no splenomegaly Auscultation: normal bowel sounds Skin General skin exam: no rashes or lesions noted and dry skin Neuro General: oriented to person, oriented to place and oriented to time Cranial nerves: Yes Equal, round and reactive pupils present Speech: No Abnormal speech present Gait exam (Neuro): Normal gait present Motor exam (neuro): no tremor noted Extrem Right upper extremity: full ROM Left upper extremity: full ROM Right lower extremity: full ROM; no edema Left lower extremity: full ROM; no edema Psych Mental Status: mental status grossly normal Speech and movement: Normal speech and movement present Affect: normal affect Attitude: cooperative Thought process: Normal thought process present Results AMB Hemoglobin A1c AMB Hemoglobin A1c 6.0 % Last Edit by KAYLEIGH Perales on 05/02/24 10:01 Results Reviewed Results Reviewed: Laboratory Last Values Hgb A1c (Clinic) 6.0 % (4.0-6.0) 05/02/24 09:58 Coding Level of Care Code Est Pt Level 4 (82917) Diagnoses Type 2 diabetes mellitus without complication, without long-term current use of insulin E11.9 Diabetes mellitus complication status: without complication 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 transplanted heart: [place] heart Essential hypertension I10 Hypertension type: essential hypertension Leukocytosis, unspecified type D72.829 Leukocytosis type: unspecified Assessment & Plan Assessment & Plan (1) DMII (diabetes mellitus, type 2): Code(s): E11.9 - Type 2 diabetes mellitus without complications Category: Medical Qualifiers: Diabetes mellitus complication status: without complication Diabetes mellitus prison insulin use: without prison use Qualified Code(s): E11.9 - Type 2 diabetes mellitus without complications Plan: Patient's type 2 diabetes well controlled with current med regime. Today's A1c is 6.0. Will continue current med regime. Goal A1c is to remain below 7.0 (2) CAD (coronary artery disease): Code(s): I25.10 - Atherosclerotic heart disease of [place] coronary artery without angina pectoris Category: Medical Qualifiers: Associated angina: without angina Coronary Disease-Associated Artery/Lesion type: [place] artery [place] vs. transplanted heart: [place] heart Qualified Code(s): I25.10 - Atherosclerotic heart disease of [place] coronary artery without angina pectoris Plan: Most recent lipid panel showing excellent control of his total cholesterol and LDL. He otherwise denies any shortness of breath or chest discomforts. Goal LDL to be optimally below 70 (3) HTN (hypertension): Code(s): I10 - Essential (primary) hypertension Category: Medical Qualifiers: Hypertension type: essential hypertension Qualified Code(s): I10 - Essential (primary) hypertension Plan: Patient's blood pressure acceptable today in office. Will continue current antihypertensive medication with goal blood pressure to remain below 140/90 (4) Leukocytosis: Code(s): D72.829 - Elevated white blood cell count, unspecified Category: Medical Qualifiers: Leukocytosis type: unspecified Qualified Code(s): D72.829 - Elevated white blood cell count, unspecified Plan: Noted recent leukocytosis. No clear evidence of infection, no use of steroids recently.. Will recheck CBC in 1 week. Orders: Orders Complete Blood Count no Diff 1 Week D72.829 - Elevated white blood cell count, unspecified Prostate Specific Antigen Scr 6 Months R97.20 - Elevated prostate specific antigen [PSA], Z12.5 - Encounter for screening for malignant neoplasm of prostate Lipid Panel 6 Months I25.10 - Atherosclerotic heart disease of [place] coronary artery without angina pectoris AMB Hemoglobin A1c Today E11.9 - Type 2 diabetes mellitus without complications Microalbumin, Random (w Creat) 6 Months I10 - Essential (primary) hypertension Comprehensive [place]. Panel Fast 6 Months I10 - Essential (primary) hypertension Complete Blood Count no Diff 6 Months E11.9 - Type 2 diabetes mellitus without complications Medications: Discontinued nirmatrelvir-ritonavir 300 mg (150 mg x 2)-100 mg (Paxlovid) Discontinued Reason: Doctor's Order take TWO 150 mg tablets of nirmatrelvir with ONE 100 mg tablet of ritonavir twice daily for 5 days PO 30 ea 0RF U07.1 - COVID-19
== END 2024-05-02 10:35 | disposition home or self-care (01) ==
PROVIDERS: PCP Physician Assistant; Visit Provider Physician Assistant
DX: E11.9 Type 2 diabetes mellitus without complications (principal); I25.10 Atherosclerotic heart disease of native coronary artery without angina pectoris; I10 Essential (primary) hypertension; D72.829 Elevated white blood cell count, unspecified

== ENCOUNTER → 2024-05-02 09:46 | Outpatient (BNVA) | payer MEDICARE, SELFPAY | PROVIDERS: PCP Physician Assistant; Visit Provider Physician Assistant | DX: E11.9 Type 2 diabetes mellitus without complications (principal); I25.10 Atherosclerotic heart disease of native coronary artery without angina pectoris; I10 Essential (primary) hypertension; D72.829 Elevated white blood cell count, unspecified | CPT/HCPCS: 83036; 99212 ==

== ENCOUNTER 2024-05-09 10:40 | Outpatient (REF) | payer MEDICARE, SELFPAY ==
[2024-05-09 11:46] LABS: Hemoglobin 14.3 g/dl (14.0-18.0); Mean Corpuscular HGB Conc 32.5 g/dl (31.0-36.0); Mean Corpuscular Hemoglobin 30.8 pg (27.0-33.0); Mean Corpuscular Volume 94.6 fL (80.0-98.0); Mean Platelet Volume 10.4 fL (9.4-12.4); Platelet Count 273 X10*3/uL (160-400); Red Blood Count 4.65 X10*6/uL (4.60-5.80); Red Cell Distribution Width 11.9 % (11.0-16.0); White Blood Count 8.9 X10*3/uL (4.8-10.8)
== END 2024-05-09 10:41 | disposition home or self-care (01) ==
LOC: HO.LAB 10:40
PROVIDERS: PCP Physician Assistant; Visit Provider Physician Assistant
DX: D72.829 Elevated white blood cell count, unspecified (principal)
CPT/HCPCS: 36415; 85027

== ENCOUNTER 2024-05-10 08:59 | Outpatient (AMB) | payer MEDICARE, SELFPAY ==
--- NOTE | 2024-05-10 08:59 | A.OFFVIS_ITS ---
Intake Visit Reasons: 1 yr f/u - Amnesia/Att & Concentration Intake Note: Patient presents for follow up Allergies clopidogrel [Plavix] Allergy (Intermediate, Verified 05/10/24 08:59) extremity swelling, itch shellfish derived Allergy (Intermediate, Verified 05/10/24 08:59) Swelling simvastatin Allergy (Intermediate, Verified 05/10/24 08:59) Muscle Pain ticlopidine [From Ticlid] Allergy (Intermediate, Verified 05/10/24 08:59) Extremity swelling, itch atorvastatin Adverse Reaction (Intermediate, Verified 05/10/24 08:59) muscle weakness, other propoxyphene [From Darvon] Adverse Reaction (Mild, Verified 05/10/24 08:59) Headache, Migraine HPI Comments Details: 73y/o male calls for follow up of short term memory issues. He did cognitive therapy and it has helped him significantly. No new complaints His sleep is good. He denies any head injury . He denies depression and anxiety. [facility] Medical History Splenic infarct Short-term memory loss Mild cognitive disorder Back pain Diabetes Asthma Elevated cholesterol Myocardial infarction CAD (coronary artery disease) HTN (hypertension) Surgical History H/O foot surgery H/O cataract extraction H/O colonoscopy Hx of heart artery stent H/O arthroscopy Family History Father Medical history unknown Mother COPD (chronic obstructive pulmonary disease) Myocardial infarction CAD (coronary artery disease) Social History Housing: House Alcohol intake: current Alcohol intake frequency: holidays/special occasions only Patient Tobacco Use Status: Former Tobacco user Tobacco use type: Cigarette Cigarette Packs Per Day: 0.5 Years Smoked: 20 e-Cigarette/Vaping Use: Never Used Second Hand Smoke Exposure: No service: Yes Current occupational status: retired Cognitive needs: No Hearing needs: No Vision needs: No Physical Exam Const General: cooperative and comfortable Psych Mental Status: mental status grossly normal Affect: normal affect Telehealth Telehealth Telehealth Platform: Telephone Location of provider rendering services: practice address Location of patient: address on file Patient Identification confirmed using: Name, : Yes Telehealth method: voice only Patient verbally consented to treatment: Yes Patient verbally consented to billing insurance company: Yes Patient informed of any privacy concerns related to visit: Yes Assessment & Plan Assessment & Plan (1) Mild cognitive disorder: Comment: age related ? Code(s): F09 - Unspecified mental disorder due to known physiological condition Category: Medical Plan F/u as needed Discussed about various mind games and cognitive exercises. Coding Level of Care Code Tele Est Pt Level 3 (58524) Diagnoses Mild cognitive disorder F09 Time Spent (min) 16
== END 2024-05-10 15:11 | disposition home or self-care (01) ==
LOC: HO.HSMS 08:59
PROVIDERS: PCP Physician Assistant; Visit Provider Psychiatry & Neurology Neurology
DX: G31.84 Mild cognitive impairment of uncertain or unknown etiology (principal)
CPT/HCPCS: 99442

== ENCOUNTER 2024-10-17 08:50 | Outpatient (AMB) | payer MEDICARE, SELFPAY ==
--- NOTE | 2024-10-17 09:00 | MHC.PC.OV ---
Vital Signs 10/17/24 09:02 Height 5 ft 6 in Weight 155 lb 4 oz BMI 25.1 BP 132/60 Blood Pressure Location Lt brachial Position Sitting Pulse 73 Pulse Source Pulse Oximeter Temp 97.8 F Temp Source Temporal Artery Scan Pulse Oximetry (%) 97 Oxygen Delivery Method Room Air Intake Visit Reasons: congestion on his lungs Intake Note: Patient is here to follow up on Congestion in his lungs. Cigar Bander Hand Required: No Carrot Tier: Not Required per policy Accompanied by: Self / Same As Patient Allergies clopidogrel [Plavix] Allergy (Intermediate, Verified 10/17/24 09:21) extremity swelling, itch shellfish derived Allergy (Intermediate, Verified 10/17/24 09:21) Swelling simvastatin Allergy (Intermediate, Verified 10/17/24 09:21) Muscle Pain ticlopidine [From Ticlid] Allergy (Intermediate, Verified 10/17/24 09:21) Extremity swelling, itch atorvastatin Adverse Reaction (Intermediate, Verified 10/17/24 09:21) muscle weakness, other propoxyphene [From Darvon] Adverse Reaction (Mild, Verified 10/17/24 09:21) Headache, Migraine Medication List - Last Reconciled 10/17/24 by Oscar Black MD albuterol sulfate 2.5 mg (3 mL) inhalation Q6H PRN 30 days albuterol sulfate 90 mcg/actuation 2 puffs inhalation Q6H aspirin 81 mg PO DAILY carvedilol 9.375 mg (1.5 x 6.25 mg) PO BID cholecalciferol (vitamin D3) 125 mcg PO DAILY diclofenac sodium 1% (Arthritis Pain (diclofenac)) 2 grams topical QID PRN 10 days ezetimibe 10 mg PO DAILY famotidine 20 mg PO DAILY latanoprost 0.005% 1 drp ophthalmic (eye) QPM lisinopril 2.5 mg PO DAILY metformin 1,000 mg PO BID 90 days nebulizers (AeroEclipse II Nebulizer) As directed nitroglycerin 0.4 mg sublingual Q5M PRN 14 days rosuvastatin 10 mg PO DAILY sitagliptin phosphate (Januvia) 100 mg PO DAILY 90 days tadalafil 10 mg PO DAILY Tobacco use date assessed: 10/17/24 Fall risk assessment: No Falls in past year Last assessed Fall Risk: 10/17/24 Dental Screening Dental Screen Date: 10/17/24 Did you have a dental visit in the last 12 months?: Yes Did you have a dental problem in the last 6 months where you did not have access to dental care?: No Was dental information given to patient?: Patient has dentist HPI congestion on his lungs HPI Details Patient presents for a sick visit. Reporting symptoms of sinus congestion, sore throat and difficulty swallowing. Low-grade fever. No family member is sick. No recent travel. Patient reports symptoms of malaise and fatigue. [facility] Medical History (Updated 05/10/24 @ 09:31 by Regina Stratton MD) Splenic infarct Short-term memory loss Mild cognitive disorder Back pain Diabetes Asthma Elevated cholesterol Myocardial infarction CAD (coronary artery disease) HTN (hypertension) Surgical History H/O esophagogastroduodenoscopy (~12/13/23) H/O foot surgery H/O cataract extraction H/O colonoscopy (~04/03/20) Hx of heart artery stent H/O arthroscopy Family History Father Medical history unknown Mother COPD (chronic obstructive pulmonary disease) Myocardial infarction CAD (coronary artery disease) Social History Housing: House Alcohol intake: current Alcohol intake frequency: holidays/special occasions only Patient Tobacco Use Status: Former Tobacco user Tobacco use type: Cigarette Cigarette Packs Per Day: 0.5 Years Smoked: 20 e-Cigarette/Vaping Use: Never Used Second Hand Smoke Exposure: Yes service: Yes Current occupational status: retired Cognitive needs: No Hearing needs: No Vision needs: No Questionnaire PHQ-9 Over the last 2 weeks, how often have you been bothered by any of the following problems? 1. Little interest or pleasure in doing things: not at all 2. Feeling down, depressed, or hopeless: not at all 3. Trouble falling or staying asleep, or sleeping too much: not at all 4. Feeling tired or having little energy: several days 5. Poor appetite or overeating: not at all 6. Feeling bad about yourself - or that you are a failure or have let yourself or your family down: not at all 7. Trouble concentrating on things, such as reading the newspaper or watching television: more than half the days 8. Moving or speaking so slowly that other people could have noticed. Or the opposite - being so fidgety or restless that you have been moving around a lot more than usual: not at all 9. Thoughts that you would be better off or of hurting yourself in some way: not at all Total score: 3 Depression Screening Interpretation: Positive Depression Screening Done: Yes Source: Developed by Drs. Calixto Gold, Daina Escobar, Jeremie Porras and colleagues, with an educational carri from [employer] acquired by [employer]. Thrive Questionnaire Date Thrive assessed: 10/17/24 I am a: Patient What is your living situation today?: I have a steady place to live Within the past 12 months, did the food you bought not last and you didn't have the money to get more?: Never true Within the past 12 months, did you worry whether your food would run out before you got money to buy more?: Never true Do you have trouble paying for medicines?: No Do you have trouble getting transportation to medical appointments?: No Do you have trouble paying your heating and electricity bill?: No Do you have trouble taking care of your child, family member or friend?: No Do you have trouble with day-to-day activities such as bathing, preparing meals, shopping, managing finances, etc.?: No Are you currently unemployed and looking for a job?: No Are you interested in more education?: No Please select the resources that you would like help with: None Currently or been in a relationship where the following occur: No concerns reported THRIVE Score: 0 AUDIT C Alcohol Use Questionnaire (AUDIT-C) 1. How often do you have a drink containing alcohol?: Monthly or less 2. How many drinks containing alcohol do you have on a typical day when you are drinking?: 1 or 2 3. How often do you have six or more drinks on one occasion?: Never Total Score: 1 AMARILYS-7 AMB Questionnaire AMARILYS-7 Date AMARILYS - 7 assessed: 10/17/24 Feeling nervous, anxious, or on edge: 0 = Not at all Not being able to stop or control worryin = Not at all Worrying too much about different things: 0 = Not at all Trouble relaxin = Not at all Being so restless that it is hard to sit still: 0 = Not at all Becoming easily annoyed or irritable: 0 = Not at all Feeling afraid as if something awful might happen: 0 = Not at all Total AMARILYS-7 score (0-4 normal; 5-9 mild; 10-14 moderate; 15-21 severe): 0 Source: Developed by Drs. Calixto Gold, Daina Escobar, Jeremie Porras and colleagues, with an educational carri from [employer] acquired by [employer]. Physical exam (Primary Care) Vital Signs: Last Vital Signs Temp 97.8 F 10/17/24 09:02 Pulse 73 10/17/24 09:02 BP 132/60 10/17/24 09:02 Pulse Ox 97 10/17/24 09:02 Oxygen Delivery Method Room Air 10/17/24 09:02 BMI result Body Mass Index 25.1 Tobacco/Smoking Status: Tobacco use Status Tobacco use date assessed 10/17/24 10/17/24 09:02 Patient Tobacco Use Status Former Tobacco user 10/17/24 09:02 Tobacco use type Cigarette 10/17/24 09:02 e-Cigarette/Vaping Use Never Used 10/17/24 09:02 PHQ-9: PHQ-9 Score PHQ-9: Total score 3 10/17/24 09:02 Depression Screening Interpretation: Positive Thrive Assessment: Date of Thrive Assessment Date Thrive assessed 10/17/24 10/17/24 09:02 Currently or been in a relationship where the following occur: No concerns reported Const General: cooperative and healthy appearing Nutritional Appearance: well nourished Orientation/consciousness: patient oriented x3 Limitations: no limitations HENMT Head: Yes normal to inspection Eyes General: appearance normal, both eyes and all related structures Neck Neck: Yes normal visual inspection Chest Chest palpation & inspection: normal palpation of entire chest wall Resp Effort & Inspection: normal respiratory effort Neuro General: patient oriented x3 Results AMB Hemoglobin A1c AMB Hemoglobin A1c 6.4 % Last Edit by KAYLEIGH Minor on 10/17/24 09:15 Coding Level of Care Code Est Pt Level 3 (91434) Complex EM visit Add On G2211 Diagnoses Upper respiratory tract infection due to 2019 novel coronavirus U07.1; J06.9 Assessment & Plan Assessment & Plan (1) Upper respiratory tract infection due to 2019 novel coronavirus: Code(s): U07.1 - COVID-19; J06.9 - Acute upper respiratory infection, unspecified Plan: Antibiotics ordered. Increase fluid intake. Tylenol for aches and pains. If symptoms worsen, follow-up here for a recheck. Orders: Orders AMB Hemoglobin A1c Today E11.9 - Type 2 diabetes mellitus without complications
--- OUTSIDE RECORDS SUMMARY | 2024-10-17 09:00 | XMS_ITS | Patient Health Record ---
Author Organization [facility] Address [address] [place] [address] Care Team Providers Care Inspector Eyeglass Name Role Phone DELANEY ALEXIS Primary Care Provider Calixto Arteaga [facility] [phone] Allergies Allergen (clinical drug ingredient) Drug/Non Drug Allergy documented on EMR Reaction Allergy Type Onset Date Status clopidogrel Plavix Unknown Drug Allergy Activ e Darvon Unknown Drug Allergy Active atorvastatin Atorvastatin Calcium Unknown Drug Allergy Active Shellfish (FN) shell fish (uncoded) Unknown Allergy Active Ticlid Unknown Drug Allergy Active Results Component Value Reference Range Notes Pathology Reviewed date:12/19/2023 11:54:06 PM Interpretation: Performing Lab:[facility], [address] [place] [id number] Notes/Report: Name: Deepak Gonsalez Almita Age/Sex: 73/M : 1950 Unit#: [id number] Attend Dr: Calixto Goncalves MD Re12/13/23 Status : [facility] Location: [facility] Disch: SPEC : [id number] RECD : 12/13/23 STATUS: MALLIKA ZAPATA NUM: [id number] QING: 12/13/231206 [facility] DR: Calixto Goncalves MD ENTERED: 12/13/2313 43 SP TYPE: Surgical OTHR DR: Lamont Currie PA-C ORDERED: HE Stain/3, Gross Micro L4, Special st. 2, AB/PAS Diagnosis Esophagogastric junc tion, at 35 cm, biopsy: Squamocolumnar mucosa with acute erosive esophagitis; negativ e for intestinal metaplasia and dysplasia. Clinical History Pre-Op Dx: Hx/o eros abdullahi esophagitis Post-Op Dx: Hiatal h ernia, reflux, gastric retention Microscopic Description Microscopic sections reviewed. AB/PAS is negative for intestinal metaplasia. Control stains appropriately. Material Received EG junction bx's @ 35 cm Gross Description Received in formalin labeled ?EG junction bx's at 35 cm? are 6 glistening, gama-pink irregular tissue fra gments ranging from 0.25-0.3 cm, submitted in toto in a cassette labeled A. CEDS Special studies orde red and performed: AB/PAS stains on A1. Copies To: Lamont Currie PA-C [address] [place] [address] [address] [place] [address] Calixto Goncalves MD [facility] [address] [place] [address] CONTINUED ON NEXT PAGE Name: Deepak Gonsalez Age/Sex: 73/M : 1950 Unit#: [id number] Attend Dr: Calixot Goncalves MD Re12/13/23 Status : [facility] Location: [facility] Disch: SPEC : [id number] RECD : 12/13/23-1328 STATUS: HERSONAsiya BENNY NUM: [id number] QING: 12/13/23-1206 [facility] DR: Calixto Goncalves MD ENTERED: 12/13/23-13 43 SP TYPE: Surgical OTHR DR: Lamont Currie PA-C ORDERED: GERBER Stain/3, Gross Micro L4, Special st. 2, AB/GARETH Signed (si gnpetrona on file) Tangela Cynthia 12/14/23 1646 END OF REPORT NM gastric emptying study Reviewed date:04/30/2024 11:02:46 AM Interpretation: Performing Lab: Notes/Report: [address] [address] Nuclear Medicine Report Signed Patient: Deepak Gonsalez MR#: [id number] 082 : 1950 Acct:[id number] Age/Sex: 73 / M ADM Date: 01/18/24 Loc: [facility] Attending Dr: Calixto Goncalves MD Ordering Physician: Calixto Goncalves MD Date of Service: 01/18/24 Procedure(s): NM gastric emptying study Accession Number(s): [id number] cc: Lamont Currie PA-C; Calixto Goncalves MD EXAMINATION: RADIONUCLIDE SOLID FOOD GASTRIC EMPTYING 4-HOUR STUDY CLINICAL INFORMATION: Retained food in stomach. COMPARISON: No previous gastric emptying study is available for comparison. TECHNIQUE: A standard meal consisting of 4 oz of Egg Beaters brand tagged with 150 microcuries Tc-99m Sulfur Colloid, 8 oz water and 2 slices of toast with jelly was administered orally to the patient. Images were obtained using a dual head gamma camera in the anterior and posterior projections over of the stomach immediately post ingestion and at hourly intervals up to 3 hours post ingestion. Images were not obtained at 4 hours due to the minimal retention at 3 hours. The anterior and posterior counts at each time interval were averaged using the geometric mean and expressed as percentage of the immediate post ingestion counts. FINDINGS: There is good visualization of activity in the stomach immediately post ingestion. As the study progresses, there is good clearance of activity from the stomach and visualization of progressively increasing small bowel activity. By the end of the study, there is almost no retention noted in the stomach. Retention in the stomach at each time interval was: 1 hour 62% (normal 37%-90%) 2 hours 10% (normal 30%-60%) 3 hours 4% 4 hours (Not Obtained) (normal 0%-10%) NM/NC gastric emptying study IMPRESSION: Normal solid food gastric emptying study. 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 COMPARISON: No previous gastric emptying study is available for comparison. TECHNIQUE: A standard meal cons isting of 4 oz of Egg Beaters brand tagged with 150 microcuries Tc-99m S ulfur Colloid, 8 oz water and 2 slices of toast with jelly was admin istered orally to the patient. Images were obtained using a dual head ga mma camera in the anterior and posterior projections over of the stomach immediately post ingestion and at hourly intervals up to 3 hours post ingestion. Images were not obtained at 4 hours due to th e minimal retention at 3 hours. The anterior and posterior counts at each time interval were averaged using the geometric mean and e xpressed as percentage of the immediate post ingestion counts. FINDINGS: There is good visual ization of activity in the stomach immediately post ingestion. As the st udy progresses, there is good clearance of activity from the stomach and visualization of progressively increasing small bowel activity. By t he end of the study, there is almost no retention noted in the stomach. Retention in the sto mach at each time interval was: 1 hour 62% (normal 37%-90%) 2 hours 10% (normal 30%-60%) 3 hours 4% 4 hours (Not Obtaine d) (normal 0%-10%) N M/NM gastric emptying study IMPRESSION: Normal solid food ga stric emptying study. Gastric emptying bill dy grading per JNMT Consensus Recommendations in 2008: https://tech.snmjournals.org/co ntent/44 Grade 1 (mild retent ion): 11-20% at 4 hours Grade 2 (moderate re tention): 21-35% at 4 hours Grade 3 (severe rete ntion): 36-50% at 4 hours Grade 4 (very severe retention): >50% retention at 4 hours Electronically león d by: Phoenix Mascorro MD 02/06/2024 04:41 PM EDT RP Dictated By: Phoenix Avendano MD Signed By: <Electron icarey signed by Phoenix Mascorro MD in OV> 02/06/24 1641 DD/ 0803 TD/TT: 01/18/24 1115 Ground Service Equipment Mechanic: RR Reason For Referral No Information Medications Medication SIG (Take, Route, Frequency, Duration) Notes Start Date End Date Status Nitroglycerin 0.4 MG Sublingual as neede d for chest pain Active Coreg 6.25 MG 1 1/2 tablet with fo od Orally Twice a day Active Rosuvastatin Calcium 10 MG 1 tablet Oral ly Once a day for 30 day(s) Active Tadalafil 5 MG TAKE ONE TABLET BY M OUTH EVERY DAY Oral for 30 Active metFORMIN HCl 1000 MG 1 tablet with meal s Orally Twice a day Active Famotidine 40 MG 1 Orally Twice a day for 90 days 12/13/2023 Active Lisinopril 2.5 MG 1 tablet Orally Once a day Active Omeprazole 20 MG Oral for 90 U nknown Latanoprost 0.005 % 1 drop into affected eye in the evening Ophthalmic each eye at hs Active Aspirin 81 MG 1 tablet Orally Once a day Active Ezetimibe 10 MG Oral for 90 Ac tive Carvedilol 6.25 MG Oral for 90 Active Januvia 100 MG Oral for 90 Act abdullahi Immunizations Vaccine Route Administration Date Status Comme nts Influenza Unknown 04/28/2023 Administered Problems Problem Type SNOMED Code ICD Code Onset Dates Problem Status W/U Status Risk Notes Problem Gastro-esophageal reflux disease without esophagitis (073374058) Gastro-esophageal reflux disease without esophagitis (K21.9) Active confirmed Problem 333872605 Encounter for screening for malignant neoplasm of colon (Z12.11) Active confirmed Problem 087128389 History of adenomatous polyp of colon (Z86.010) Active confirmed Problem 35153694 Change in bowel habits (R19.4) Active confirmed Problem Gastroesophageal reflux disease (611553424) Gastroesophageal reflux disease (K21.9) Active confirmed Problem 390215975187484 Preprocedural examination (Z01.818) Active confirmed Problem Hiatal hernia (89254112) Hiatal hernia (K44.9) Active confirmed Problem 915306347 Long-term use of aspirin therapy (Z79.82) Active confirmed Problem Erosive esophagitis (87692580) Erosive esophagitis (K22.10) Active confirmed Problem Belching (550765767) Belching (R14.2) Active confirmed Problem 82170946 Diarrhea, unspecified type (R19.7) Active confirmed Problem 60728048 Upper abdominal pain (R10.10) Active confirmed Problem Retained food in stomach (K31.89) Active confirmed Problem 736680771 Gastroesophageal reflux disease, unspecified whether esophagitis present (K21.9) Active confirmed Vital Signs Blood pressure diastolic 00 mm Hg 04/30/2024 Height 66 in 04/30/2024 Blood pressure systolic 00 mm Hg 04/30/2024 Weight 152 lbs 04/30/2024 BMI 24.53 kg/m2 04/30/2024 Encounters Encounter Location Date Provider Diagnosis [facility] [place] [address] [place] [phone] 12/13/2023 Calixto Goncalves Gastro-esophageal re flux disease without esophagitis K21.9 and Hiatal hernia K44.9 [facility] [address] [place] [phone] 04/30/2024 Calixto Goncalves History of adenomato us polyp of colon Z86.010 ; Gastroesophageal reflux disease, unspecified whether esophagitis present K21.9 and Encounter for screening for malignant neoplasm of colon Z12.11 [facility] [address] [place] [phone] 12/13/2023 Calixto Goncalves Retained food in sto mach K31.89 Assessments Encounter Date Diagnosis (ICD Code) Assessment Notes Treatment Notes Treatment Clinical Notes Section Notes 12/13/2023 Gastro-esophageal reflux disease without esophagitis (ICD-10 - K21.9) 12/13/2023 Hiatal hernia (ICD-10 - K44.9) 04/30/2024 History of adenomatous polyp of colon (ICD-10 - Z86.010) Overall, Deepak appears quite well. his upper GI symptoms seem to be quite improved and stable on his current regimen of famotidine and decreasing caffeine consumption. I did advise him to continue this plan. I advised him that I don't think he would need any further upper endoscopies as long as things remained stable. We did review the normal result of the gastric emptying study as well. The small amount of gastric retention seen at the time of endoscopy could be related to his underlying diabetes and diabetes medication, despite the normal gastric emptying study. I don't think any further intervention is required in that regard at this time since he is otherwise asymptomatic. We did review that he'll be due for a followup colonoscopy toward the latter part of 2024. I shall give him an office visit to see me in one year at which time we can schedule the colonoscopy For either the end of next year or the beginning of 2025. I did advise him to contact me prior to that if he has any problems or questions I can be of assistance with. Deepak was comfortable with this plan. Thank you again for allowing me to participate in Deepak's care. I shall continue to keep you advised of his progress. 04/30/2024 Gastroesophageal reflux disease, unspecified whether esophagitis present (ICD-10 - K21.9) Continue the Famotidine twice a day, minimize caffeine, watch diet, etc. to help decrease reflux and belching Overall, Deepak appears quite well. his upper GI symptoms seem to be quite improved and stable on his current regimen of famotidine and decreasing caffeine consumption. I did advise him to continue this plan. I advised him that I don't think he would need any further upper endoscopies as long as things remained stable. We did review the normal result of the gastric emptying study as well. The small amount of gastric retention seen at the time of endoscopy could be related to his underlying diabetes and diabetes medication, despite the normal gastric emptying study. I don't think any further intervention is required in that regard at this time since he is otherwise asymptomatic. We did review that he'll be due for a followup colonoscopy toward the latter part of 2024. I shall give him an office visit to see me in one year at which time we can schedule the colonoscopy For either the end of next year or the beginning of 2025. I did advise him to contact me prior to that if he has any problems or questions I can be of assistance with. Deepak was comfortable with this plan. Thank you again for allowing me to participate in Deepak's care. I shall continue to keep you advised of his progress. 12/13/2023 Retained food in stomach (ICD-10 - K31.89) 04/30/2024 Encounter for screening for malignant neoplasm of colon (ICD-10 - Z12.11) Overall, Deepak appears quite well. his upper GI symptoms seem to be quite improved and stable on his current regimen of famotidine and decreasing caffeine consumption. I did advise him to continue this plan. I advised him that I don't think he would need any further upper endoscopies as long as things remained stable. We did review the normal result of the gastric emptying study as well. The small amount of gastric retention seen at the time of endoscopy could be related to his underlying diabetes and diabetes medication, despite the normal gastric emptying study. I don't think any further intervention is required in that regard at this time since he is otherwise asymptomatic. We did review that he'll be due for a followup colonoscopy toward the latter part of 2024. I shall give him an office visit to see me in one year at which time we can schedule the colonoscopy For either the end of next year or the beginning of 2025. I did advise him to contact me prior to that if he has any problems or questions I can be of assistance with. Deepak was comfortable with this plan. Thank you again for allowing me to participate in Deepak's care. I shall continue to keep you advised of his progress. Plan Of Treatment Pending Test Test Name Order Date CELIAC PANEL #10 05/17/2023 NUC GASTRIC ANTRUM EMPTYING 12/13/2023 US abdomen complete 05/17/2023 Future Test Test Name Order Date COLONOSCOPY 02/19/2015 COLONOSCOPY 03/03/2020 UPPER GI ENDOSCOPY 05/17/2023 UPPER GI ENDOSCOPY 10/03/2023 Next Appt Details Provider Name:Calixto Goncalves , 04/30/2025 01:00:00 PM, [address], [address], [place], [address], Insurance Providers Payer Name Payer Address Payer Phone Subscriber Number Group Number Insured Name Patient Relationship to Insured Coverage Start Date Coverage End Date [facility] [address] [place], [place] [id number] [phone] [id number] DEEPAK GONSALEZ Self - patient is the insured Medical (General) History Medical History History ICD Code Screening colonoscopy 2003--3 small tubular adenomas removed--he was also noted to have some moderate sigmoid diverticulosis and internal hemorrhoids Hyperlipidemia HTN Denies CVA,Lung disease,renal disease CA x 2- in 2000(3 stents marcus giovana) and 2003(1 stent placed)--no problems since 2003--has negative ETT's periodically NIDDM Glaucoma Colonoscopy in 04/2015 with a small tubu lar adenoma Colonoscopy in 03/2020 with several smal l tubular adenomas COVID 2022 Slightly elevated PSA follow ed by a urologist in [place]. He has had a MRI of the prostate but no biopsy as yet. Upper endoscopy in May revealed areas of erosive esophagitis and a moderate sized hiatal hernia. Biopsies were negative for Greenwood's esophagus. Duodenal biopsies were negative for celiac disease and gastric biopsies were negative for H. pylori. EGD 11/2023 healed esophagiit s, and biopsies negative for Greenwood's esophagus; small amount of gastric retention but a subsequent nuclear medicine gastric emptying study was normal in December of 2023. Surgical History Surgery Date(Month/Year) Skin lesion removed from right knee Foot surgery cataract surgery
--- OUTSIDE RECORDS SUMMARY | 2024-10-17 09:00 | XMS_ITS ---
Author Organization [facility] Address [address] [place] [address] Care Team Providers Care Pigment Mixer Name Role Phone DELANEY ALEXIS Primary Care Provider Calixto Arteaga [phone] REASON FOR VISIT erosive esophagitis,hiatal hernia,belching Problems Problem Type SNOMED Code ICD Code Onset Dates Problem Status W/U Status Risk Notes Problem Gastro-esophagea l reflux disease without esophagitis (988855047) Gastro-esophage al reflux disease without esophagitis (K21.9) Active confirmed Encounters Encounter Location Date Provider Diagnosis [facility] [place] [address] [place] [phone] 12/13/2023 Calixto Goncalves Gastro-esophageal reflux disease without esophagitis K21.9 and Hiatal hernia K44.9 Assessments Encounter Date Diagnosis (ICD Code) Assessment Notes Treatment Notes Treatment Clinical Notes Section Notes 12/13/2023 Gastro-esophagea l reflux disease without esophagitis (ICD-10 - K21.9) 12/13/2023 Hiatal hernia (ICD-10 - K44.9) Plan Of Treatment Next Appt Details Provider Name:Calixto Goncalves , 04/30/2025 01:00:00 PM, [address], [address], [place], [address], Progress Notes * LEXA GONSALEZOB:1950 (73 yo M)Acc No.[id number]:12/13/2023 EGD/MAC Patient:?PATRIC GONSALEZ Provider:?Calixto Goncalves MD :1950???Age:73 Y???Sex:Male Michel e:12/13/2023 Address:[address] [place], [place] [id number] Pcp:DELANEY ALEXIS Subjective: * Chief Complaints: * ???1. Erosive esophagitis,hi atal hernia,belching. * Medical History:? Objective: * Vitals:? Assessment: * Assessment: 1.?Gastro-esophageal reflux disease without esophagitis - K21.9 (Primary)???2.?Hiatal hernia - K44.9??? Plan: * Treatment: * Procedure Codes:?65632 UPPER GI ENDOSCOPY, BIOPSY * * The named appointment provid er may or may not be the originator of this progress note, and it is not deemed complete until electronically signed by the appointment provider. Sign off status: Pending * Provider:?Calixto Goncalves MD Date:? 024 Generated for Eloisa crow/Tiffanie/eTransmitting on:?10/17/2024 09:00 AM EDT
--- OUTSIDE RECORDS SUMMARY | 2024-10-17 09:00 | XMS_ITS ---
Author Organization [facility] Address [address] [place] [address] Care Team Providers Care Director Of Sleep Name Role Phone VANESA, KARTIK Primary Care Provider Calixto Arteaga Unavailable [phone] Allergies Allergen (clinical drug ingredient) Drug/Non Drug Allergy documented on EMR Reaction Allergy Type Onset Date Status clopidogrel Plavix Unknown Drug Allergy Activ e Darvon Unknown Drug Allergy Active atorvastatin Atorvastatin Calcium Unknown Drug Allergy Active Shellfish (FN) shell fish (uncoded) Unknown Allergy Active Ticlid Unknown Drug Allergy Active REASON FOR VISIT Patient presents today for Erosive esophagitis,hiatal hernia,belching Medications Medication SIG (Take, Route, Frequency, Duration) Notes Start Date End Date Status Famotidine 40 MG 1 Orally Twice a day for 90 days 12/13/2023 Active Omeprazole 20 MG Oral for 90 U nknown Carvedilol 6.25 MG Oral for 90 Active Januvia 100 MG Oral for 90 Act abdullahi Nitroglycerin 0.4 MG Sublingual as neede d for chest pain Active Coreg 6.25 MG 1 1/2 tablet with fo od Orally Twice a day Active Rosuvastatin Calcium 10 MG 1 tablet Oral ly Once a day for 30 day(s) Active Tadalafil 5 MG TAKE ONE TABLET BY M OUTH EVERY DAY Oral for 30 Active Ezetimibe 10 MG Oral for 90 Ac tive metFORMIN HCl 1000 MG 1 tablet with meal s Orally Twice a day Active Lisinopril 2.5 MG 1 tablet Orally Once a day Active Latanoprost 0.005 % 1 drop into affected eye in the evening Ophthalmic each eye at hs Active Aspirin 81 MG 1 tablet Orally Once a day Active Vital Signs Blood pressure systolic 00 mm Hg 04/30/20 24 Blood pressure diastolic 00 mm Hg 024 Height 66 in 04/30/2024 Weight 152 lbs 04/30/2024 BMI 24.53 kg/m2 04/30/2024 Encounters Encounter Location Date Provider Diagnosis [facility] [address] [place] [address] 04/30/2024 Calixto Goncalves History of adenomato us polyp of colon Z86.010 ; Gastroesophageal reflux disease, unspecified whether esophagitis present K21.9 and Encounter for screening for malignant neoplasm of colon Z12.11 Assessments Encounter Date Diagnosis (ICD Code) Assessment Notes Treatment Notes Treatment Clinical Notes Section Notes 04/30/2024 History of adenomatous polyp of colon [...] keep you advised of his progress. 04/30/2024 Encounter for screening for malignant neoplasm [...] advised of his progress. Plan Of Treatment Treatment Notes Assessment Notes Gastroesophageal reflux dise ase, unspecified whether esophagitis present Continue the Famotidine twice a day, minimize caffeine, watch diet, etc. to help decrease reflux and belching Next Appt Details Follow Up: 1 Year, Reason: Provider Name:Calixto Catalina Goncalves , 04/30/2025 01:00:00 PM, [address] [facility], Suite [facility], [place], [address], Progress Notes * LEXA GONSALEZOB:1950 (73 yo M)Acc No.[id number]:04/30/2024 Progress Notes Patient:?DEEPAK GONSALEZ Provider:?Calixto Goncalves MD :1950???Age:73 Y???Sex:Male Michel e:04/30/2024 Address:[address] [place], [place] [id number] Pcp:DELANEY ALEXIS Subjective: * Chief Complaints: * ???Patient presents today fo r Erosive esophagitis,hiatal hernia,belching * HPI: ???incontinence:? I saw Deepak in followup today in regard to his chronic reflux, some evidence of gastric retention, and discussion of colorectal cancer screening. ?I last saw Deepak in November, at which time he underwent a followup upper endoscopy. This revealed healing of his previous esophagitis and biopsies from the gastroesophageal junction were negative for any sign of Greenwood's esophagus. There was a small amount of gastric retention but no sign of any gastric outlet obstruction. A subsequent nuclear medicine gastric emptying study in December was within normal limits. He does report that his belching has significantly improved as well as he has remained on a famotidine 40 mg twice a day and has also cut down on his caffeine consumption. He enjoys a good appetite and denies any significant heartburn or dysphagia at the present time. He denies any abdominal pain, jaundice, nor unintentional weight loss. His bowel movements have been regular and without any signs of bleeding. * ROS:?General/Constitutional:?Change in appetite?denies.?Chills?denies.?Fatigue?denies.?Ophthalmologic:?Comments?all negative.?ENT:?Comments?all negative.?Respiratory:?hemoptysis?denies.?Cough?denies.?Cardiovascular:?Chest pain?denies.?Orthopnea?denies.?Gastrointestinal:?Comments?See HPI for details.?Genitourinary:?Hematuria?denies.?Dysuria?denies.?Musculoskeletal:?Painful joints?denies.?Weakness?denies.?Skin:?Itching?denies.?Rash?denies.?Neurologic:?Headache?denies.?Seizures?denies.?Psychiatric:?Comments?all negative.? * Medical History:? * Surgical History:?Skin lesio n removed from right knee Foot surgery cataract surgery * Hospitalization/Major Diagno stic Procedure:?No Hospitalization History. * Family History:?Father: dece ased, pacemaker, diagnosed with HTN (hypertension), Heart disease.?Mother: , [place], PACEMAKER, DIABETES, diagnosed with Diabetes, Heart disease.?Siblings: alive.? No colorectal cancer except in a maternal uncle. No history of liver cancer. No history of inflammatory bowel disease or celiac disease. * Social History:?Tobacco Use:?Tobacco Use/Smoking?Are you a: nonsmoker.?Drugs/Alcohol:?Alcohol Screen?Points: 0, Interpretation: Negative.?Miscellaneous:?Marital status: . Occupation: Retired. ???Nonsmoker; no sig alcohol. * Medications:?TakingmetFORMIN HCl 1000 MG Tablet 1 tablet with meals Orally Twice a dayLisinopril 2.5 MG Tablet 1 tablet Orally Once a dayLatanoprost 0.005 % Solution 1 drop into affected eye in the evening Ophthalmic each eye at hsAspirin 81 MG Tablet 1 tablet Orally Once a dayNitroglycerin 0.4 MG Tablet Sublingual Sublingual as needed for chest painCoreg 6.25 MG Tablet 1 1/2 tablet with food Orally Twice a dayRosuvastatin Calcium 10 MG Tablet 1 tablet Orally Once a dayTadalafil 5 MG Tablet TAKE ONE TABLET BY MOUTH EVERY DAY Oral Ezetimibe 10 MG Tablet Oral Carvedilol 6.25 MG Tablet Oral Januvia 100 MG Tablet Oral Famotidine 40 MG Tablet 1 Orally Twice a dayTaking metFORMIN HCl 1000 MG Tablet 1 tablet with meals Orally Twice a dayTaking Lisinopril 2.5 MG Tablet 1 tablet Orally Once a dayTaking Latanoprost 0.005 % Solution 1 drop into affected eye in the evening Ophthalmic each eye at hsTaking Aspirin 81 MG Tablet 1 tablet Orally Once a dayTaking Nitroglycerin 0.4 MG Tablet Sublingual Sublingual as needed for chest painTaking Coreg 6.25 MG Tablet 1 1/2 tablet with food Orally Twice a dayTaking Rosuvastatin Calcium 10 MG Tablet 1 tablet Orally Once a dayTaking Tadalafil 5 MG Tablet TAKE ONE TABLET BY MOUTH EVERY DAY Oral Taking Ezetimibe 10 MG Tablet Oral Taking Carvedilol 6.25 MG Tablet Oral Taking Januvia 100 MG Tablet Oral Taking Famotidine 40 MG Tablet 1 Orally Twice a dayDiscontinuedFamotidine 20 MG Tablet 1 tablet as needed Orally Twice a day, Notes: otcDiscontinued Famotidine 20 MG Tablet 1 tablet as needed Orally Twice a day, Notes: otcUnknownOmeprazole 20 MG Capsule Delayed Release Oral Medication List reviewed and reconciled with the patientUnknown Omeprazole 20 MG Capsule Delayed Release Oral Medication List reviewed and reconciled with the patient * Allergies:?DarvonPlavixshell fishTiclidAtorvastatin Calciumyes[Allergies Verified] Objective: * Vitals:?Wt: 152 lbs, Ht: 66 in, BMI:24.53 Index, BP: 00/00 mm Hg. * Examination: ???General Examination: ?GENERAL APPEARANCE:?pleasant, well nourished, well developed, in no acute distress.?EYES:?sclera non-icteric.?ORAL CAVITY:?mucosa moist.?NECK/THYROID:?no cervical lymphadenopathy, neck supple.?SKIN:?nonjaundiced, no spider angiomata.?HEART:?S1, S2 normal.?LUNGS:?clear to auscultation bilaterally.?ABDOMEN:?normal bowel sounds, no guarding or rigidity, no guarding or rigidity, no masses palpable, soft, nontender, nondistended.?EXTREMITIES:?no edema.?NEUROLOGIC:?alert and oriented.? Assessment: * Assessment: 1.?Gastroesophageal reflux d isease, unspecified whether esophagitis present - K21.9 (Primary)?2.?History of adenomatous polyp of colon - Z86.010?3.?Encounter for screening for malignant neoplasm of colon - Z12.11? Overall, Deepak appears quite well. his upper [...] to keep you advised of his progress. Plan: * Treatment: * Procedure Codes:?3017F COLOR ECTAL CA SCREEN DOC [id number] TOBACCO NON-CSWMH2064 BP SCR NOT PRFRM REC REASON NOS * Preventive Medicine:? ??Counseling:?Care goal follow-up plan:?Above Normal BMI Follow-up?Giving encouragement to exercise,?BMI management provided?Yes.? ??Screenings:?Fall Risk Screening?Fall Risk Assessment:?No falls in the past year,?Screening:?No falls in the past year,?Assessment:?Not performed, no reason specified,?Plan of Care:?Not documented, no reason specified.? * Follow Up:?1 Year * * Sign off status: Completed true * Provider:?Calixto Goncalves MD Date:? 024 Generated for Eloisa crow/Tiffanie/eTransmitting on:?10/17/2024 09:00 AM EDT History and Physical Notes * HPI (History of Present Illness) Category Sub-Category Detail Notes Category Not es incontinence I saw Deepak in followup today in regard to his chronic reflux, some evidence of gastric retention, and discussion of colorectal cancer screening. I last saw Deepak in November, at which time he underwent a followup upper endoscopy. This revealed healing of his previous esophagitis and biopsies from the gastroesophageal junction were negative for any sign of Greenwood's esophagus. There was a small amount of gastric retention but no sign of any gastric outlet obstruction. A subsequent nuclear medicine gastric emptying study in December was within normal limits. He does report that his belching has significantly improved as well as he has remained on a famotidine 40 mg twice a day and has also cut down on his caffeine consumption. He enjoys a good appetite and denies any significant heartburn or dysphagia at the present time. He denies any abdominal pain, jaundice, nor unintentional weight loss. His bowel movements have been regular and without any signs of bleeding. Examination Category Sub-Category Detail Notes Category Not es General Examination GENERAL APPEARANCE: pleasant , well nourished, well developed, in no acute distress HEAD: EYES: sclera non-icteric EARS: NOSE: THROAT: NECK/THYROID: no cervical lymphade nopathy, neck supple HEART: S1, S2 normal CHEST: LUNGS: clear to auscultatio n bilaterally ABDOMEN: normal bowel sounds, no guarding or rigidity, no guarding or rigidity, no masses palpable, soft, nontender, nondistended NEUROLOGIC: alert and oriented SKIN: nonjaundiced, no spi enid angiomata EXTREMITIES: no edema PERIPHERAL PULSES: BACK: BREASTS: MUSCULOSKELETAL: MALE GENITOURINARY: LYMPH NODES: RECTAL EXAM: FEMALE GENITOURINARY: ORAL CAVITY: mucosa moist
--- OUTSIDE RECORDS SUMMARY | 2024-10-17 09:00 | XMS_ITS ---
Author Organization [facility] Address [address] [facility] [address] [place] [phone] Care Team Providers Care Data Collection Interviewer Name Role Phone DELANEY ALEXIS Primary Care Provider Calixto Arteaga [phone] Medications Medication SIG (Take, Route, Fr equency, Duration) Notes Start Date End Date Status Famotidine 40 MG 1 Orally Twice a day for 90 days 12/13/2023 Active Problems Problem Type SNOMED Code ICD Code Onset Dates Problem Status W/U Status Risk Notes Problem Retained food in stomach (K31.89) Active confirmed Encounters Encounter Location Date Provider Diagnosis [facility] [address] [place] [phone] 12/13/2023 Calixto Goncalves Retained food in stomach K31.89 Assessments Encounter Date Diagnosis (ICD Code) Assessment Notes Treatment Notes Treatment Clinical Notes Section Notes 12/13/2023 Retained food in stomach (ICD-10 - K31.89) Plan Of Treatment Medication Medication Name Sig Start Date Stop Date Notes Famotidine 40 MG 1 Orally Twice a day for 90 days 12/13/19 24 Pending Test Test Name Order Date NUC GASTRIC ANTRUM EMPTYING 12/13/2023 Next Appt Details Provider Name:Calixto Goncalves , 04/30/2025 01:00:00 PM, [address] [place] [address], Suite [facility], [place], [address], Progress Notes * LEXA GONSALEZOB:1950 (73 yo M)Acc No.[id number]:12/13/2023 Patient:?PATRIC GONSALEZ :1950???Age:73 Y???Sex:Male Address:[address] [place] [id number] * Refills? Start Famotidine Tablet, 40 MG, Orally, 180, 1, Twice a day, 90 days, Refills=3 Subjective: * Chief Complaints: * ??? * Medical History:? * Surgical History:? * Hospitalization/Major Diagno stic Procedure:? * Medications:? Objective: Assessment: * Assessment: 1.?Retained food in stomach - K31.89 (Primary)? Plan: * Treatment: * 2.?Others? Start Famotidine Tablet, 40 MG, 1, Orally, Twice a day, 90 days, 180, Refills 3.?? * Procedure Codes:? * true * Date:? Generated for Eloisa crow/Tiffanie/Johnsmitting on:?10/17/2024 09:00 AM EDT
[2024-10-17 09:02] VITALS: BP 132/60; PULSE 73; TEMP 36.6; O2SAT 97; BMI 25.1
== END 2024-10-17 09:21 | disposition home or self-care (01) ==
LOC: HO.HMCH 08:50
PROVIDERS: PCP Physician Assistant; Visit Provider Internal Medicine
DX: U07.1 COVID-19 (principal); J06.9 Acute upper respiratory infection, unspecified; E11.9 Type 2 diabetes mellitus without complications

== ENCOUNTER → 2024-10-17 08:50 | Outpatient (BNVA) | payer MEDICARE, SELFPAY | PROVIDERS: PCP Physician Assistant; Visit Provider Internal Medicine | DX: U07.1 COVID-19 (principal); J06.9 Acute upper respiratory infection, unspecified; E11.9 Type 2 diabetes mellitus without complications | CPT/HCPCS: 83036; 96127; 99212 ==

== ENCOUNTER 2024-10-31 08:25 | Outpatient (REF) | payer MEDICARE, SELFPAY ==
--- OUTSIDE RECORDS SUMMARY | 2024-10-31 08:40 | XMS_ITS ---
Author Organization [facility] Address [address] [facility] [address] [place] [address] Care Team Providers Care Merry Go Round Attendant Name Role Phone DELANEY ALEXIS Primary Care Provider Calixto Arteaga [phone] REASON FOR VISIT erosive esophagitis,hiatal hernia,belching Problems Problem Type SNOMED Code ICD Code Onset Dates Problem Status W/U Status Risk Notes Problem Gastro-esophagea l reflux disease without esophagitis ([id number]) Gastro-esophage al reflux disease without esophagitis (K21.9) Active confirmed Encounters Encounter Location Date Provider Diagnosis [facility] [address] [place] [phone] 12/13/2023 Calixto Goncalves Gastro-esophageal reflux disease without esophagitis K21.9 and Hiatal hernia K44.9 Assessments Encounter Date Diagnosis (ICD Code) Assessment Notes Treatment Notes Treatment Clinical Notes Section Notes 12/13/2023 Gastro-esophagea l reflux disease without esophagitis (ICD-10 - K21.9) 12/13/2023 Hiatal hernia (ICD-10 - K44.9) Plan Of Treatment Next Appt Details Provider Name:Calixto Goncalves , 04/30/2025 01:00:00 PM, [address] [facility], [address], [place], [address], Progress Notes * LEXA GONSALEZOB:1950 (73 yo M)Acc No.[id number]:12/13/2023 EGD/MAC Patient:?PATRIC GONSALEZ Provider:?Calixto Goncalves MD :1950???Age:73 Y???Sex:Male Michel e:12/13/2023 Address:[address] [place], [place] [phone] Pcp:DELANEY ALEXIS Subjective: * Chief Complaints: * ???1. Erosive esophagitis,hi atal hernia,belching. * Medical History:? Objective: * Vitals:? Assessment: * Assessment: 1.?Gastro-esophageal reflux disease without esophagitis - K21.9 (Primary)???2.?Hiatal hernia - K44.9??? Plan: * Treatment: * Procedure Codes:?69916 UPPER GI ENDOSCOPY, BIOPSY * * The named appointment provid er may or may not be the originator of this progress note, and it is not deemed complete until electronically signed by the appointment provider. Sign off status: Pending * Provider:?Calixto Goncalves MD Date:? 024 Generated for Eloisa crow/Tiffanie/eTransmitting on:?10/31/2024 08:40 AM EDT
[2024-10-31 08:53] LABS: Hematocrit 42.4 % (42.0-52.0); Hemoglobin 13.8 g/dl (14.0-18.0); Mean Corpuscular HGB Conc 32.5 g/dl (31.0-36.0); Mean Corpuscular Hemoglobin 31.4 pg (27.0-33.0); Mean Corpuscular Volume 96.4 fL (80.0-98.0); Mean Platelet Volume 10.6 fL (9.4-12.4); Platelet Count 251 X10*3/uL (160-400); White Blood Count 9.6 X10*3/uL (4.8-10.8)
[2024-10-31 09:23] LABS: Alanine Aminotransferase 24 U/L (0-40); Albumin Level 4.4 g/dL (3.5-5.0); Alkaline Phosphatase 60 U/L (39-117); Anion Gap 12 (12-20); Aspartate Amino Transferase 30 U/L (5-37); Bilirubin Total 0.6 mg/dL (0.0-1.0); Blood Urea Nitrogen 45 mg/dL (9-16); Calcium 10.3 mg/dL (8.4-10.2); Carbon Dioxide 25 mmol/L (22-29); Chloride 109 mmol/L (96-108); Cholesterol 106 mg/dL (<200); Estimated Glomerular Filt Rate 23; Glucose Fasting 142 mg/dL (60-99); HDL Cholesterol 34 mg/dL (>40); LDL Cholesterol Calculated 42 mg/dL (<100); Potassium 5.5 mmol/L (3.3-5.1); Sodium 140 mmol/L (135-145); Total Protein 6.8 g/dL (6.5-8.0); Triglycerides 151 mg/dL (<150)
[2024-10-31 09:37] LABS: Prostate Specific Antigen Scr 6.39 ng/mL (<0.05-4.0)
[2024-10-31 09:48] LABS: Creatinine Urine 148.16 mg/dL; Microalbum/Creatinine Ratio Ur 12.8 ug/mg cr (<30)
== END 2024-10-31 08:26 | disposition home or self-care (01) ==
LOC: HO.LAB 08:25
PROVIDERS: PCP Physician Assistant; Visit Provider Internal Medicine
DX: I25.10 Atherosclerotic heart disease of native coronary artery without angina pectoris (principal); E11.9 Type 2 diabetes mellitus without complications; Z12.5 Encounter for screening for malignant neoplasm of prostate; R97.20 Elevated prostate specific antigen [PSA]; I10 Essential (primary) hypertension
CPT/HCPCS: 36415; 80053; 80061; 82043; 82570; 84153; 85027

== ENCOUNTER 2024-11-04 09:19 | Outpatient (REF) | payer MEDICARE, SELFPAY ==
--- OUTSIDE RECORDS SUMMARY | 2024-11-04 09:47 | XMS_ITS ---
Author Organization [facility] Address [address] [facility] [address] [place] [address] Care Team Providers Care Warp Picker Name Role Phone DELANEY ALEXIS Primary Care Provider Calixto Arteaga [phone] REASON FOR VISIT erosive esophagitis,hiatal hernia,belching Problems Problem Type SNOMED Code ICD Code Onset Dates Problem Status W/U Status Risk Notes Problem Gastro-esophagea l reflux disease without esophagitis (243959775) Gastro-esophage al reflux disease without esophagitis (K21.9) Active confirmed Encounters Encounter Location Date Provider Diagnosis [facility] Outpatient [address] [place] [phone] 12/13/2023 Calixto Goncalves Gastro-esophageal reflux disease without esophagitis K21.9 and Hiatal hernia K44.9 Assessments Encounter Date Diagnosis (ICD Code) Assessment Notes Treatment Notes Treatment Clinical Notes Section Notes 12/13/2023 Gastro-esophagea l reflux disease without esophagitis (ICD-10 - K21.9) 12/13/2023 Hiatal hernia (ICD-10 - K44.9) Plan Of Treatment Next Appt Details Provider Name:Calixto Goncalves , 04/30/2025 01:00:00 PM, [address] [facility], [address], [place], [address], Progress Notes * LEXA GONSALEZOB:1950 (74 yo M)Acc No.[id number]:12/13/2023 EGD/MAC Patient:?PATRIC GONSALEZ Provider:?Calixto Goncalves MD :1950???Age:73 Y???Sex:Male Michel e:12/13/2023 Address:[address] [place], [place] [phone] Pcp:DELANEY ALEXIS Subjective: * Chief Complaints: * ???1. Erosive esophagitis,hi atal hernia,belching. * Medical History:? Objective: * Vitals:? Assessment: * Assessment: 1.?Gastro-esophageal reflux disease without esophagitis - K21.9 (Primary)???2.?Hiatal hernia - K44.9??? Plan: * Treatment: * Procedure Codes:?95781 UPPER GI ENDOSCOPY, BIOPSY * * The named appointment provid er may or may not be the originator of this progress note, and it is not deemed complete until electronically signed by the appointment provider. Sign off status: Pending * Provider:?Calixto Goncalves MD Date:? 024 Generated for Eloisa crow/Tiffanie/eTransmitting on:?11/04/2024 09:46 AM EDT
[2024-11-04 10:11] LABS: Anion Gap 11 (12-20); Blood Urea Nitrogen 33 mg/dL (9-16); Calcium 9.7 mg/dL (8.4-10.2); Carbon Dioxide 26 mmol/L (22-29); Chloride 110 mmol/L (96-108); Estimated Glomerular Filt Rate 37; Glucose Random 164 mg/dL (60-115); Potassium 5.7 mmol/L (3.3-5.1); Sodium 141 mmol/L (135-145)
== END 2024-11-04 09:20 | disposition home or self-care (01) ==
LOC: HO.LAB 09:19
PROVIDERS: PCP Physician Assistant; Visit Provider Physician Assistant
DX: N17.9 Acute kidney failure, unspecified (principal)
CPT/HCPCS: 36415; 80048; 99397

== ENCOUNTER 2024-11-04 11:23 | Outpatient (AMB) | payer MEDICARE, SELFPAY ==
--- NOTE | 2024-11-04 11:33 | A.OFFPC_ITS ---
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: No Accompanied by: Self / Same As Patient Allergies clopidogrel [Plavix] Allergy (Intermediate, Verified 11/04/24 12:15) extremity swelling, itch shellfish derived Allergy (Intermediate, Verified 11/04/24 12:15) Swelling simvastatin Allergy (Intermediate, Verified 11/04/24 12:15) Muscle Pain ticlopidine [From Ticlid] Allergy (Intermediate, Verified 11/04/24 12:15) Extremity swelling, itch atorvastatin Adverse Reaction (Intermediate, Verified 11/04/24 12:15) muscle weakness, other propoxyphene [From Darvon] Adverse Reaction (Mild, Verified 11/04/24 12:15) Headache, Migraine Medication List - Last Reconciled 11/04/24 by Lamont Currie PA-C albuterol sulfate 2.5 mg (3 mL) inhalation Q6H PRN 30 days albuterol sulfate 90 mcg/actuation 2 puffs inhalation Q6H aspirin 81 mg PO DAILY azithromycin (Zithromax) take 500 mg today (day 1), then 250 mg for 4 days (days 2-5) PO carvedilol 9.375 mg (1.5 x 6.25 mg) PO BID cholecalciferol (vitamin D3) 125 mcg PO DAILY diclofenac sodium 1% (Arthritis Pain (diclofenac)) 2 grams topical QID PRN 10 days ezetimibe 10 mg PO DAILY famotidine 40 mg PO BID latanoprost 0.005% 1 drp ophthalmic (eye) QPM lisinopril 2.5 mg PO DAILY metformin 1,000 mg PO BID 90 days nebulizers (AeroEclipse II Nebulizer) As directed nitroglycerin 0.4 mg sublingual Q5M PRN 14 days prednisone 60 mg (3 x 20 mg) PO DAILY rosuvastatin 10 mg PO DAILY sitagliptin phosphate (Januvia) 100 mg PO DAILY 90 days tadalafil 10 mg PO DAILY Tobacco use date assessed: 11/04/24 Last assessed Fall Risk: 11/04/24 Dental Screening Dental Screen Date: 11/04/24 HPI pe - see comments HPI Details Patient is a 74-year-old male here today for a annual physical.. Patient has a past medical history significant for type 2 diabetes, hypertension, hyperlipidemia, coronary artery disease, asthma. . . Concerns--> Recent laboratory tests indicated hyperkalemia with potassium levels elevated above the acceptable range across a couple of tests. 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 This has resulted in acute kidney injury, suggested by previous lab results indicating compromised kidney function. Additionally, the patient continues to suffer from a persistent cough following bronchitis, which was treated with azithromycin and prednisone. He noted phlegm with varying coloration during coughing fits, specifically white or a slight yellow tinge. His recent weight fluctuations could be tied to dehydration, with no changes in dietary habits. ? .. ? Type 2 diabetes:. Patient's type 2 diabetes has been slightly suboptimally controlled. Most recent A1c at 6.4.. Dietary indiscretion due to the holidays. ? .. ? Hypertension: Patient reports blood pressures have been stable at home. Denies any headaches, chest pain, shortness of breath. .. CAD: Lipid panel has been acceptable on current dose of statin therapy. Most recently lipid panel shoing excellent control of his LDL. He otherwise denies any chest discomfort, dizziness, shortness of breath. 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 Colonoscopy done 2019, multiple tubular adenomatous polyps found , he needs repeat colonoscopy this year 2024 .. Vaccine: UTD with Tdap, UTD with PCV, UTD with COVID pfizer. Up-to-date with RSV and shingles vaccines Laboratory Tests 12/25/23 10/31/24 10/31/24 08:40 08:34 08:39 RBC 4.40 L Hgb 13.8 L Potassium 5.5 H D Creatinine 2.77 H PSA Screen 4.44 H 6.39 H Urine Microalbumin 19.0 11/04/24 09:24 RBC Hgb Potassium 5.7 H Creatinine 1.80 H PSA Screen Urine Microalbumin PFS Medical History (Updated 11/04/24 @ 12:29 by Lamont Currie PA-C) Splenic infarct Short-term memory loss Mild cognitive disorder Back pain Diabetes Asthma Elevated cholesterol Myocardial infarction CAD (coronary artery disease) HTN (hypertension) Surgical History H/O esophagogastroduodenoscopy (~12/13/23) H/O foot surgery H/O cataract extraction H/O colonoscopy (~04/03/20) Hx of heart artery stent H/O arthroscopy Family History Father Medical history unknown Mother COPD (chronic obstructive pulmonary disease) Myocardial infarction CAD (coronary artery disease) Social History Housing: House Alcohol intake: current Alcohol intake frequency: holidays/special occasions only Patient Tobacco Use Status: Former Tobacco user Tobacco use type: Cigarette Cigarette Packs Per Day: 0.5 Years Smoked: 20 e-Cigarette/Vaping Use: Never Used Second Hand Smoke Exposure: Yes service: Yes Current occupational status: retired Cognitive needs: No Hearing needs: No Vision needs: No Questionnaire Thrive Questionnaire Date Thrive assessed: 10/17/24 I am a: Patient What is your living situation today?: I have a steady place to live Within the past 12 months, did the food you bought not last and you didn't have the money to get more?: Never true Within the past 12 months, did you worry whether your food would run out before you got money to buy more?: Never true Do you have trouble paying for medicines?: No Do you have trouble getting transportation to medical appointments?: No Do you have trouble paying your heating and electricity bill?: No Do you have trouble taking care of your child, family member or friend?: No Do you have trouble with day-to-day activities such as bathing, preparing meals, shopping, managing finances, etc.?: No Are you currently unemployed and looking for a job?: No Are you interested in more education?: No Please select the resources that you would like help with: None Currently or been in a relationship where the following occur: No concerns reported THRIVE Score: 0 AMARILYS-7 AMB Questionnaire AMARILYS-7 Date AMARILYS - 7 assessed: 10/17/24 Source: Developed by Daina Longoria.W. Shawn, Jeremie Porras and colleagues, with an educational carri from [employer]. Review of Systems Const Denies body aches, Denies chills, Denies excessive sweating, Denies fatigue, Denies fever(s) and Denies headache(s) Eyes Denies blurry vision ENT Denies dysphagia, Denies vertigo, Denies dizziness, Denies headache(s), Denies hearing loss and Denies tinnitus Card Denies chest pain, Denies chest pain with activity, Denies syncope, Denies irregular heart rhythm and Denies dyspnea Resp Denies chest congestion, Denies cough, Denies hemoptysis, Denies dyspnea and Denies wheezing GI Denies abdominal pain, Denies melena, Denies hematochezia, Denies coffee ground emesis, Denies dysphagia, Denies diarrhea, Denies nausea and Denies vomiting Denies difficulty urinating, Denies dysuria, Denies urinary frequency, Denies urinary hesitancy and Denies urinary urgency Musc Denies arthralgias, Denies limited range of motion, Denies muscle cramps and Denies muscle weakness Skin/Breast Denies rash and Denies skin ulcer Neuro Denies Abnormal speech present, Denies confusion, Denies vertigo, Denies dizziness, Denies syncope, Denies headache(s), Denies memory loss and Denies seizure-like activity Psych Denies anxiety, Denies confusion, Denies depression, Denies memory loss, Denies panic attacks and Denies paranoia Endo Denies excessive sweating, Denies fatigue, Denies flushing, Denies polydipsia and Denies polyuria Aller/Immun Denies wheezing Physical exam (Primary Care) Vital Signs: Last Vital Signs Temp 97.1 F 11/04/24 11:54 Pulse 80 11/04/24 11:54 BP 110/62 11/04/24 11:54 Pulse Ox 97 11/04/24 11:54 Oxygen Delivery Method Room Air 11/04/24 11:54 BMI result Body Mass Index 24.3 Tobacco/Smoking Status: Tobacco use Status Tobacco use date assessed 11/04/24 11/04/24 12:01 Patient Tobacco Use Status Former Tobacco user 11/04/24 11:34 Tobacco use type Cigarette 11/04/24 11:34 e-Cigarette/Vaping Use Never Used 11/04/24 11:34 Thrive Assessment: Date of Thrive Assessment Date Thrive assessed 10/17/24 11/04/24 11:34 Currently or been in a relationship where the following occur: No concerns reported Const General: cooperative, comfortable, no acute distress, alert and awake; No confusion Orientation/consciousness: oriented to person, oriented to place, patient oriented x3 and No confusion HENMT Head: Yes normocephalic Ears: external ears normal and TM's normal bilaterally Face and sinus: No sinus tenderness Mouth: Normal oral and palatal mucosa present and tongue normal Teeth and gingiva: dentition normal and gingiva normal Throat: Yes posterior oropharynx normal, Yes tonsils normal and Yes uvula midline Eyes Conjunctivae: conjunctivae normal Sclerae: sclerae normal Pupils: Equal, round and reactive pupils present EOM: EOMs intact bilaterally Direct Ophthalmoscopy: No no photophobia Neck Neck: Yes no lymphadenopathy, No tender and Yes no JVD Thyroid: Thyroid normal Carotids: no bruits Chest Chest palpation & inspection: no tenderness Resp Effort & Inspection: normal respiratory effort, no audible wheezes, not labored and no stridor Auscultation: no crackles, no rales, no rhonchi and no wheezes Cardio Jugular venous distension: no JVD Rate: regular rate, not bradycardic and not tachycardic Rhythm: regular rhythm Bruits: no carotid bruits Peripheral pulses: Peripheral pulses 2+ throughout GI Inspection: Yes normal to inspection, No abdominal wall ecchymosis and No visible herniation Palpation (GI): Soft to palpation, nontender, no guarding, not rigid and No hepatosplenomegaly present Auscultation: normoactive bowel sounds General: Yes no CVA tenderness Back/Spine/Pelvis Back: no CVA tenderness and No back tenderness Cervical Spine: cervical ROM normal Thoracic/Lumbar Spine: thoracic and lumbar spine normal to inspection, straight leg raise negative bilaterally, No thoraco-lumbar ROM limited and No lumbar spinal tenderness Skin Lesions: no lesions Rashes: no rashes Wounds: no wounds Neuro General: oriented to person, oriented to place, patient oriented x3, CN's II-XI intact bilaterally and No confusion Cranial nerves: Yes Equal, round and reactive pupils present and Yes Normal accommodation reflex present Cognition (Neuro): normal cognition Speech: No Abnormal speech present Gait exam (Neuro): Normal gait present Motor exam (neuro): 5/5 motor strength present throughout Extrem Right upper extremity: full ROM; no cyanosis Left upper extremity: full ROM; no cyanosis Right lower extremity: no edema Left lower extremity: no edema Psych Appearance: grossly normal Mental Status: mental status grossly normal Affect: normal affect Attitude: cooperative Thought process: Normal thought process present Coding Level of Care Code Est Pt Prev Care >65y(94880) Diagnoses Annual physical exam Z00.00 Type 2 diabetes mellitus without complication, without long-term current use of insulin E11.9 Diabetes mellitus complication status: without complication Diabetes mellitus longterm insulin use: without longterm use Coronary artery disease involving [place] coronary artery of [place] heart without angina pectoris I25.10 Associated angina: without angina Coronary Disease-Associated Artery/Lesion type: [place] artery [place] vs. transplanted heart: [place] heart Essential hypertension I10 Hypertension type: essential hypertension Hyperkalemia E87.5 RFAI (acute kidney injury) N17.9 Myalgia M79.10 Bronchitis J40 Assessment & Plan Assessment & Plan (1) Annual physical exam: Code(s): Z00.00 - Encounter for general adult medical examination without abnormal findings Category: Medical Plan: as per HPI (2) DMII (diabetes mellitus, type 2): Code(s): E11.9 - Type 2 diabetes mellitus without complications Category: Medical Qualifiers: Diabetes mellitus complication status: without complication Diabetes mellitus longterm insulin use: without terminal computer operator use Qualified Code(s): E11.9 - Type 2 diabetes mellitus without complications Plan: Patient's type 2 diabetes well controlled with current med regime. Most recent A1c 6.4. Will continue current med regime. Goal A1c is to remain below 7.0 (3) CAD (coronary artery disease): Code(s): I25.10 - Atherosclerotic heart disease of [place] coronary artery without angina pectoris Category: Medical Qualifiers: Associated angina: without angina Coronary Disease-Associated Artery/Lesion type: [place] artery [place] vs. transplanted heart: [place] heart Qualified Code(s): I25.10 - Atherosclerotic heart disease of [place] coronary artery without angina pectoris Plan: Most recent lipid panel showing excellent control of his total cholesterol and LDL. He otherwise denies any shortness of breath or chest discomforts. Goal LDL to be optimally below 70 (4) HTN (hypertension): Code(s): I10 - Essential (primary) hypertension Category: Medical Qualifiers: Hypertension type: essential hypertension Qualified Code(s): I10 - Essential (primary) hypertension Plan: Patient's blood pressure acceptable today in office. Will continue current antihypertensive medication with goal blood pressure to remain below 140/90 (5) Hyperkalemia: Code(s): E87.5 - Hyperkalemia Category: Medical Plan: Advised the patient to discontinue lisinopril to help manage elevated potassium. Administer a polystyrene medication to reduce potassium, with labs planned to review within the coming week. (6) RAFI (acute kidney injury): Code(s): N17.9 - Acute kidney failure, unspecified Category: Medical Plan: As above (7) Myalgia: Code(s): M79.10 - Myalgia, unspecified site Category: Medical Plan: Encouraged hydration and resting from intensive manual work. ? Rhabdomyolysis. Will check a creatinine kinase Will hold off on statin and lisinopril at this time and advised patient to hydrate. (8) Bronchitis: Code(s): J40 - Bronchitis, not specified as acute or chronic Category: Medical Plan: Planned chest X-ray to check for any remaining lung issues. Advised trial of anti-allergy meds to lessen environmental influences on cough. Orders: Orders Creatine Kinase Total 11/04/24 M79.10 - Myalgia, unspecified site XR chest 2V 11/04/24 J40 - Bronchitis, not specified as acute or chronic Basic Metabolic Panel 11/04/24 N17.9 - Acute kidney failure, unspecified Medications: New azithromycin For 250 mg dose pack: take 500 mg today (day 1), then 250 mg for 4 days (days 2-5) PO 6 tabs 0RF J40 - Bronchitis, not specified as acute or chronic codeine-guaifenesin 10-100 mg/5 mL 5 mL PO Q6H PRN 120 mL 0RF cough 5 days J40 - Bronchitis, not specified as acute or chronic sodium polystyrene sulf-sorbtl 15-20 gram/60 mL 60 mL PO .weekly 473 mL 0RF 4 weeks E87.5 - Hyperkalemia Discontinued azithromycin (Zithromax) Discontinued Reason: Doctor's Order take 500 mg today (day 1), then 250 mg for 4 days (days 2-5) PO 6 tabs 0RF
[2024-11-04 11:54] VITALS: BP 110/62; PULSE 80; TEMP 36.2; O2SAT 97; BMI 24.3
== END 2024-11-04 12:48 | disposition home or self-care (01) ==
LOC: HO.HMCH 11:25
PROVIDERS: PCP Physician Assistant; Visit Provider Physician Assistant
DX: Z00.00 Encounter for general adult medical examination without abnormal findings (principal); E11.9 Type 2 diabetes mellitus without complications; I25.10 Atherosclerotic heart disease of native coronary artery without angina pectoris; I10 Essential (primary) hypertension; E87.5 Hyperkalemia; N17.9 Acute kidney failure, unspecified; M79.10 Myalgia, unspecified site; J40 Bronchitis, not specified as acute or chronic

== ENCOUNTER 2024-11-07 12:50 | Outpatient (REF) | payer MEDICARE, SELFPAY ==
--- NOTE | ~2024-11-07 | XR_ITS ---
EXAMINATION: XR CHEST CLINICAL INFORMATION: J40 - Bronchitis, not specified as acute or chronic COMPARISON: December 13, 2023. TECHNIQUE: 2 views of the chest were obtained. FINDINGS: 3 mm calcified nodule, left lung. No consolidation, pleural effusion or pneumothorax. Cardiomediastinal silhouette size is normal. Calcified plaque thoracic aorta. Mild multilevel thoracic spondylosis. XR/XR chest 2V IMPRESSION: No acute airspace disease. 3 mm granuloma, left lung. Electronically signed by: Ike Noguera MD 11/07/2024 02:44 PM EDT
[2024-11-07 14:12] LABS: Anion Gap 15 (12-20); Blood Urea Nitrogen 25 mg/dL (9-16); Calcium 10.3 mg/dL (8.4-10.2); Carbon Dioxide 25 mmol/L (22-29); Chloride 108 mmol/L (96-108); Estimated Glomerular Filt Rate 45; Glucose Random 122 mg/dL (60-115); Potassium 5.3 mmol/L (3.3-5.1); Sodium 143 mmol/L (135-145)
--- OUTSIDE RECORDS SUMMARY | 2024-11-07 14:50 | XMS_ITS ---
Author Organization [facility] Address [address] [facility] [place] [address] Care Team Providers Care Special Delivery Carrier Name Role Phone DELANEY ALEXIS Primary Care Provider Calixto Arteaga [phone] REASON FOR VISIT erosive esophagitis,hiatal hernia,belching Problems Problem Type SNOMED Code ICD Code Onset Dates Problem Status W/U Status Risk Notes Problem Gastro-esophagea l reflux disease without esophagitis (588081721) Gastro-esophage al reflux disease without esophagitis (K21.9) Active confirmed Encounters Encounter Location Date Provider Diagnosis [facility] Outpatient [address] [place] [phone] 12/13/2023 Calixto Goncalves Gastro-esophageal reflux disease without esophagitis K21.9 and Hiatal hernia K44.9 Assessments Encounter Date Diagnosis (ICD Code) Assessment Notes Treatment Notes Treatment Clinical Notes Section Notes 12/13/2023 Gastro-esophagea l reflux disease without esophagitis (ICD-10 - K21.9) 12/13/2023 Hiatal hernia (ICD-10 - K44.9) Plan Of Treatment Next Appt Details Provider Name:Calixto Goncalves , 04/30/2025 01:00:00 PM, [address] [facility], [address], [place], [address], Progress Notes * LEXA GONSALEZOB:1950 (74 yo M)Acc No.[id number]:12/13/2023 EGD/MAC Patient:?PATRIC GONSALEZ Provider:?Calixto Goncalves MD :1950???Age:73 Y???Sex:Male Michel e:12/13/2023 Address:[address] [place] [phone] Pcp:DELANEY ALEXIS Subjective: * Chief Complaints: * ???1. Erosive esophagitis,hi atal hernia,belching. * Medical History:? Objective: * Vitals:? Assessment: * Assessment: 1.?Gastro-esophageal reflux disease without esophagitis - K21.9 (Primary)???2.?Hiatal hernia - K44.9??? Plan: * Treatment: * Procedure Codes:?78583 UPPER GI ENDOSCOPY, BIOPSY * * The named appointment provid er may or may not be the originator of this progress note, and it is not deemed complete until electronically signed by the appointment provider. Sign off status: Pending * Provider:?Calixto Goncalves MD Date:? 024 Generated for Eloisa crow/Tiffanie/eTransmitting on:?11/07/2024 02:49 PM EDT
== END 2024-11-07 12:51 | disposition home or self-care (01) ==
LOC: HO.XRAY 12:50
PROVIDERS: PCP Physician Assistant; Visit Provider Physician Assistant
DX: J40 Bronchitis, not specified as acute or chronic (principal); N17.9 Acute kidney failure, unspecified; M79.10 Myalgia, unspecified site
CPT/HCPCS: 36415; 71046; 80048; 82550

== ENCOUNTER → 2024-11-07 13:07 | Outpatient (BNV) | payer MEDICARE, SELFPAY | PROVIDERS: PCP Physician Assistant; Visit Provider Radiology Diagnostic Radiology | DX: R91.1 Solitary pulmonary nodule (principal) | CPT/HCPCS: 71046 ==

== ENCOUNTER 2025-05-03 08:13 | Outpatient (REF) | payer MEDICARE, SELFPAY ==
[2025-05-03 09:17] LABS: Hematocrit 42.4 % (42.0-52.0); Hemoglobin 13.8 g/dl (14.0-18.0); Mean Corpuscular HGB Conc 32.5 g/dl (31.0-36.0); Mean Corpuscular Hemoglobin 31.2 pg (27.0-33.0); Mean Corpuscular Volume 95.7 fL (80.0-98.0); NRBC Abs Auto 0.000 X10*3/uL (0.0-0.012); NRBC Pct Auto 0.0 /100WBC (0.0-0.2); Platelet Count 182 X10*3/uL (160-400); Red Blood Count 4.43 X10*6/uL (4.60-5.80); White Blood Count 6.0 X10*3/uL (4.8-10.8)
[2025-05-03 10:11] LABS: Alanine Aminotransferase 28 U/L (0-40); Albumin Level 4.3 g/dL (3.5-5.0); Alkaline Phosphatase 56 U/L (39-117); Anion Gap 13 (12-20); Aspartate Amino Transferase 26 U/L (5-37); Blood Urea Nitrogen 19 mg/dL (9-16); Calcium 8.9 mg/dL (8.4-10.2); Carbon Dioxide 28 mmol/L (22-29); Chloride 106 mmol/L (96-108); Cholesterol 95 mg/dL (<200); Estimated Glomerular Filt Rate 57; HDL Cholesterol 29 mg/dL (>40); Potassium 4.2 mmol/L (3.3-5.1); Sodium 143 mmol/L (135-145); Total Protein 6.5 g/dL (6.5-8.0); Triglycerides 94 mg/dL (<150)
== END 2025-05-03 08:14 | disposition home or self-care (01) ==
LOC: HO.LAB 08:13
PROVIDERS: PCP Physician Assistant; Visit Provider Physician Assistant
DX: E11.9 Type 2 diabetes mellitus without complications (principal); I25.10 Atherosclerotic heart disease of native coronary artery without angina pectoris; R97.20 Elevated prostate specific antigen [PSA]; Z12.5 Encounter for screening for malignant neoplasm of prostate
CPT/HCPCS: 36415; 80053; 80061; 83036; 84153; 85027

== ENCOUNTER 2025-05-06 10:01 | Outpatient (AMB) | payer MEDICARE, SELFPAY ==
--- NOTE | 2025-05-06 10:15 | A.OFFPC_ITS ---
Vital Signs 05/06/25 10:16 Height 5 ft 6 in Weight 155 lb 2 oz BMI 25.0 BP 120/60 Blood Pressure Location Lt brachial Position Sitting Pulse 63 Pulse Source Pulse Oximeter Temp 97.3 F Temp Source Temporal Artery Scan Pulse Oximetry (%) 97 Oxygen Delivery Method Room Air Intake Visit Reasons: f/u DMI/ HTN - see comments Intake Note: Patient is here to follow up on DM, HTN. Literacy Tutor Required: No Patient Advocate: Not Required per policy Accompanied by: Self / Same As Patient Allergies clopidogrel (Plavix) Allergy (Intermediate, Verified 05/06/25 10:48) extremity swelling, itch shellfish derived Allergy (Intermediate, Verified 05/06/25 10:48) Swelling simvastatin Allergy (Intermediate, Verified 05/06/25 10:48) Muscle Pain ticlopidine (From Ticlid) Allergy (Intermediate, Verified 05/06/25 10:48) Extremity swelling, itch atorvastatin Adverse Reaction (Intermediate, Verified 05/06/25 10:48) muscle weakness, other propoxyphene (From Darvon) Adverse Reaction (Mild, Verified 05/06/25 10:48) Headache, Migraine Medication List - Last Reconciled 05/06/25 by Lamont Currie PA-C albuterol sulfate 2.5 mg (3 mL) inhalation Q6H PRN 30 days albuterol sulfate 90 mcg/actuation 2 puffs inhalation Q6H aspirin 81 mg PO DAILY carvedilol 9.375 mg (1.5 x 6.25 mg) PO BID cholecalciferol (vitamin D3) 125 mcg PO DAILY codeine-guaifenesin 10-100 mg/5 mL 5 mL PO Q6H PRN 5 days diclofenac sodium 1% (Arthritis Pain (diclofenac)) 2 grams topical QID PRN 10 days ezetimibe 10 mg PO DAILY famotidine 40 mg PO BID latanoprost 0.005% 1 drp ophthalmic (eye) QPM lisinopril 2.5 mg PO DAILY metformin 1,000 mg PO BID 90 days nebulizers (AeroEclipse II Nebulizer) As directed nitroglycerin 0.4 mg sublingual Q5M PRN 14 days rosuvastatin 10 mg PO DAILY sitagliptin phosphate (Januvia) 100 mg PO DAILY 90 days sodium polystyrene sulf-sorbtl 15-20 gram/60 mL 60 mL PO .weekly 4 weeks tadalafil 10 mg PO DAILY Tobacco use date assessed: 05/06/25 Fall risk assessment: No Falls in past year Last assessed Fall Risk: 05/06/25 Dental Screening Dental Screen Date: 11/04/24 HPI f/u DMI/ HTN - see comments HPI Details Patient is a 74-year-old male here today for a follow up visit. Patient has a past medical history significant for type 2 diabetes, hypertension, hyperlipidemia, coronary artery disease, asthma. ? .. ? Type 2 diabetes:. Patient's type 2 diabetes has been slightly suboptimally controlled. Most recent A1c at 6.8.. ? .. ? Hypertension: Patient reports blood pressures have been stable at home. Denies any headaches, chest pain, shortness of breath. .. Hyperkalemia: Patient had an issue with hyperkalemia along with RAFI during the summer due to a mild rhabdomyolysis event. Now has normalized on most recent labs .. Elevated PSA : Patient is followed by Urology and most recent PSA is stable. He denies any particular urinary symptoms at this time. .. CAD: Lipid panel has been acceptable on current dose of statin therapy. Most recently lipid panel showing excellent control of his LDL. He otherwise denies any chest discomfort, dizziness, shortness of breath. 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 Laboratory Tests 06/18/22 10/31/24 11/04/24 07:56 08:39 09:24 RBC Hgb 13.8 L Creatinine 1.80 H Hemoglobin A1c % 6.8 LDL Cholesterol, C alc PSA Screen 11/07/24 05/03/25 13:04 08:40 RBC 4.43 L Hgb 13.8 L Creatinine 1.53 H 1.24 Hemoglobin A1c % 6.8 H LDL Cholesterol, C alc 48 PSA Screen 4.05 H [facility] Medical History Splenic infarct Short-term memory loss Mild cognitive disorder Back pain Diabetes Asthma Elevated cholesterol Myocardial infarction CAD (coronary artery disease) HTN (hypertension) Surgical History H/O esophagogastroduodenoscopy (~12/13/23) H/O foot surgery H/O cataract extraction H/O colonoscopy (~04/03/20) Hx of heart artery stent H/O arthroscopy Family History Father Medical history unknown Mother COPD (chronic obstructive pulmonary disease) Myocardial infarction CAD (coronary artery disease) Social History Housing: House Alcohol intake: current Alcohol intake frequency: holidays/special occasions only Patient Tobacco Use Status: Former Tobacco user Tobacco use type: Cigarette Cigarette Packs Per Day: 0.5 Years Smoked: 20 Packs Per Year: 10 e-Cigarette/Vaping Use: Never Used Second Hand Smoke Exposure: Yes service: Yes Current occupational status: retired Cognitive needs: No Hearing needs: No Vision needs: Yes (Glasses) Questionnaire Thrive Questionnaire Date Thrive assessed: 10/17/24 I am a: Patient What is your living situation today?: I have a steady place to live Within the past 12 months, did the food you bought not last and you didn't have the money to get more?: Never true Within the past 12 months, did you worry whether your food would run out before you got money to buy more?: Never true Do you have trouble paying for medicines?: No Do you have trouble getting transportation to medical appointments?: No Do you have trouble paying your heating and electricity bill?: No Do you have trouble taking care of your child, family member or friend?: No Do you have trouble with day-to-day activities such as bathing, preparing meals, shopping, managing finances, etc.?: No Are you currently unemployed and looking for a job?: No Are you interested in more education?: No Please select the resources that you would like help with: None Currently or been in a relationship where the following occur: No concerns reported THRIVE Score: 0 AMARILYS-7 AMB Questionnaire AMARILYS-7 Date AMARILYS - 7 assessed: 10/17/24 Source: Developed by Drs. Calixto Gold, Daina Escobar, Jeremie Porras and colleagues, with an educational carri from [employer]. Review of Systems Const Denies headache(s) Eyes Denies loss of vision ENT Denies vertigo, Denies dizziness, Denies headache(s) and Denies sore throat Card Denies chest pain, Denies leg edema and Denies lightheadedness Resp Denies cough, Denies hemoptysis and Denies wheezing GI Denies abdominal pain, Denies melena, Denies constipation, Denies diarrhea and D enies vomiting Denies dysuria, Denies urinary frequency and Denies urinary urgency Musc Denies arthralgias, Denies joint swelling, Denies numbness and Denies tingling Neuro Denies Abnormal speech present, Denies behavioral changes, Denies vertigo, Denies dizziness, Denies headache(s), Denies loss of vision, Denies memory loss, Denies numbness and Denies tingling Psych Denies anxiety, Denies behavioral changes, Denies depression, Denies memory loss and Denies panic attacks Sumeet/Lymph Denies easy bleeding and Denies easy bruising Aller/Immun Denies wheezing Physical exam (Primary Care) Vital Signs: Last Vital Signs Temp 97.3 F 05/06/25 10:16 Pulse 63 05/06/25 10:16 BP 120/60 05/06/25 10:16 Pulse Ox 97 05/06/25 10:16 Oxygen Delivery Method Room Air 05/06/25 10:16 BMI result Body Mass Index 25.0 Tobacco/Smoking Status: Tobacco use Status Tobacco use date assessed 05/06/25 05/06/25 10:21 Patient Tobacco Use Status Former Tobacco user 05/06/25 10:21 Tobacco use type Cigarette 05/06/25 10:21 e-Cigarette/Vaping Use Never Used 05/06/25 10:21 Thrive Assessment: Date of Thrive Assessment Date Thrive assessed 10/17/24 05/06/25 10:21 Currently or been in a relationship where the following occur: No concerns reported Const General: healthy appearing, no acute distress, alert and awake Nutritional Appearance: well nourished Orientation/consciousness: oriented to person, oriented to place and oriented to time HENMT Ears: TM's normal bilaterally General nose exam: Normal nasal mucous membranes and turbinates present Eyes Conjunctivae: conjunctivae normal Sclerae: sclerae normal Pupils: Equal, round and reactive pupils present Neck Neck: Yes no lymphadenopathy and Yes no JVD Thyroid: Thyroid normal Carotids: no bruits Resp Effort & Inspection: normal respiratory effort and not tachypneic Auscultation: no crackles, no rales, no rhonchi and no wheezes Cardio Rate: regular rate Rhythm: regular rhythm Heart sounds: no murmurs and normal S1 and S2 GI Palpation (GI): Soft to palpation, nontender, no hepatomegaly and no splenomegaly Auscultation: normal bowel sounds Skin General skin exam: no rashes or lesions noted and dry skin Neuro General: oriented to person, oriented to place and oriented to time Cranial nerves: Yes Equal, round and reactive pupils present Speech: No Abnormal speech present Gait exam (Neuro): Normal gait present Motor exam (neuro): no tremor noted Extrem Right upper extremity: full ROM Left upper extremity: full ROM Right lower extremity: full ROM; no edema Left lower extremity: full ROM; no edema Psych Mental Status: mental status grossly normal Speech and movement: Normal speech and movement present Affect: normal affect Attitude: cooperative Thought process: Normal thought process present Coding Level of Care Code Est Pt Level 4 (77387) Diagnoses Type 2 diabetes mellitus without complication, without long-term current use of insulin E11.9 Diabetes mellitus mcc insulin use: without mcc use Diabetes mellitus complication status: without complication Coronary artery disease involving [place] coronary artery of [place] heart without angina pectoris I25.10 Coronary Disease-Associated Artery/Lesion type: [place] artery [place] vs. 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 Most recent a1c 6.8. Will continue current med regime. Goal A1c is to remain below 7.0 (2) CAD (coronary artery disease): Code(s): I25.10 - Atherosclerotic heart disease of [place] coronary artery without angina pectoris Category: Medical Qualifiers: Coronary Disease-Associated Artery/Lesion type: [place] artery [place] vs. transplanted heart: [place] heart Associated angina: without angina Qualified Code(s): I25.10 - Atherosclerotic heart disease of [place] coronary artery without angina pectoris Plan: Most recent lipid panel showing excellent control of his total cholesterol and LDL. He otherwise denies any shortness of breath or chest discomforts. Goal LDL to be optimally below 70 (3) HTN (hypertension): Code(s): I10 - Essential (primary) hypertension Category: Medical Qualifiers: Hypertension type: essential hypertension Qualified Code(s): I10 - Essential (primary) hypertension Plan: Patient's blood pressure acceptable today in office. Will continue current antihypertensive medication with goal blood pressure to remain below 140/90 (4) Hyperkalemia: Code(s): E87.5 - Hyperkalemia Category: Medical Plan: His hyperkalemia has resolved since he has been more hydrated, likely due to mild rhabdomyolysis event starting the summer. (5) Elevated PSA: Code(s): R97.20 - Elevated prostate specific antigen [PSA] Category: Medical Plan: Continues to follow urologist, most recent PSA of 4.02. He denies any particular urinary symptoms. Orders: Orders Lipid Panel Today I25.10 - Atherosclerotic heart disease of [place] coronary artery without angina pectoris Microalbumin, Random (w Creat) Today E11.9 - Type 2 diabetes mellitus without complications Hemoglobin A1c Today E11.9 - Type 2 diabetes mellitus without complications Complete Blood Count no Diff Today E11.9 - Type 2 diabetes mellitus without complications Comprehensive [place]. Panel Fast Today E11.9 - Type 2 diabetes mellitus without complications Prostate Specific Antigen Scr Today R97.20 - Elevated prostate specific antigen [PSA], Z12.5 - Encounter for screening for malignant neoplasm of prostate Medications: Refilled nitroglycerin do not exceed 3 doses per episode 0.4 mg sublingual Q5M PRN 14 tabs 0RF Chest Pain 14 days I25.10 - Atherosclerotic heart disease of [place] coronary artery without angina pectoris
[2025-05-06 10:16] VITALS: BP 120/60; PULSE 63; TEMP 36.3; O2SAT 97; BMI 25.0
== END 2025-05-06 11:03 | disposition home or self-care (01) ==
LOC: HO.HMCH 10:02
PROVIDERS: PCP Physician Assistant; Visit Provider Physician Assistant
DX: E11.9 Type 2 diabetes mellitus without complications (principal); I25.10 Atherosclerotic heart disease of native coronary artery without angina pectoris; I10 Essential (primary) hypertension; E87.5 Hyperkalemia; R97.20 Elevated prostate specific antigen [PSA]

== ENCOUNTER → 2025-05-06 10:01 | Outpatient (BNVA) | payer MEDICARE, SELFPAY | PROVIDERS: PCP Physician Assistant; Visit Provider Physician Assistant | DX: I10 Essential (primary) hypertension (principal); E11.9 Type 2 diabetes mellitus without complications; I25.10 Atherosclerotic heart disease of native coronary artery without angina pectoris; J45.909 Unspecified asthma, uncomplicated; E87.5 Hyperkalemia; R97.20 Elevated prostate specific antigen [PSA] | CPT/HCPCS: 99212 ==